=== PATIENT | male | born 1935 | race Hispanic/Latino ===

== ENCOUNTER 2017-12-19 12:44 | Inpatient (IN) | payer MEDICARE, OTHER ==
[~2017-12-19] VITALS: Ht 162.6 cm; Wt 55.3 kg
[2017-12-19 13:45] LABS: BASOPHILS # (AUTO) 0.1 (0.0-0.1); BASOPHILS % 0.6 % (0.0-1.0); EOSINOPHILS # (AUTO) 0.1 (0.0-0.4); EOSINOPHILS % 0.9 % (0.0-6.0); HEMATOCRIT 39.7 % (38.2-49.6); HEMOGLOBIN 13.7 g/dL (14.0-18.0); LYMPHOCYTES # (AUTO) 1.1 (1.0-3.2); LYMPHOCYTES % 10.4 % (18.0-39.1); MEAN CORPUSCULAR HEMOGLOBIN 31.8 pg (28-32); MEAN CORPUSCULAR HGB CONC 34.5 g/dL (31-35); MEAN CORPUSCULAR VOLUME 92.1 fL (81-99); MONOCYTES # (AUTO) 0.7 (0.2-0.8); MONOCYTES % 6.5 % (4.4-11.3); NEUTROPHILS # (AUTO) 8.8 (2.1-6.9); NEUTROPHILS % 81.3 % (38.7-80.0); PLATELET COUNT 251 x10e3/uL (140-360); RED BLOOD COUNT 4.31 x10e6/uL (4.3-5.7); RED CELL DISTRIBUTION WIDTH 14.7 % (11.7-14.4)
[2017-12-19 13:56] LABS: INR 1.08; PROTHROMBIN TIME 13.2 seconds (11.9-14.5)
[2017-12-19 13:57] LABS: PARTIAL THROMBOPLASTIN TIME 27.5 seconds (23.8-35.5)
[2017-12-19 14:03] LABS: ALANINE AMINOTRANSFERASE 27 IU/L (0-55); ALBUMIN 3.7 g/dL (3.5-5.0); ALKALINE PHOSPHATASE 82 IU/L (40-150); ANION GAP 18.8 mmol/L (8-16); BLOOD UREA NITROGEN 16 mg/dL (7-26); BUN/CREATININE RATIO 23 (6-25); CALCIUM 9.6 mg/dL (8.4-10.2); CARBON DIOXIDE 23 mmol/L (22-29); CHLORIDE 100 mmol/L (98-107); CREATINE KINASE 75 IU/L (30-200); CREATININE, SERUM 0.69 mg/dL (0.72-1.25); EST GLOMERULAR FILTRATION RATE > 60 ML/MIN (60-); GLUCOSE 98 mg/dL (74-118); POTASSIUM 3.8 mmol/L (3.5-5.1); SODIUM 138 mmol/L (136-145)
--- NOTE | 2017-12-19 14:12 | Diagnostic Imaging Report ---
EXAMINATION: CHEST SINGLE (PORTABLE) 12/19/2017 1:00 PM COMPARISON: None INDICATION: Cough, shortness of breath DISCUSSION: LINES: None. LUNGS: Mild biapical scarring. No focal consolidation PLEURA: Blunting of the left costophrenic angle may be related to pleural scarring. No pneumothorax. HEART AND MEDIASTINUM: Normal heart size. Moderate tortuosity of the thoracic aorta. BONES AND SOFT TISSUES: No acute osseous lesion. Multilevel degenerative changes of the thoracic spine IMPRESSION: Biapical pleural/parenchymal scarring as well as pleural scarring in the left lung base. No evidence of infection or pulmonary edema. Jorje Weiner MD Signed by: Dr. Jorje Weiner M.D. on 12/19/2017 2:09 PM
[2017-12-19 14:23] LABS: THYROID STIMULATING HORMONE 2.363 uIU/mL (0.350-4.940)
[2017-12-19 17:34] LABS: CLARITY,URINE HAZY (CLEAR); COLOR,URINE YELLOW (YELLOW); LEUKOCYTE ESTERASE ,URINE NEGATIVE (NEGATIVE); NITRITE,URINE NEGATIVE (NEGATIVE)
[2017-12-19 17:35] LABS: BILIRUBIN,URINE NEGATIVE (NEGATIVE); KETONES,URINE TRACE (NEGATIVE); PROTEIN,URINE DIPSTICK NEGATIVE (NEGATIVE); RBC,URINE 0-5 /HPF (0-5); URINE UROBILINOGEN 0.2 mg/dL (0.2 - 1); WBC,URINE (MAN) 0-5 /HPF (0-5)
[2017-12-19 17:36] LABS: BACTERIA,URINE RARE /HPF; EPITHELIAL CELLS,URINE RARE /LPF
--- NOTE | 2017-12-19 18:12 | Diagnostic Imaging Report ---
EXAM: CT Chest WITH contrast 12/19/2017 4:12 PM INDICATION: Shortness of breath, weakness COMPARISON: Same-day chest radiograph TECHNIQUE: Chest was scanned utilizing a multidetector helical scanner from the lung apex through the level of the adrenal glands after the uneventful administration of IV contrast. Coronal and sagittal reformations were obtained. Pulmonary embolus protocol was performed. IV CONTRAST: 100 mL of Isovue-370 RADIATION DOSE: Total DLP: 397.31 mGy*cm Estimated effective dose: (DLP x 0.014 x size factor) mSv COMPLICATIONS: None FINDINGS: LINES/ TUBES: None. PULMONARY ARTERIES: Technically adequate examination. There is a filling defect in a right lower lobe segmental pulmonary artery (series 2, image 68), consistent with pulmonary embolus. No other pulmonary emboli are seen. The main pulmonary artery is normal in caliber, measuring 2.2 cm. LUNGS AND AIRWAYS: Biapical and bibasilar subpleural scarring. An irregular nodular opacity in the right upper lobe (series 3, image 40) measures 1.1 cm. No focal consolidations. Tiny centrilobular nodules in the superior segment of the left lower lobe (series 3, image 51) and in the right upper lobe (image 58) measure up to about 3 mm and are likely inflammatory. The airways are normal. PLEURA: The pleural spaces are clear. HEART AND MEDIASTINUM:No mediastinal, hilar or axillary lymphadenopathy. The heart is normal in size. There is a small pericardial effusion dense atherosclerotic calcifications of the coronary arteries and thoracic aorta. The visualized thyroid gland is normal. UPPER ABDOMEN: Limited evaluation of the upper abdomen. There are dense atherosclerotic calcifications of the aorta and its branches. Thickening of the adrenal glands without discrete nodule may be due to hyperplasia. BONES: No aggressive lytic or blastic lesions. Multilevel degenerative changes of the thoracic spine. SOFT TISSUES: Unremarkable. IMPRESSION: 1. Small right lower lobe segmental pulmonary embolus.This finding was discussed with Dr. Robledo at 6:08 PM on 12/19/2017. 2. 1.1 cm irregular nodular opacity in the right upper lobe. This may be inflammatory. Recommend follow-up CT in 3-6 months to ensure resolution. 3. Biapical and bibasilar scarring. Signed by: Dr. Jorje Weiner M.D. on 12/19/2017 6:09 PM
[2017-12-19] MEDS ORDERED: ENOXAPARIN SODIUM INJ 100 MG/ML SYR SC SCH (18:15)
[2017-12-19] MEDS ORDERED: SODIUM CHLORIDE 0.9% 1000ML 1,000 ML IV SCH (18:22)
[2017-12-19] MEDS ORDERED: ONDANSETRON HCL INJ 2 MG/ML VIAL IV PRN (18:30)
[2017-12-19] MEDS: ENOXAPARIN INJ 80 MG/0.8 ML SYR SC SCH (19:01)
[2017-12-19] MEDS ORDERED: RAMIPRIL5 MG PO (19:03)
[2017-12-19] MEDS ORDERED: NAMENDA10 MG (19:03)
[2017-12-19] MEDS ORDERED: METFORMIN HCL500 MG PO (19:03)
[2017-12-19] MEDS ORDERED: ATORVASTATIN CA80 MG PO (19:03)
[2017-12-19 20:14] VITALS: BP 133/64
[2017-12-19] MEDS ORDERED: ACETAMINOPHEN 325 MG TAB PO PRN (20:15)
[2017-12-19] MEDS ORDERED: DOCUSATE SODIUM 100 MG CAP PO PRN (20:15)
[2017-12-19] MEDS ORDERED: BENZONATATE 100 MG CAP PO PRN (20:15)
[2017-12-19 20:46] VITALS: BP 133/64
[2017-12-19] MEDS: INSULIN LISPRO 100 UNIT/1 ML 3ML VIAL SQ SCH (21:00)
[2017-12-19] MEDS ORDERED: NON-FORMULARY MEDICATION (Atorvastatin Calcium 80 MG) PO SCH (21:00)
[2017-12-19] MEDS: ATORVASTATIN 40 MG TAB PO SCH (21:00)
[2017-12-19] MEDS: AZITHROMYCIN 500MG/NS 250 ML 250 ML IV SCH (21:12)
[2017-12-19] MEDS: D5.45%NS/KCL 20MEQ 1,000 ML IV SCH (21:12)
[2017-12-19] MEDS: CEFTRIAXONE SOD 1 GM VIAL IV SCH (21:12)
[2017-12-19] MEDS ORDERED: IOPAMIDOL 370 MG/ML 200 ML INFUS..BTL INJ ONE (22:17)
[2017-12-19] MEDS ORDERED: SODIUM CHLORIDE 0.9% 100 ML 100 ML ONE (22:17)
--- NOTE | 2017-12-19 23:11 | History and Physical ---
LOCATION: ER room 11. PRESENTING COMPLAINT: Cough with mucoid sputum with shortness of breath for last 3 days, got worsened today. HISTORY OF PRESENT ILLNESS: An 82-year-old male was admitted from ER. Patient was brought to ER by his daughter. Patient is nonverbal since his last stroke earlier this year, when he was admitted at [facility] as per patient's daughter's statement. He got bedbound since his last stroke. He had also 2 previous strokes in the past. Patient also had history of prostate cancer. He got radiotherapy last year at [facility]. Patient was reasonably well other than bedbound status since last 3 days. He started cough and shortness of breath. Patient did not have any fever. He had cough with profuse mucoid sputum as per his daughter's statement. Patient was able to swallow, but he started coughing with worsening sputum production and shortness of breath this morning. Patient was brought to office of his PCP, Dr. Solomon Santos. He gave patient 1 intramuscular injection of antibiotic as per patient's daughter's statement. Patient was recommended coming to the hospital that is why patient's daughter brought him to this hospital. Patient reportedly did not have any chest pain, nausea, vomiting, abdominal pain, diarrhea. He is nonverbal, but can follow verbal commands. Patient has right-sided hemiparesis, status post last stroke along with aphasia. Patient did not have any loss of consciousness, seizure, headache during the present episode of illness as per his daughter's statement. REVIEW OF SYSTEMS: As per patient's daughter statement. CONSTITUTIONAL: No fever, chills or rigor. ENT: No nasal congestion, no discharge from ear. No visual disturbance. CARDIOVASCULAR: No chest pain, no palpitation. PULMONARY: Cough with mucoid sputum. No hemoptysis. Shortness of breath as per HPI. GASTROINTESTINAL: No abdominal pain, nausea, vomiting. Patient started coughing on taking p.o. food this morning as per patient's daughter's statement. No abdominal pain, nausea, vomiting. No blood in stool, no black stool. : No dysuria, no hematuria. Patient has urinary incontinence. MUSCULOSKELETAL, SKIN, LYMPHATIC: No joint pain, no joint swelling, no skin rash, no swelling, no skin ulcer. NEUROLOGICAL: Right-sided hemiparesis and aphasia, status post ischemic stroke times 3 last time earlier this year. 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 No history of CAD as per patient's daughter's statement. HISTORY OF PAST SURGERY: Herniorrhaphy in remote past. ALLERGIES: ASPIRIN. HOME MEDICATIONS: Patient was on metformin, ramipril, and Lipitor. SOCIAL HISTORY: Patient lives with his daughter in [place]. 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 HABITS: No smoking, drinking, substance abuse history. FAMILY HISTORY: Positive for diabetes mellitus and cancer. EXAM VITALS: BP 130/71, pulse 91, temp 98.3, respiration 24, SpO2 97% at room air. GENERAL: Alert, lying in bed without any distress. Patient appears emaciated with generalized muscle atrophy. HEENT: Pupils are equally reacting. No facial asymmetry. Oral mucosa dry. NECK: No JVD, no carotid bruit, no lymphadenopathy, no thyromegaly. HEART: S1, S2, regular. No murmur. LUNGS: Air entry equal on both sides. No crackles, no rhonchi. ABDOMEN: Soft, nontender. No palpable mass. Scaphoid abdomen. Bowel sounds active in all quadrants. EXTREMITIES: No edema, cyanosis, clubbing. Generalized muscle wasting. NEUROLOGIC: Right upper and lower extremity muscle strength 2/5-3/5 left-sided upper and lower extremities muscle strength 4/5 plantar flexor bilateral. Speech, patient can follow verbal command. LAB DATA: CBC: WBC 10.35, hemoglobin 13.7, hematocrit 39, platelets 251,000, MCV 92, RDW 14, neutrophil 81, lymphocyte 10. PT 13.2, INR 1.08, PTT 27.5. Chemistry panel: Sodium 130, potassium 3.8, chloride 100, CO2 23, anion gap 15, BUN 15, creatinine 0.69, glucose 98, calcium 9.6, total bilirubin 0.5, AST 23, ALT 27, alk phos 82, CK 75, CK-MB 0.6, troponin-I 0.002, BNP 18.9, total protein 7.3, albumin 3.7, globulin 3.6. TSH 2.36. PT 13.2, INR 1.08, PTT 27.5. Urinalysis, negative for protein, glucose. Ketone trace. Blood trace. Leukocyte esterase negative. WBC 0-5, RBC 0-5. MICROBIOLOGY DATA: Blood culture, urine culture in progress. RADIOLOGICAL DATA: X-ray of chest single view, mild apical scarring and no focal consolidation. Blunting of the left costophrenic angle may be related to pleural scarring. No pneumothorax. Normal heart size, moderate tortuosity of the thoracic aorta. CT of chest with IV contrast, there was filling defect in the right lower lobe segmental pulmonary artery, constituted pulmonary embolus. No other pulmonary emboli seen. Mean pulmonary artery is normal. Biapical, bibasilar subpleural scarring. Irregular nodular opacity in the right upper lobe, 1.1 cm. No focal consolidation. Tiny centrilobular nodules in the superior segment of the left lower lobe and in the right upper lobe measuring 3 mm and likely inflammatory. The area reveals a normal pleural spaces earlier. No mediastinal hilar irregular lymphadenopathy. The heart size is normal. Small pericardial effusion. Atherosclerotic calcification of the coronary arteries. Thyroid gland is normal. Dense atherosclerotic calcification of the aorta and its branches. Degenerative changes in the thoracic spine. EKG: Normal sinus rhythm at the rate of 94 beats per minute. Intervals within normal limit. No specific ST/T changes. Small Q-wave seen on leads 1 and avl. ASSESSMENT AND PLAN 1. Cough with shortness of breath secondary to bronchitis versus early pneumonia. Patient was started on antibiotics by his primary care physician in the office. He would be kept on Rocephin, azithromycin for now. Will send sputum for culture. 2. Shortness of breath also due to acute pulmonary embolism affecting right segmental lower lobe pulmonary artery. Patient started on Lovenox therapeutic dose. Would continue Lovenox. Follow park interpretive ranger's recommendation. Dr. Irby is consulted from ER. 3. History of ischemic stroke with right hemiparesis and aphasia. Patient's EKG did not show arrhythmia. He was on Eliquis in the past. As per his daughter's statement was stopped because of patient's frequent fall. Patient is now bedbound. He would need anticoagulation for pulmonary embolism. Would continue Lovenox for now and oral anticoagulation as per park interpretive ranger's and dispatch machine runner's recommendation. 4. Bedbound status. Patient has generalized muscle atrophy. He does not have any tenderness or swelling of the calf muscle. Will ask for a venous Doppler of bilateral lower extremities. 5. Cough with swallowing as per patient's daughter' statement. Would ask for a speech therapy evaluation for swallowing. 6. Dehydration. Patient has ketonuria. He has poor oral intake. Appears has also malnutrition. Will keep patient on IV fluid along with glucose. Patient has mild diabetes mellitus. Will keep patient on the sliding scale insulin. 7. Hypertension. Continue regular medication. 8. Hyperlipidemia. Continue regular medication. 9. Diabetes mellitus, type 2. Patient was on metformin. Would hold metformin. Patient got IV contrast for CT of chest. Keep patient on sliding scale insulin for now. 10. Gastrointestinal prophylaxis. Will keep patient on Protonix p.o. for now. 11. Discharge plan will depend upon pulmonology's, dispatch machine runner's recommendation, and patient's response to treatment. Job#: [id number] YUMIKO
[2017-12-20] VITALS (7 sets, daily range): BP systolic 108–159; BP diastolic 56–98
[2017-12-20 02:48] LABS: CREATINE KINASE MB 0.8 ng/mL (0-5.0)
[2017-12-20 06:00] LABS: BASOPHILS # (AUTO) 0.1 (0.0-0.1); EOSINOPHILS # (AUTO) 0.2 (0.0-0.4); EOSINOPHILS % 2.8 % (0.0-6.0); HEMATOCRIT 37.1 % (38.2-49.6); HEMOGLOBIN 12.7 g/dL (14.0-18.0); LYMPHOCYTES # (AUTO) 1.1 (1.0-3.2); LYMPHOCYTES % 17.5 % (18.0-39.1); MEAN CORPUSCULAR HEMOGLOBIN 31.7 pg (28-32); MEAN CORPUSCULAR HGB CONC 34.2 g/dL (31-35); MEAN CORPUSCULAR VOLUME 92.5 fL (81-99); MONOCYTES # (AUTO) 0.5 (0.2-0.8); MONOCYTES % 8.6 % (4.4-11.3); NEUTROPHILS # (AUTO) 4.3 (2.1-6.9); NEUTROPHILS % 69.8 % (38.7-80.0); PLATELET COUNT 187 x10e3/uL (140-360); RED BLOOD COUNT 4.01 x10e6/uL (4.3-5.7); RED CELL DISTRIBUTION WIDTH 14.6 % (11.7-14.4)
[2017-12-20] MEDS: D5.45%NS/KCL 20MEQ 1,000 ML IV SCH ×2 (06:15→16:07)
[2017-12-20 06:36] LABS: ALANINE AMINOTRANSFERASE 18 IU/L (0-55); ALBUMIN 3.2 g/dL (3.5-5.0); ALBUMIN/GLOBULIN RATIO 1.1 (0.8-2.0); ALKALINE PHOSPHATASE 70 IU/L (40-150); AMYLASE 43 U/L (25-125); ANION GAP 11.2 mmol/L (8-16); BLOOD UREA NITROGEN 11 mg/dL (7-26); BUN/CREATININE RATIO 22 (6-25); CALCIUM 8.9 mg/dL (8.4-10.2); CARBON DIOXIDE 25 mmol/L (22-29); CHLORIDE 101 mmol/L (98-107); EST GLOMERULAR FILTRATION RATE > 60 ML/MIN (60-); GLUCOSE 99 mg/dL (74-118); LIPASE 12 U/L (8-78); MAGNESIUM 1.6 MG/DL (1.3-2.1); POTASSIUM 3.2 mmol/L (3.5-5.1); SODIUM 134 mmol/L (136-145)
[2017-12-20 07:05] LABS: CREATINE KINASE MB 0.9 ng/mL (0-5.0)
[2017-12-20] MEDS: INSULIN LISPRO 100 UNIT/1 ML 3ML VIAL SQ SCH ×4 (07:30→21:37)
[2017-12-20] MEDS ORDERED: PANTOPRAZOLE SOD 40 MG TABEC PO SCH (07:30)
[2017-12-20] MEDS ORDERED: RAMIPRIL 5 MG CAP PO SCH (09:00)
[2017-12-20] MEDS: ENOXAPARIN INJ 80 MG/0.8 ML SYR SC SCH ×2 (09:48→21:05)
[2017-12-20] MEDS ORDERED: POTASSIUM CHLORIDE 20MEQ/100ML 200 ML IV ONE (11:00)
[2017-12-20] MEDS ORDERED: SODIUM CHLORIDE 0.9% 500ML 500 ML ONE (11:35)
[2017-12-20 11:47] LABS: CREATINE KINASE MB 0.9 ng/mL (0-5.0)
[2017-12-20] MEDS: METOPROLOL TARTRATE INJ 1 MG/ML VIAL IV SCH ×2 (11:52→21:05)
--- NOTE | 2017-12-20 14:29 | Diagnostic Imaging Report ---
EXAM: Complete Abdominal Ultrasound INDICATION: Abdominal pain. . Anorexia/ ca prostate COMPARISON: None. TECHNIQUE: Transverse and longitudinal images of the upper abdomen were obtained. FINDINGS: Liver: Size: 13.8 cm in the right midclavicular line, normal Appearance: Mild coarsened echotexture., smooth contour Mass: No focal masses Spleen: Size: 8.2 cm in length, normal Echogenicity: Normal Mass: No focal masses Gallbladder: Stones/Sludge: None Wall: 0.34 cm which is borderline thickened, likely due to underdistention. Appearance: No wall thickening, pericholecystic fluid or hydrops. Sonographic Hale's Sign: Negative Bile Ducts: Intrahepatic Ducts: No dilatation Extrahepatic Ducts: Common bile duct measures 0.4 cm, no dilatation Pancreas: Not visualized due to shadowing from overlying bowel gas. Kidneys: Length: Right 11.2 cm Left 9.6 cm Echogenicity: Normal Collecting System: No hydronephrosis Stone: None Cyst/Mass: None Vessels: Aorta: Visualized portions are normal Inferior Vena Cava: Not visualized due to shadowing from overlying bowel gas. Main Portal Vein: 0.9 cm, normal size with hepatopetal flow. Free Fluid: No ascites or pleural effusion IMPRESSION: No acute abdominal abnormality. Signed by: Dr. Ibrahima Paz M.D. on 12/20/2017 2:25 PM
--- NOTE | 2017-12-20 17:19 | Consultation ---
DATE OF CONSULTATION: December 20, 2017 CARDIOLOGY CONSULTATION REFERRING PHYSICIAN: Solomon Santos MD REASON FOR CONSULTATION: Pulmonary embolism. HISTORY OF PRESENT ILLNESS: Mr. Ta is a pleasant, 82-year-old man with advanced vascular dementia, prior cerebrovascular accident with residual right-sided paresis, diabetes mellitus, hypertension, dyslipidemia. Previously on anticoagulation with Eliquis as per the daughter, Kamila, due to issues with recurrent strokes and possible arrhythmia, unspecified. He had anticoagulation discontinued due to recurrent falls. He is now bedbound. He presents to [facility] after progressively worsening shortness of breath and cough with productive sputum over the following 3 to 4 days. He was seen by his primary care provider who initiated antibiotics and directed the patient to the ER. Initial evaluation was significant for a CAT scan with 1.1-cm irregular nodule, possibly reactive, for which followup with imaging studies is advised by the radiology report, and segmental pulmonary embolism was also found. His white count was slightly elevated at 10.3. His creatinine is 0.6. His serial cardiac enzymes and BNP were within normal values. Upon our conversation today, he is minimally verbal. He does track with gaze. Discussed at length with daughter. EKG shows normal sinus rhythm with nonspecific repolarization abnormalities. REVIEW OF SYSTEMS: A 12-system review is negative except for as noted above. ALLERGIES: PER EMR, ASPIRIN. PAST MEDICAL HISTORY: As per HPI, diabetes, hypertension, dyslipidemia, CVA. HOME MEDICATIONS: Please see home medication reconciliation form. SOCIAL HISTORY: Lives with daughter. Retired. No smoking, alcohol or drugs reported. FAMILY HISTORY: Significant for diabetes and cancer. PHYSICAL EXAMINATION VITAL SIGNS: Blood pressure 130/70, heart rate 64, respiratory rate 14. O2 sat is 97% on room air. GENERAL: No acute distress. Alert, active. NECK: No JVD. No carotid bruit. CHEST: Clear to auscultation bilaterally. CARDIOVASCULAR: Regular rate and rhythm, normal S1 and S2. No S3 or S4. ABDOMEN: Soft and nontender. EXTREMITIES: No edema. Warm distal extremities. STUDIES: Reviewed. CAT scan, chest x-ray, and EKG reviewed. Significant studies as per HPI. Also, hemoglobin 13.7. INR is 1.08. Normal transaminases. Urinalysis with white blood cells 0-5 and red blood cells 0-5. Blood cultures and urine cultures sent and pending. ASSESSMENT 1. Pulmonary embolus, segmental, with no evidence of high risk features: negative troponin and normal B-type natriuretic peptide. No hypotension, no tachycardia, no syncope or presyncope. 2. Hypertension. 3. Dyslipidemia. 4. Diabetes. 5. History of cerebrovascular accident. 6. Arrhythmia, unspecified, with telemetry apparently showing normal sinus rhythm. RECOMMENDATIONS: Discussed at length with the patient and daughter. The patient was previously on Eliquis. Discussed options for anticoagulation including vitamin K antagonist and NOACs. The patient's daughter prefers Eliquis since he previously was on it. Would advise initiating eliquis 10 mg every 12 hours for 7 days followed by 5 mg every 12 hours. Given lack of initial features and advanced comorbidities and bedridden state, no additional interventions are advised at this point in time from a pulmonary embolism standpoint. Antibiotics, defer to primary service. Resume rest of cardiovascular medications. Thank you for the opportunity to participate in the care of this nice gentleman. Thank you for this kind referral. Job#: [id number] YUMIKO
[2017-12-20] MEDS: CEFTRIAXONE SOD 1 GM VIAL IV SCH (21:04)
[2017-12-20] MEDS: AZITHROMYCIN 500MG/NS 250 ML 250 ML IV SCH (21:04)
[2017-12-20] MEDS: ATORVASTATIN 40 MG TAB PO SCH (21:05)
--- NOTE | 2017-12-20 21:20 | Consultation ---
DATE OF CONSULTATION: December 20, 2017 PULMONARY CONSULTATION REASON FOR THE CONSULT: Pulmonary embolism, abnormal CT of the chest. HPI: Mr. Ta is an 82-year-old male who presented with increasing cough and phlegm and shortness of breath. He is bedbound. He is able to eat. He has previous history of stroke. For last 6 months, he has not walked. In the emergency room, patient was started on IV antibiotics, and a CT of the chest was done. CT of the chest reported a small right lower lobe segmental pulmonary embolus and 1.1 cm nodule in the right upper lobe, no clear-cut evidence of pneumonia. He is currently denying any complaints of chest pain, nausea, vomiting, shortness of breath. He is awake and alert and following commands. REVIEW OF SYSTEMS: GENERAL: Denies any fever or chills. HEAD: Denies any head trauma. ENT: Denies any earache. CVS: Denies any chest pain. RESPIRATORY: Cough and shortness of breath. The rest of the review of systems are negative except as in HPI. PAST MEDICAL HISTORY: History of stroke, bedbound, hypertension. Patient has ischemic stroke with right hemiparesis. Also has history of prostate cancer, last year has received radiation treatment. Bedbound status and debility. Patient's daughter also told me that he has been on Xarelto, but it was stopped because of his recurrent falls, but now he has been bedbound for 6 months, it was previously when he was trying to walk. Hernia repair in the remote past. SOCIAL HISTORY: He has never smoked. He lives with his daughter currently. He does not drink as well. FAMILY HISTORY: Significant for diabetes and cancer. PHYSICAL EXAMINATION: VITAL SIGNS: Temperature 96, pulse of 64, blood pressure 135/63, respiratory rate of 18, O2 sat 98% on room air. HEENT: Head atraumatic, normocephalic. NECK: Supple. CHEST: Clear to auscultation bilaterally. No wheezing. HEART: S1 and S2 audible. No murmurs, gallops, or rubs. ABDOMEN: Soft, nontender. EXTREMITIES: No clubbing, cyanosis, or edema. NEUROLOGICAL: Awake and alert, but minimal conversation, following commands. LABS: Sodium 134, potassium 3.2, chloride 101, BUN 11, creatinine 0.5. White count of 10,000 when he came in, now white count is 6000; hemoglobin 12.7; platelets 187,000. INR is 1.08. Blood cultures have been pending. CT chest, I have reviewed the images. Patient has a small segmental emboli in the right lower lobe arteries, there is a right-sided nodule as well, no evidence of pneumonia. ASSESSMENT/PLAN: Mr. Ta is an 82-year-old male who presented with increasing cough and phlegm. Patient eats at home, has previous history of stroke. CURRENT PROBLEMS: 1. Increasing cough and phlegm, could be questionable dysphagia because of the stroke. Recommend swallowing evaluation. 2. Segmental pulmonary embolism. I had a detailed discussion with patient's daughter over the phone. Patient is now bedbound, he used to walk and had recurrent falls, and Xarelto was stopped. At this point, I explained to her in detail about the risks and benefits of anticoagulation and she opted that patient should be anticoagulated. Since the patient has ongoing risk of pulmonary embolism or DVTs because of being bedbound, I recommend that patient should have chronic anticoagulation granted the family understand the risks and benefits of the anticoagulation. Currently, he is on Lovenox which can be switched to Xarelto upon discharge. 3. Lung nodule. It is greater than 1 cm. Patient has no history of smoking, however, he is high risk because he had a history of prostate cancer last year. Since it is in acute setting, I have recommended that a CT chest needs to be done in 3 months to follow up on the nodule because if the nodule increases in size or stays the same, then biopsy versus PET scan will need to be considered. 4. At this point, also I will recommend continuing the antibiotic for possibly questionable aspiration. I thank Dr. Groves for this consultation. Job#: [id number]
[2017-12-21] VITALS (7 sets, daily range): BP systolic 153–177; BP diastolic 83–98
[2017-12-21] MEDS: D5.45%NS/KCL 20MEQ 1,000 ML IV SCH ×2 (02:15→12:15)
[2017-12-21 06:02] LABS: BASOPHILS % 0.2 % (0.0-1.0); EOSINOPHILS % 0.1 % (0.0-6.0); HEMATOCRIT 42.6 % (38.2-49.6); HEMOGLOBIN 14.6 g/dL (14.0-18.0); LYMPHOCYTES # (AUTO) 0.6 (1.0-3.2); LYMPHOCYTES % 4.4 % (18.0-39.1); MEAN CORPUSCULAR HEMOGLOBIN 31.1 pg (28-32); MEAN CORPUSCULAR HGB CONC 34.3 g/dL (31-35); MEAN CORPUSCULAR VOLUME 90.6 fL (81-99); MONOCYTES # (AUTO) 0.8 (0.2-0.8); MONOCYTES % 5.5 % (4.4-11.3); NEUTROPHILS # (AUTO) 13.1 (2.1-6.9); NEUTROPHILS % 89.5 % (38.7-80.0); PLATELET COUNT 274 x10e3/uL (140-360); RED CELL DISTRIBUTION WIDTH 14.5 % (11.7-14.4)
[2017-12-21 06:37] LABS: ANION GAP 15.5 mmol/L (8-16); BLOOD UREA NITROGEN 8 mg/dL (7-26); BUN/CREATININE RATIO 13 (6-25); CALCIUM 9.6 mg/dL (8.4-10.2); CARBON DIOXIDE 24 mmol/L (22-29); CHLORIDE 99 mmol/L (98-107); EST GLOMERULAR FILTRATION RATE > 60 ML/MIN (60-); GLUCOSE 176 mg/dL (74-118); POTASSIUM 3.5 mmol/L (3.5-5.1); SODIUM 135 mmol/L (136-145)
[2017-12-21] MEDS: INSULIN LISPRO 100 UNIT/1 ML 3ML VIAL SQ SCH ×4 (07:30→21:29)
[2017-12-21] MEDS: METOPROLOL TARTRATE INJ 1 MG/ML VIAL IV SCH ×2 (09:00→21:32)
[2017-12-21] MEDS: PANTOPRAZOLE 40 MG 10ML VIAL IV SCH (09:00)
[2017-12-21] MEDS: ENOXAPARIN INJ 80 MG/0.8 ML SYR SC SCH ×2 (09:00→21:32)
[2017-12-21] MEDS: PIPER-TAZ 3.375 GM 50 ML IV SCH ×2 (12:00→18:00)
[2017-12-21] MEDS: AMLODIPINE BESYLATE 5 MG TAB PO SCH (17:35)
[2017-12-21] MEDS: ATORVASTATIN 40 MG TAB PO SCH ×2 (19:28→21:32)
--- NOTE | 2017-12-21 19:36 | Progress Note ---
DATE: December 21, 2017 CARDIOLOGY PROGRESS NOTE SUBJECTIVE: Nonverbal. No complaints today. PHYSICAL EXAMINATION VITAL SIGNS: Temperature 97.1, heart rate 80, respiratory rate 16, blood pressure 171/85. GENERAL: In no acute distress. Alert. NECK: No JVD. CHEST: Clear to auscultation. CARDIOVASCULAR: Regular rate and rhythm, normal S1 and S2. ABDOMEN: Soft. EXTREMITIES: No edema. CARDIOVASCULAR MEDICATIONS: Reviewed. On amlodipine, Lovenox, atorvastatin, metoprolol. STUDIES: Reviewed. Hemoglobin 14.6, platelets 274. Creatinine 0.6, glucose 160. ASSESSMENT 1. Pulmonary embolism. 2. Dementia. 3. Hypertension. 4. Dyslipidemia. RECOMMENDATIONS 1. Eliquis if okay with the rest of the treating physicians for treatment of pulmonary embolism. 2. Continue the rest of the cardiovascular medications as blood pressure allows. If needed, adjust antihypertensives upwards. Can increase amlodipine if necessary as well as metoprolol. Will assess tomorrow. Continue the rest of the cardiovascular medications. 3. Okay to discharge tomorrow if the blood pressure is optimized and once anticoagulation is agreed upon by the other treating physicians. Job#: [id number]
[2017-12-21] MEDS: AZITHROMYCIN 500MG/NS 250 ML 250 ML IV SCH (21:35)
[2017-12-22] MEDS: PIPER-TAZ 3.375 GM 50 ML IV SCH ×4 (00:02→17:43)
[2017-12-22] MEDS: D5.45%NS/KCL 20MEQ 1,000 ML IV SCH ×3 (00:02→18:15)
[2017-12-22 05:34] LABS: BASOPHILS % 0.1 % (0.0-1.0); HEMOGLOBIN 14.1 g/dL (14.0-18.0); LYMPHOCYTES # (AUTO) 0.9 (1.0-3.2); LYMPHOCYTES % 6.5 % (18.0-39.1); MEAN CORPUSCULAR HEMOGLOBIN 31.4 pg (28-32); MEAN CORPUSCULAR HGB CONC 34.4 g/dL (31-35); MEAN CORPUSCULAR VOLUME 91.3 fL (81-99); MONOCYTES # (AUTO) 0.9 (0.2-0.8); MONOCYTES % 6.9 % (4.4-11.3); NEUTROPHILS # (AUTO) 11.5 (2.1-6.9); NEUTROPHILS % 86.2 % (38.7-80.0); PLATELET COUNT 265 x10e3/uL (140-360); RED BLOOD COUNT 4.49 x10e6/uL (4.3-5.7); RED CELL DISTRIBUTION WIDTH 14.5 % (11.7-14.4)
[2017-12-22 06:01] LABS: ALANINE AMINOTRANSFERASE 14 IU/L (0-55); ALBUMIN 3.2 g/dL (3.5-5.0); ALKALINE PHOSPHATASE 69 IU/L (40-150); ANION GAP 13.5 mmol/L (8-16); BLOOD UREA NITROGEN 9 mg/dL (7-26); BUN/CREATININE RATIO 14 (6-25); CALCIUM 9.3 mg/dL (8.4-10.2); CARBON DIOXIDE 25 mmol/L (22-29); CHLORIDE 101 mmol/L (98-107); CREATININE, SERUM 0.66 mg/dL (0.72-1.25); EST GLOMERULAR FILTRATION RATE > 60 ML/MIN (60-); GLUCOSE 205 mg/dL (74-118); POTASSIUM 3.5 mmol/L (3.5-5.1); SODIUM 136 mmol/L (136-145)
[2017-12-22 06:23] VITALS: BP 157/81
[2017-12-22 07:25] VITALS: BP 147/74
[2017-12-22] MEDS: INSULIN LISPRO 100 UNIT/1 ML 3ML VIAL SQ SCH ×4 (08:00→20:42)
[2017-12-22] MEDS: METOPROLOL TARTRATE INJ 1 MG/ML VIAL IV SCH (08:25)
[2017-12-22] MEDS: ENOXAPARIN INJ 80 MG/0.8 ML SYR SC SCH (08:30)
[2017-12-22] MEDS: AMLODIPINE BESYLATE 5 MG TAB PO SCH (08:30)
[2017-12-22] MEDS: PANTOPRAZOLE 40 MG 10ML VIAL IV SCH (08:30)
[2017-12-22 09:20] VITALS: BP 147/74
[2017-12-22 12:00] VITALS: BP 141/86
[2017-12-22] MEDS ORDERED: METOPROLOL TARTRATE 25 MG TAB PO SCH ×2 (14:00→22:00)
--- NOTE | 2017-12-22 15:11 | Diagnostic Imaging Report ---
EXAM: Modified barium swallow INDICATION: Dysphagia COMPARISON: None FINDINGS This examination was conducted in conjunction with speech pathologist. Patient was given, by mouth, liquids and solids of various consistencies. Examination showed premature spillage over base of tongue, vallecula and piriform sinuses with all consistencies. No laryngeal penetration or aspiration. Moderate vallecular, pyriform sinus residue following swallows of all consistencies. Fluoro time: 02:59 minutes IMPRESSION: <No penetration or aspiration. Please see speech pathology report for detailed description and recommendations.> Signed by: Dr. Vinay Kilgore M.D. on 12/22/2017 3:07 PM
[2017-12-22 16:00] VITALS: BP 137/85
--- NOTE | 2017-12-22 16:15 | Progress Note ---
DATE: December 22, 2017 CARDIOLOGY PROGRESS NOTE SUBJECTIVE: No complaints. PHYSICAL EXAMINATION VITAL SIGNS: Temperature 98.6. Heart rate 103 to 150, atrial fibrillation with episodes of rapid ventricular response on tele. Respiratory rate 18. Blood pressure 141/86. O2 sat is 97% on room air. GENERAL: In no acute distress. Alert. CHEST: Clear to auscultation. CARDIOVASCULAR: Irregularly irregular rate and rhythm, normal S1 and S2. No S3 or S4. Systolic ejection murmur 1/6. ABDOMEN: Soft. EXTREMITIES: No edema. CARDIOVASCULAR MEDICATIONS 1. Metoprolol tartrate initiated today at 25 mg every 8 hours. 2. Amlodipine 5 mg daily. Will discontinue to provide further room for up-titration of beta karime. 3. Atorvastatin 80 mg nightly. 4. Eliquis 5 mg, start at 10 mg every 12 hours for 7 days followed by 5 mg every 12 hours thereafter for PE treatment. STUDIES: Reviewed. ASSESSMENT 1. Pulmonary embolism. 2. Atrial fibrillation with episodes of rapid ventricular response. 3. Dementia. 4. Hypertension. 5. Dyslipidemia. RECOMMENDATIONS 1. Eliquis at PE treatment dose per protocol. 2. Discontinue Lovenox. 3. Up-titrate beta karime. 4. Discontinue amlodipine. Job#: [id number]
[2017-12-22] MEDS: APIXABAN 5 MG TABLET PO SCH (18:22)
[2017-12-22] MEDS ORDERED: APIXABAN 5 MG TABLET PO SCH (19:00)
[2017-12-22 20:00] VITALS: BP 145/72
[2017-12-22] MEDS: AZITHROMYCIN 500MG/NS 250 ML 250 ML IV SCH (20:42)
[2017-12-22] MEDS: METOPROLOL TARTRATE 50 MG TAB PO SCH (22:06)
[2017-12-23] VITALS (7 sets, daily range): BP systolic 97–158; BP diastolic 71–89
[2017-12-23] MEDS: PIPER-TAZ 3.375 GM 50 ML IV SCH ×4 (00:20→17:42)
[2017-12-23] MEDS: D5.45%NS/KCL 20MEQ 1,000 ML IV SCH ×2 (03:05→17:42)
[2017-12-23] MEDS: METOPROLOL TARTRATE 50 MG TAB PO SCH ×3 (06:16→21:24)
[2017-12-23] MEDS: INSULIN LISPRO 100 UNIT/1 ML 3ML VIAL SQ SCH ×4 (07:30→21:23)
[2017-12-23] MEDS: PANTOPRAZOLE 40 MG 10ML VIAL IV SCH (08:31)
[2017-12-23] MEDS: APIXABAN 5 MG TABLET PO SCH ×2 (08:31→17:42)
--- NOTE | 2017-12-23 12:42 | Progress Note ---
DATE: December 23, 2017 CARDIOLOGY PROGRESS NOTE SUBJECTIVE: No complaints. PHYSICAL EXAMINATION VITAL SIGNS: Temperature 97.9. Heart rate 80. Respiratory rate 18. Blood pressure 158/88. O2 sat is 95% on room air. GENERAL: In no acute distress. Alert. NECK: No JVD. CHEST: Clear to auscultation. CARDIOVASCULAR: Regular rate and rhythm. Normal S1 and S2. ABDOMEN: Soft. EXTREMITIES: No edema. CARDIOVASCULAR MEDICATIONS 1. Eliquis 10 mg b.i.d. for 7 days followed by 5 mg b.i.d. thereafter. 2. Metoprolol tartrate 50 mg every 8 hours. 3. Atorvastatin 80 mg nightly. STUDIES: White blood cells 13.3, hemoglobin 14.1, platelets 265. Glucose 200. ASSESSMENT 1. Atrial fibrillation with episodes of rapid ventricular response, now improved. 2. Pulmonary embolism. 3. Advanced dementia. RECOMMENDATIONS: Continue current cardiovascular medications and monitor blood pressure. If blood pressure remains elevated over the course of the following days, can up-titrate beta karime further. He has self-converted back to sinus rhythm in the 80s to 90s as noted on telemetry. Job#: [id number]
[2017-12-23] MEDS: ALBUTEROL/IPRATROPIUM 3 ML NEB NEB PRN (19:20)
[2017-12-23] MEDS ORDERED: FUROSEMIDE INJ 10 MG/ML 4 ML VIAL IV ONE (20:45)
[2017-12-23] MEDS: ATORVASTATIN 40 MG TAB PO SCH (21:23)
[2017-12-23] MEDS: AZITHROMYCIN 500MG/NS 250 ML 250 ML IV SCH (21:23)
--- NOTE | 2017-12-23 22:03 | Diagnostic Imaging Report ---
EXAM: CHEST SINGLE (PORTABLE), AP 1 view INDICATION: Shortness of breath, abdominal distention COMPARISON: AP view of the chest December 19, 2017 FINDINGS: LINES/TUBES: None LUNGS: New consolidations in each lung base, right greater than left. PLEURA: No effusions or pneumothorax. HEART AND MEDIASTINUM: Normal size and contour. BONES AND SOFT TISSUES: Partially visualized distended stomach. IMPRESSION: 1. Findings concerning for multifocal pneumonia or aspiration. 2. Partially visualized distended the stomach. Signed by: Dr. Carolina Ibarra M.D. on 12/23/2017 9:59 PM
--- NOTE | 2017-12-23 22:03 | Diagnostic Imaging Report ---
EXAM: ABDOMEN COMP INCL UPR or DECUB, portable supine and erect INDICATION: Shortness of breath, abdominal distention COMPARISON: None FINDINGS: LINES/TUBES: None BOWEL PATTERN: Marked distention of the stomach and proximal small bowel. SOFT TISSUES: Limited evaluation secondary to motion artifact. Oral contrast seen within the stomach. Generator pack projects over the left upper abdomen. LUNG BASES: Poorly visualized secondary to motion artifact. BONES: No acute findings. IMPRESSION: Marked distention of the stomach and proximal bowel consistent with small bowel obstruction. Signed by: Dr. Carolina Ibarra M.D. on 12/23/2017 9:59 PM
[2017-12-23] MEDS ORDERED: SODIUM CHLORIDE 0.9% 1000ML 1,000 ML ONE (22:30)
[2017-12-23] MEDS ORDERED: VECURONIUM BROMIDE FOR INJ 20 MG VIAL IV STA (22:59)
[2017-12-23] MEDS ORDERED: PROPOFOL IV EMULSION 10MG/ML 100 ML IV SCH (23:00)
[2017-12-23] MEDS ORDERED: VECURONIUM BROMIDE FOR INJ 20 MG VIAL ONE (23:02)
[2017-12-23] MEDS ORDERED: AMIODARONE HCL INJ 150MG/3ML ONE (23:38)
[2017-12-23] MEDS ORDERED: NOREPINEPHRINE 8 MG/D5W 250 ML 250 ML ONE (23:39)
[2017-12-23] MEDS ORDERED: SODIUM CHLORIDE 0.9% 1000ML 1,000 ML IV ONE (23:45)
[2017-12-23] MEDS ORDERED: AMIODARONE HCL 150MG 100 ML IV ONE (23:45)
[2017-12-24] VITALS (88 sets, daily range): BP systolic 42–151; BP diastolic 23–91
[2017-12-24] MEDS: NOREPINEPHRINE INJ 4MG/4ML 8 MG in DEXTROSE 5% 250ML 242 ML IV SCH ×4 (00:04→17:56)
[2017-12-24] MEDS: D5.45%NS/KCL 20MEQ 1,000 ML IV SCH (00:15)
--- NOTE | 2017-12-24 00:22 | Diagnostic Imaging Report ---
EXAM: CHEST SINGLE (PORTABLE), AP 1 view INDICATION: Status post intubation COMPARISON: AP view of the chest December 23, 2017 FINDINGS: LINES/TUBES: Interval placement of endotracheal tube with tip at the level of the sandeep. LUNGS: Persistent consolidations in each lung, predominantly on the right. PLEURA: Possible small lateral pleural effusions. HEART AND MEDIASTINUM: Normal size and contour. BONES AND SOFT TISSUES: Partially visualized distended stomach and bowel. IMPRESSION: Interval placement of endotracheal tube with tip at the level of the sandeep. Consolidations in each lung, greatest on the right could represent aspiration or multifocal pneumonia. Partially visualized distended stomach and bowel. This study was discussed with the ER physician December 24, 2017 at 1212 hours. Signed by: Dr. Carolina Ibarra M.D. on 12/24/2017 12:19 AM
[2017-12-24 00:30] LABS: BASOPHILS % 0.3 % (0.0-1.0); HEMATOCRIT 40.3 % (38.2-49.6); LYMPHOCYTES # (AUTO) 0.5 (1.0-3.2); LYMPHOCYTES % 7.6 % (18.0-39.1); MEAN CORPUSCULAR HEMOGLOBIN 31.1 pg (28-32); MEAN CORPUSCULAR HGB CONC 32.3 g/dL (31-35); MEAN CORPUSCULAR VOLUME 96.4 fL (81-99); MONOCYTES # (AUTO) 0.1 (0.2-0.8); MONOCYTES % 2.1 % (4.4-11.3); NEUTROPHILS # (AUTO) 6.1 (2.1-6.9); NEUTROPHILS % 89.7 % (38.7-80.0); PLATELET COUNT 269 x10e3/uL (140-360); RED BLOOD COUNT 4.18 x10e6/uL (4.3-5.7); RED CELL DISTRIBUTION WIDTH 13.9 % (11.7-14.4)
[2017-12-24] MEDS ORDERED: AMIODARONE 900MG 500 ML IV ONE (00:30)
[2017-12-24 00:39] LABS: ABG PH 7.01 (7.31-7.41)
[2017-12-24 00:40] LABS: ABG HCO3 17 mmol/L (23-28); ABG PCO2 66 mmHg (41-51); ABG PO2 72 mmHg (80-105)
[2017-12-24 00:48] LABS: ALANINE AMINOTRANSFERASE 18 IU/L (0-55); ALBUMIN 2.2 g/dL (3.5-5.0); ALBUMIN/GLOBULIN RATIO 0.9 (0.8-2.0); ALKALINE PHOSPHATASE 53 IU/L (40-150); ANION GAP 15.8 mmol/L (8-16); BLOOD UREA NITROGEN 15 mg/dL (7-26); BUN/CREATININE RATIO 19 (6-25); CALCIUM 7.4 mg/dL (8.4-10.2); CARBON DIOXIDE 15 mmol/L (22-29); CHLORIDE 107 mmol/L (98-107); CREATINE KINASE 60 IU/L (30-200); CREATININE, SERUM 0.79 mg/dL (0.72-1.25); EST GLOMERULAR FILTRATION RATE > 60 ML/MIN (60-); GLUCOSE 192 mg/dL (74-118); MAGNESIUM 1.4 MG/DL (1.3-2.1); POTASSIUM 3.8 mmol/L (3.5-5.1); SODIUM 134 mmol/L (136-145)
[2017-12-24] MEDS ORDERED: VASOPRESSIN 100 UNIT in DEXTROSE 5% 100ML 100 ML IV STA (01:48)
[2017-12-24] MEDS ORDERED: VASOPRESSIN INJ 20 UNIT/ML VIAL ONE (01:52)
[2017-12-24] MEDS ORDERED: DEXTROSE 5% 100ML 100 ML IV ONE (01:53)
[2017-12-24 02:05] LABS: BAND NEUTROPHILS % (MANUAL) 22 %; EOSINOPHILS % (MANUAL) 1 % (0-7); LYMPHOCYTES % (MANUAL) 11 % (19-48); MONOCYTES % (MANUAL) 1 % (3.4-9.0); MYELOCYTES % (MANUAL) 1 % (0-0); NEUTROPHILS % (MANUAL) 62 % (40-74); PLATELET ESTIMATE ADEQUATE; PLATELET MORPHOLOGY COMMENT NORMAL; RBC MORPHOLOGY COMMENT NORMAL
[2017-12-24] MEDS ORDERED: MIDAZOLAM HCL 5 MG/ML VIAL ONE (02:30)
[2017-12-24] MEDS ORDERED: SODIUM CHLORIDE 0.9% 50ML 50 ML ONE ×2 (02:30→07:13)
[2017-12-24] MEDS ORDERED: SODIUM BICARBONATE 8.4% INJ 50 ML SYR IV STA (03:00)
[2017-12-24] MEDS ORDERED: HYDROCORTISONE SOD SUCCINATE 100 MG VIAL IV ONE (03:00)
--- NOTE | 2017-12-24 03:30 | Diagnostic Imaging Report ---
EXAM: CHEST SINGLE (PORTABLE), AP 1 view INDICATION: Central line placement COMPARISON: AP view of the chest December 23, 2017 FINDINGS: LINES/TUBES: Interval placement of right subclavian line with tip at the expected location of the atriocaval junction. Interval placement of nasogastric tube with tip in expected location of the body of the stomach. The endotracheal tube terminates 2 cm above the sandeep. LUNGS: Persistent bilateral airspace opacities, right greater than left. PLEURA: No effusions or pneumothorax. HEART AND MEDIASTINUM: Normal size and contour. BONES AND SOFT TISSUES: Persistent dilated loops of small bowel. IMPRESSION: Interval placement of right subclavian central line. No pneumothorax. Interval placement of nasogastric tube with tip in expected location of the body of the stomach. Persistent findings of small bowel obstruction. Persistent bilateral consolidations. Signed by: Dr. Carolina Ibarra M.D. on 12/24/2017 2:45 AM
--- NOTE | 2017-12-24 03:39 | Diagnostic Imaging Report ---
EXAM: CT ABDOMEN AND PELVIS with IV CONTRAST DATE: 12/24/2017 12:12 AM Time stamp on Exam: 0259 hours INDICATION: Small bowel obstruction COMPARISON: None TECHNIQUE: The abdomen and pelvis were scanned using a multidetector helical scanner. Coronal and sagittal reformations were obtained. Dose modulation, iterative reconstruction, and/or weight based adjustment of the mA/kV was utilized to reduce the radiation dose to as low as reasonably achievable. Routine protocol performed. IV Contrast: 100 cc Isovue-370 Oral Contrast: None FINDINGS: LOWER THORAX: Bilateral centrilobular consolidation/ground glass opacities in the dependent portions of the lungs. Trace bilateral pleural effusions. LIVER: No masses BILIARY: The gallbladder is unremarkable. No ductal dilation. SPLEEN: Not visualized secondary to streak artifact from fundal barium. PANCREAS: Partially visualized, unremarkable ADRENALS: No nodules KIDNEYS: Symmetric perfusion. No enhancing masses. No hydronephrosis. GI TRACT: Barium from prior modified barium swallow is in the fundus of the stomach. The stomach is distended. The small bowel is dilated up to 3.7 cm with obstruction most likely in the lower mid abdomen. The terminal ileum is decompressed. Normal appearance of the colon. Fluid is seen in the partially visualized distal esophagus. VESSELS: Advanced atherosclerotic changes. PERITONEUM/RETROPERITONEUM: Small volume ascites. No free peritoneal air. 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 BLADDER: The majority of the bladder, which is decompressed by a Jones catheter is within a right inguinal hernia. SOFT TISSUES: There is a small bowel containing umbilical hernia, which does not appear to be the cause of the obstruction. There are few foci of air in the subcutaneous tissues of the anterior right abdomen, most consistent with injection site. BONES: No suspicious bone lesions. Grade 1 anterolisthesis of L4 with respect to L5. IMPRESSION: 1. Small bowel obstruction with the level of obstruction at the mid to distal ileum, most likely secondary to adhesions. The stomach is distended. The nasogastric tube terminates in the body of the stomach. 2. Findings in the dependent portions of the lung is most likely related to aspiration. 3. Trace bilateral pleural effusions and small volume ascites. 4. The majority of the bladder (which is decompressed) is within a right inguinal hernia. Signed by: Dr. Carolina Ibarra M.D. on 12/24/2017 3:36 AM
[2017-12-24] MEDS ORDERED: NOREPINEPHRINE 8 MG/D5W 250 ML 250 ML ONE ×2 (03:53→12:22)
[2017-12-24 05:04] LABS: BASOPHILS % 0.6 % (0.0-1.0); HEMATOCRIT 41.8 % (38.2-49.6); HEMOGLOBIN 13.5 g/dL (14.0-18.0); LYMPHOCYTES # (AUTO) 0.4 (1.0-3.2); LYMPHOCYTES % 23.5 % (18.0-39.1); MEAN CORPUSCULAR HEMOGLOBIN 31.5 pg (28-32); MEAN CORPUSCULAR HGB CONC 32.3 g/dL (31-35); MEAN CORPUSCULAR VOLUME 97.4 fL (81-99); MONOCYTES # (AUTO) 0.1 (0.2-0.8); MONOCYTES % 4.3 % (4.4-11.3); NEUTROPHILS # (AUTO) 1.2 (2.1-6.9); PLATELET COUNT 223 x10e3/uL (140-360); RED BLOOD COUNT 4.29 x10e6/uL (4.3-5.7)
[2017-12-24 05:30] LABS: ALANINE AMINOTRANSFERASE 22 IU/L (0-55); ALBUMIN 2.1 g/dL (3.5-5.0); ALBUMIN/GLOBULIN RATIO 0.9 (0.8-2.0); ALKALINE PHOSPHATASE 45 IU/L (40-150); ANION GAP 16.2 mmol/L (8-16); BLOOD UREA NITROGEN 17 mg/dL (7-26); BUN/CREATININE RATIO 20 (6-25); CALCIUM 7.8 mg/dL (8.4-10.2); CARBON DIOXIDE 15 mmol/L (22-29); CHLORIDE 107 mmol/L (98-107); CREATININE, SERUM 0.84 mg/dL (0.72-1.25); EST GLOMERULAR FILTRATION RATE > 60 ML/MIN (60-); GLUCOSE 150 mg/dL (74-118); POTASSIUM 4.2 mmol/L (3.5-5.1); SODIUM 134 mmol/L (136-145)
[2017-12-24] MEDS: METOPROLOL TARTRATE 50 MG TAB PO SCH ×2 (06:00→09:33)
[2017-12-24] MEDS: PIPER-TAZ 3.375 GM 50 ML IV SCH ×5 (06:51→23:12)
[2017-12-24] MEDS ORDERED: IOPAMIDOL 370 MG/ML 200 ML INFUS..BTL INJ ONE (07:13)
[2017-12-24] MEDS: INSULIN LISPRO 100 UNIT/1 ML 3ML VIAL SQ SCH (07:30)
[2017-12-24] MEDS: PHENYLEPHRINE 10MG/ML VIAL 40 MG in DEXTROSE 5% 250ML 250 ML IV SCH (07:45)
[2017-12-24] MEDS ORDERED: PHENYLEPHRINE 10MG/ML VIAL 40 MG in DEXTROSE 5% 250ML 250 ML IV SCH (07:45)
[2017-12-24] MEDS ORDERED: SODIUM CHLORIDE 0.9% 1000ML 2,000 ML ONE (08:17)
[2017-12-24] MEDS ORDERED: SODIUM CHLORIDE 0.9% 1000ML 1,000 ML IV SCH ×3 (08:30→09:30)
[2017-12-24] MEDS: APIXABAN 5 MG TABLET PO SCH ×2 (09:00→09:34)
[2017-12-24] MEDS ORDERED: SODIUM BICARBONATE 8.4% SYRING 150 ML in DEXTROSE 5% 1,000 ML IV SCH (09:00)
[2017-12-24 09:08] LABS: ABG PCO2 54 mmHg (41-51); ABG PH 7.05 (7.31-7.41); ABG PO2 78 mmHg (80-105)
[2017-12-24 09:09] LABS: ABG HCO3 15 mmol/L (23-28)
[2017-12-24] MEDS: PANTOPRAZOLE 40 MG 10ML VIAL IV SCH (09:32)
[2017-12-24] MEDS: SODIUM BICARBONATE 8.4% SYRING 150 ML in DEXTROSE 5% 1,000 ML IV SCH ×2 (10:45→22:50)
[2017-12-24] MEDS: ALBUTEROL/IPRATROPIUM 3 ML NEB NEB PRN (11:10)
[2017-12-24] MEDS: MIDAZOLAM HCL 25 MG in SODIUM CHLORIDE 0.9% 50ML 45 ML IV PRN (11:15)
[2017-12-24] MEDS: INSULIN REGULAR, HUMAN 100 UNIT/1 ML 3ML VIAL SQ SCH ×3 (11:22→23:09)
[2017-12-24] MEDS: HYDROCORTISONE SOD SUCCINATE 100 MG VIAL IV SCH ×3 (11:31→22:49)
[2017-12-24 12:07] LABS: BASOPHILS % 0.5 % (0.0-1.0); HEMATOCRIT 37.6 % (38.2-49.6); HEMOGLOBIN 12.2 g/dL (14.0-18.0); LYMPHOCYTES # (AUTO) 0.2 (1.0-3.2); LYMPHOCYTES % 6.3 % (18.0-39.1); MEAN CORPUSCULAR HEMOGLOBIN 31.4 pg (28-32); MEAN CORPUSCULAR HGB CONC 32.4 g/dL (31-35); MEAN CORPUSCULAR VOLUME 96.9 fL (81-99); MONOCYTES # (AUTO) 0.3 (0.2-0.8); MONOCYTES % 7.1 % (4.4-11.3); NEUTROPHILS # (AUTO) 3.3 (2.1-6.9); NEUTROPHILS % 85.8 % (38.7-80.0); PLATELET COUNT 196 x10e3/uL (140-360); RED BLOOD COUNT 3.88 x10e6/uL (4.3-5.7); RED CELL DISTRIBUTION WIDTH 13.9 % (11.7-14.4)
[2017-12-24 12:27] LABS: ANION GAP 15.6 mmol/L (8-16); BLOOD UREA NITROGEN 22 mg/dL (7-26); BUN/CREATININE RATIO 23 (6-25); CARBON DIOXIDE 16 mmol/L (22-29); CHLORIDE 109 mmol/L (98-107); CREATININE, SERUM 0.96 mg/dL (0.72-1.25); EST GLOMERULAR FILTRATION RATE > 60 ML/MIN (60-); GLUCOSE 193 mg/dL (74-118); POTASSIUM 3.6 mmol/L (3.5-5.1); SODIUM 137 mmol/L (136-145)
[2017-12-24 12:32] LABS: CALCIUM 6.8 mg/dL (8.4-10.2)
[2017-12-24] MEDS ORDERED: CALCIUM GLUCONATE 10% INJ 9.3 MEQ in SODIUM CHLORIDE 0.9% 100 ML 100 ML IV ONE (13:30)
[2017-12-24] MEDS ORDERED: CALCIUM CHLORIDE 9.3 MEQ in SODIUM CHLORIDE 0.9% 100 ML 100 ML IV SCH (13:45)
[2017-12-24] MEDS ORDERED: SUCCINYLCHOLINE CHLORIDE 20 MG/ML 10ML VIAL IV ONE (14:23)
[2017-12-24] MEDS ORDERED: ETOMIDATE 40 MG/ 20ML VIAL IV ONE (14:23)
[2017-12-24 14:38] LABS: ABG HCO3 17 mmol/L (23-28); ABG PCO2 49 mmHg (41-51); ABG PH 7.15 (7.31-7.41); ABG PO2 82 mmHg (80-105)
--- NOTE | 2017-12-24 15:55 | Diagnostic Imaging Report ---
Abdomen/KUB INDICATION: Obstruction COMPARISON: CT abdomen/pelvis 12/24/2017 at 0259 hours FINDINGS: Portable, supine image obtained at 1503 hours. The image is motion degraded. An enteric tube identified on CT is barely visible by x-ray. Surgical clips in the pelvis are stable. Bowel: Enteric contrast remains predominantly in the stomach. There is a small amount of enteric contrast in small bowel loops in the left hemiabdomen. Small bowel loops remain dilated to a diameter of 4 cm. No pneumatosis. Organomegaly: None. Free air: None. Lung bases: Poorly visualized Bones: Unremarkable IMPRESSION: No progression of enteric contrast from the stomach and persistent dilatation of the small bowel consistent with obstruction. No pneumoperitoneum. Signed by: Dr. Kaylee Salomon MD on 12/24/2017 3:51 PM
[2017-12-24] MEDS ORDERED: HEPARIN SOD (PORCINE) 5,000 UNIT/ML VIAL IV NR (17:45)
[2017-12-24] MEDS: FENTANYL CITRATE INJ 2,000 MCG in SODIUM CHLORIDE 0.9% 250ML 210 ML IV PRN (18:50)
[2017-12-24] MEDS: AZITHROMYCIN 500MG/NS 250 ML 250 ML IV SCH (20:00)
--- NOTE | 2017-12-24 20:34 | Progress Note ---
DATE: December 24, 2017 CARDIOLOGY PROGRESS NOTE SUBJECTIVE: Aspirated overnight in the setting of small bowel obstruction with acute respiratory failure and septic shock, now in ICU intubated on Levophed and Vasopressin. Eliquis and metoprolol have been placed on hold. OBJECTIVE VITAL SIGNS: Temperature 97.6, heart rate 80, respiratory rate 26 and blood pressure 105/64. GENERAL: Intubated, sedated. CHEST: With rales throughout and decreased breath sounds. CARDIOVASCULAR: Irregular rate and rhythm. Normal S1 and S2. No S3 or S4. ABDOMEN: Distended. EXTREMITIES: No edema. Warm distal extremities. On amiodarone drip. LABORATORY STUDIES: White blood cells 3.8. Hemoglobin 12.2. Platelets 196,000. ABGs 7.15, pCO2 of 49, pO2 of 82. Calcium 6.8. Sodium 137. Potassium 3.6. Chloride 109. Bicarbonate 16. BUN 22, creatinine 0.96, glucose 193. X-RAYS: Significant for pulmonary infiltrates bilaterally, pleural effusions bilaterally, small bowel obstruction. Central venous catheter in place and ET tube in place. MEDICATIONS: Reviewed. ASSESSMENT: 1. Acute respiratory failure, status post endotracheal intubation on ventilatory support. 2. Severe sepsis with septic shock. 3. Aspiration pneumonia. 4. Small bowel obstruction. 5. Paroxysmal atrial fibrillation. 6. Pulmonary embolism. 7. Dementia. PLAN: 1. Discontinue Eliquis for now and stop metoprolol. 2. Starting tomorrow initiate IV heparin drip. 3. Agree with ventilatory support and antibiotics under the direction of primary service. 4. Wean pressors for a MAP of 65 to 75. 5. Management of electrolyte derangement advised. 6. Overall guarded prognosis in critical state. Job#: [id number]
[2017-12-25] VITALS (85 sets, daily range): BP systolic 81–189; BP diastolic 46–80
[2017-12-25] MEDS: MIDAZOLAM HCL 25 MG in SODIUM CHLORIDE 0.9% 50ML 45 ML IV PRN (01:51)
[2017-12-25] MEDS: NOREPINEPHRINE INJ 4MG/4ML 8 MG in DEXTROSE 5% 250ML 242 ML IV SCH (01:51)
[2017-12-25] MEDS: PIPER-TAZ 3.375 GM 50 ML IV SCH ×3 (05:51→18:47)
[2017-12-25] MEDS: HYDROCORTISONE SOD SUCCINATE 100 MG VIAL IV SCH ×3 (05:52→21:47)
[2017-12-25 05:58] LABS: BASOPHILS # (AUTO) 0.1 (0.0-0.1); BASOPHILS % 0.6 % (0.0-1.0); HEMATOCRIT 34.8 % (38.2-49.6); HEMOGLOBIN 12.3 g/dL (14.0-18.0); LYMPHOCYTES # (AUTO) 0.5 (1.0-3.2); LYMPHOCYTES % 3.5 % (18.0-39.1); MEAN CORPUSCULAR HEMOGLOBIN 31.9 pg (28-32); MEAN CORPUSCULAR HGB CONC 35.3 g/dL (31-35); MEAN CORPUSCULAR VOLUME 90.4 fL (81-99); MONOCYTES # (AUTO) 0.5 (0.2-0.8); MONOCYTES % 3.4 % (4.4-11.3); NEUTROPHILS # (AUTO) 12.9 (2.1-6.9); NEUTROPHILS % 88.6 % (38.7-80.0); PLATELET COUNT 149 x10e3/uL (140-360); RED BLOOD COUNT 3.85 x10e6/uL (4.3-5.7); RED CELL DISTRIBUTION WIDTH 13.9 % (11.7-14.4)
[2017-12-25 06:16] LABS: ANION GAP 16.1 mmol/L (8-16); BLOOD UREA NITROGEN 23 mg/dL (7-26); BUN/CREATININE RATIO 22 (6-25); CALCIUM 7.8 mg/dL (8.4-10.2); CARBON DIOXIDE 21 mmol/L (22-29); CHLORIDE 100 mmol/L (98-107); CREATININE, SERUM 1.06 mg/dL (0.72-1.25); EST GLOMERULAR FILTRATION RATE > 60 ML/MIN (60-); GLUCOSE 250 mg/dL (74-118); POTASSIUM 3.1 mmol/L (3.5-5.1); SODIUM 134 mmol/L (136-145)
[2017-12-25] MEDS: INSULIN REGULAR, HUMAN 100 UNIT/1 ML 3ML VIAL SQ SCH ×3 (06:25→18:00)
[2017-12-25 07:14] LABS: BAND NEUTROPHILS % (MANUAL) 42 %; EOSINOPHILS % (MANUAL) 2 % (0-7); LYMPHOCYTES % (MANUAL) 8 % (19-48); METAMYELOCYTES % (MANUAL) 1 % (0-0); MONOCYTES % (MANUAL) 8 % (3.4-9.0); MYELOCYTES % (MANUAL) 2 % (0-0); NEUTROPHILS % (MANUAL) 34 % (40-74)
[2017-12-25 07:16] LABS: ANISOCYTOSIS MODERATE; HYPOCHROMASIA SLIGHT; PLATELET ESTIMATE SLIGHTLY DECREASED; POIKILOCYTOSIS SLIGHT; RBC MORPHOLOGY COMMENT ABNORMAL
[2017-12-25 07:17] LABS: PLATELET MORPHOLOGY COMMENT FEW LARGE
[2017-12-25] MEDS: PHENYLEPHRINE 10MG/ML VIAL 40 MG in DEXTROSE 5% 250ML 250 ML IV SCH (07:45)
--- NOTE | 2017-12-25 09:22 | Diagnostic Imaging Report ---
PROCEDURE: A single AP view of the chest. COMPARISON: Chest radiograph 12/24/17. INDICATIONS: INTUBATED FINDINGS: Lines/tubes: Endotracheal tube terminates 2.8 cm above the sandeep. Enteric tube courses into the stomach, the tip is not seen. Right subclavian central line terminates at the cavoatrial junction. Overlying EKG leads. Lungs: Bilateral multifocal consolidations, right greater than left, with increasing consolidations in the upper lungs. Pleura: Possible small bilateral pleural effusion. No evidence of pneumothorax. Heart and mediastinum: The cardiomediastinal silhouette is unchanged. Bones: No acute bony abnormality. Upper abdomen: Contrast is noted in the stomach. IMPRESSION: Lines and tubes as above. No evidence of pneumothorax. Bilateral consolidation, increasing in the upper lungs, likely reflecting multifocal pneumonia. Dictated by: LYSSA MANN M.D. on 12/25/2017 at 9:28 Electronically approved by: LYSSA MANN M.D. on 12/25/2017 at 9:28
[2017-12-25] MEDS ORDERED: HEPARIN SOD (PORCINE) 5,000 UNIT/ML VIAL IV ONE (09:30)
[2017-12-25] MEDS: PANTOPRAZOLE 40 MG 10ML VIAL IV SCH (09:45)
[2017-12-25 09:51] LABS: ABG PCO2 31 mmHg (41-51); ABG PH 7.49 (7.31-7.41); ABG PO2 88 mmHg (80-105)
[2017-12-25 09:52] LABS: ABG HCO3 23 mmol/L (23-28)
--- NOTE | 2017-12-25 09:55 | Progress Note ---
DATE: December 25, 2017 CARDIOLOGY PROGRESS NOTE SUBJECTIVE: Intubated and sedated. OBJECTIVE VITAL SIGNS: Temperature 98.7, heart rate 93, respiratory rate in the 20s to 40s on vent support. Blood pressure 109/59. O2 sat 94%. Telemetry: Atrial fibrillation with rate in the 100s. Still on Levophed. However, vasopressin has been turned off. GENERAL: Intubated, sedated. CHEST: Coarse breath sounds and scattered rales. CARDIOVASCULAR: Irregularly irregular rate and rhythm. Normal S1 and S2. ABDOMEN: Distended with significant brown, dark discolorated fluid coming out from the NG tube. EXTREMITIES: No edema. CARDIOVASCULAR MEDICATIONS: Reviewed. On hydrocortisone 50 mg every 8 hours IV, Zosyn, Levophed, azithromycin, Protonix. STUDIES: White blood cells 14.5, hemoglobin 12.3, platelets 149. Sodium 134, potassium 3.1, chloride 100, bicarbonate 21, BUN 23, creatinine 1.06, glucose 215, calcium 7.8. ASSESSMENT 1. Pulmonary embolism. 2. Atrial fibrillation. 3. Acute respiratory failure, status post endotracheal intubation in the setting of aspiration pneumonia. 4. Small-bowel obstruction. 5. Dementia. RECOMMENDATIONS 1. Initiate IV heparin. 2. Wean vent support as per pulmonary/critical care. 3. Wean Levophed as tolerated to maintain a MAP of 65 to 75. 4. Critical state, guarded prognosis. Job#: [id number]
[2017-12-25 10:01] LABS: INR 2.43; PROTHROMBIN TIME 24.8 seconds (11.9-14.5)
[2017-12-25 10:02] LABS: PARTIAL THROMBOPLASTIN TIME 48.3 seconds (23.8-35.5)
[2017-12-25] MEDS ORDERED: HEPARIN 25,000U/0.45% NS 250ML 250 ML ONE (10:42)
[2017-12-25] MEDS: HEPARIN 25,000U/0.45% NS 250ML 1,100 UNIT in SODIUM CHLORIDE 0.9% 250ML 0 ML IV SCH (10:44)
[2017-12-25] MEDS: KCL 20MEQ/.9 SOD CHL 1,000 ML IV SCH (10:49)
[2017-12-25] MEDS: VASOPRESSIN 100 UNIT in DEXTROSE 5% 100ML 100 ML IV PRN (14:26)
[2017-12-25 17:11] LABS: ANION GAP 12.8 mmol/L (8-16); BLOOD UREA NITROGEN 21 mg/dL (7-26); BUN/CREATININE RATIO 27 (6-25); CALCIUM 7.7 mg/dL (8.4-10.2); CARBON DIOXIDE 22 mmol/L (22-29); CHLORIDE 102 mmol/L (98-107); CREATININE, SERUM 0.78 mg/dL (0.72-1.25); EST GLOMERULAR FILTRATION RATE > 60 ML/MIN (60-); GLUCOSE 95 mg/dL (74-118); SODIUM 134 mmol/L (136-145)
[2017-12-25 17:15] LABS: MAGNESIUM 0.9 MG/DL (1.3-2.1); POTASSIUM 2.8 mmol/L (3.5-5.1)
[2017-12-25] MEDS ORDERED: MAGNESIUM SULFATE 2GM/50ML 100 ML IV ONE (17:30)
[2017-12-25] MEDS ORDERED: POTASSIUM CHLORIDE 20MEQ/100ML 300 ML IV ONE (17:30)
[2017-12-25] MEDS ORDERED: MAGNESIUM SULF 1GRAM/DEXTROSE 100 ML IV ONE (18:14)
[2017-12-25 21:13] LABS: ABG HCO3 23 mmol/L (23-28); ABG PCO2 32 mmHg (41-51); ABG PH 7.46 (7.31-7.41); ABG PO2 66 mmHg (80-105)
[2017-12-25] MEDS: AZITHROMYCIN 500MG/NS 250 ML 250 ML IV SCH (21:47)
[2017-12-26] VITALS (90 sets, daily range): BP systolic 92–155; BP diastolic 55–95
[2017-12-26] MEDS: PIPER-TAZ 3.375 GM 50 ML IV SCH ×4 (00:54→18:00)
[2017-12-26] MEDS: KCL 20MEQ/.9 SOD CHL 1,000 ML IV SCH ×2 (00:54→20:34)
[2017-12-26 04:45] LABS: BASOPHILS # (AUTO) 0.1 (0.0-0.1); BASOPHILS % 0.5 % (0.0-1.0); EOSINOPHILS % 0.1 % (0.0-6.0); HEMATOCRIT 28.6 % (38.2-49.6); HEMOGLOBIN 9.8 g/dL (14.0-18.0); LYMPHOCYTES # (AUTO) 0.3 (1.0-3.2); LYMPHOCYTES % 2.2 % (18.0-39.1); MEAN CORPUSCULAR HEMOGLOBIN 30.7 pg (28-32); MEAN CORPUSCULAR HGB CONC 34.3 g/dL (31-35); MEAN CORPUSCULAR VOLUME 89.7 fL (81-99); MONOCYTES # (AUTO) 0.4 (0.2-0.8); MONOCYTES % 3.3 % (4.4-11.3); NEUTROPHILS # (AUTO) 11.4 (2.1-6.9); NEUTROPHILS % 88.8 % (38.7-80.0); PLATELET COUNT 131 x10e3/uL (140-360); RED BLOOD COUNT 3.19 x10e6/uL (4.3-5.7); RED CELL DISTRIBUTION WIDTH 13.9 % (11.7-14.4)
[2017-12-26 05:12] LABS: ALANINE AMINOTRANSFERASE 231 IU/L (0-55); ALBUMIN 1.8 g/dL (3.5-5.0); ALBUMIN/GLOBULIN RATIO 0.8 (0.8-2.0); ALKALINE PHOSPHATASE 53 IU/L (40-150); ANION GAP 14.3 mmol/L (8-16); BLOOD UREA NITROGEN 19 mg/dL (7-26); BUN/CREATININE RATIO 28 (6-25); CARBON DIOXIDE 22 mmol/L (22-29); CHLORIDE 102 mmol/L (98-107); CREATININE, SERUM 0.69 mg/dL (0.72-1.25); EST GLOMERULAR FILTRATION RATE > 60 ML/MIN (60-); GLUCOSE 114 mg/dL (74-118); POTASSIUM 3.3 mmol/L (3.5-5.1); SODIUM 135 mmol/L (136-145)
[2017-12-26] MEDS: INSULIN REGULAR, HUMAN 100 UNIT/1 ML 3ML VIAL SQ SCH ×4 (05:19→18:00)
[2017-12-26 05:21] LABS: MAGNESIUM 1.8 MG/DL (1.3-2.1); PHOSPHORUS 2.4 MG/DL (2.3-4.7)
[2017-12-26] MEDS: HYDROCORTISONE SOD SUCCINATE 100 MG VIAL IV SCH ×3 (05:40→22:53)
[2017-12-26] MEDS: HEPARIN 25,000U/0.45% NS 250ML 1,100 UNIT in SODIUM CHLORIDE 0.9% 250ML 0 ML IV SCH (06:30)
--- NOTE | 2017-12-26 06:50 | Diagnostic Imaging Report ---
EXAM: CHEST SINGLE (PORTABLE), AP 1 view INDICATION: Intubated COMPARISON: AP view of the chest December 25, 2017 FINDINGS: LINES/TUBES: Stable position endotracheal tube, nasal/orogastric tube and right subclavian line. LUNGS: Stable bilateral airspace opacities. PLEURA: Small bilateral pleural effusions. HEART AND MEDIASTINUM: Normal size and contour. BONES AND SOFT TISSUES: No acute findings. IMPRESSION: No interval change. Signed by: Dr. Carolina Ibarra M.D. on 12/26/2017 6:46 AM
[2017-12-26 06:55] LABS: BAND NEUTROPHILS % (MANUAL) 8 %; LYMPHOCYTES % (MANUAL) 6 % (19-48); METAMYELOCYTES % (MANUAL) 1 % (0-0); MONOCYTES % (MANUAL) 2 % (3.4-9.0); MYELOCYTES % (MANUAL) 1 % (0-0); NEUTROPHILS % (MANUAL) 82 % (40-74); PLATELET ESTIMATE ADEQUATE; PLATELET MORPHOLOGY COMMENT NORMAL
[2017-12-26] MEDS: PHENYLEPHRINE 10MG/ML VIAL 40 MG in DEXTROSE 5% 250ML 250 ML IV SCH (07:45)
[2017-12-26] MEDS: VASOPRESSIN 100 UNIT in DEXTROSE 5% 100ML 100 ML IV PRN (09:45)
[2017-12-26] MEDS: PANTOPRAZOLE 40 MG 10ML VIAL IV SCH ×2 (09:55→21:12)
[2017-12-26] MEDS ORDERED: MAGNESIUM SULFATE 2GM/50ML 50 ML IV ONE (11:30)
[2017-12-26] MEDS ORDERED: POTASSIUM CHLORIDE 20MEQ/100ML 200 ML IV ONE (11:30)
[2017-12-26 12:18] LABS: OCCULT BLOOD STOOL POSITIVE (NEGATIVE)
[2017-12-26] MEDS ORDERED: AMIODARONE HCL 900 MG in DEXTROSE 5 % 500ML BOTTLE 482 ML IV SCH ×2 (12:30→12:45)
--- NOTE | 2017-12-26 12:51 | Progress Note ---
DATE: December 26, 2017 CARDIOLOGY PROGRESS NOTE SUBJECTIVE: Remains intubated on sedation. IV heparin and amiodarone in place with heparin being adjusted for supratherapeutic PTT. PHYSICAL EXAMINATION VITALS: Temperature 98.1, heart rate 77-100 on telemetry and atrial fibrillation, respiratory rate 22, blood pressure 110/61. GENERAL: Intubated and sedated. CHEST: Coarse breath sounds. CARDIOVASCULAR: Irregularly irregular rate and rhythm. Normal S1 and S2. ABDOMEN: Soft. EXTREMITIES: Trace edema. CARDIOVASCULAR MEDICATIONS: Reviewed. On heparin and amiodarone IV. STUDIES: Reviewed. Fecal occult blood test ordered and pending results. Chest x-ray unchanged from previous. Creatinine 0.69. AST 101, ALT 231, glucose 123, bicarbonate 22. Hemoglobin decreased from 12.3 to 9.8, platelets 131,000, and white blood cells 12.7. PTT last was 103. ASSESSMENT 1. Acute respiratory failure requiring ventilatory support. 2. Aspiration pneumonia. 3. Small-bowel obstruction. 4. Pulmonary embolism. 5. Atrial fibrillation, paroxysmal. 6. Advanced dementia. 7. Abnormal liver function tests. RECOMMENDATIONS: Given anemia, await fecal occult blood test. Discussed with nurse. Holding heparin until occult blood test confirmed negative given drop in hemoglobin from 12.3 to 9.8. This might possibly be dilutional. However, I would like to exclude an acute significant bleeding. Monitor H and H. Continue amiodarone at 0.25 mg per minute IV for now for adequate rate control. Continue supportive care. Overall, guarded prognosis. Antibiotics as per primary service expertise. Job#: [id number] [facility]
[2017-12-26 13:30] LABS: C DIFFICILE TOXIN A&B AMP PROB NEGATIVE (NEGATIVE)
--- NOTE | 2017-12-26 15:05 | Diagnostic Imaging Report ---
EXAM: Abdomen 1 Views INDICATION: \S\sbo \S\Y COMPARISON: CT abdomen and pelvis 12/24/2017 on KUB 12/24/2017 FINDINGS: TUBES AND LINES: Distal NG-OG tube overlying the gastric body, which is partially filled with contrast. Moderate of stool in the colon. Diffuse posterior bowel with gas. No renal calculi. No abnormal soft tissue masses. Moderate degenerative changes in the lumbar spine and pelvis. Diffuse vascular calcifications. IMPRESSION: 1. NG/OG tube within the gastric body. 2. Diffuse bowel CT of the bowel gas may be consistent with persistent small bowel obstruction. Signed by: Dr. Sparkle Pedersen M.D. on 12/26/2017 3:01 PM
[2017-12-26] MEDS: AMIODARONE 900MG 500 ML IV SCH (18:00)
[2017-12-26] MEDS: FENTANYL CITRATE INJ 2,000 MCG in SODIUM CHLORIDE 0.9% 250ML 210 ML IV PRN (22:49)
[2017-12-26] MEDS: NOREPINEPHRINE INJ 4MG/4ML 8 MG in DEXTROSE 5% 250ML 242 ML IV SCH (22:53)
[2017-12-27] VITALS (88 sets, daily range): BP systolic 79–153; BP diastolic 55–95
[2017-12-27] MEDS: PIPER-TAZ 3.375 GM 50 ML IV SCH ×4 (00:01→18:30)
[2017-12-27] MEDS: KCL 20MEQ/.9 SOD CHL 1,000 ML IV SCH ×2 (02:30→15:50)
[2017-12-27 04:47] LABS: BASOPHILS # (AUTO) 0.1 (0.0-0.1); BASOPHILS % 0.3 % (0.0-1.0); HEMATOCRIT 27.2 % (38.2-49.6); HEMOGLOBIN 9.6 g/dL (14.0-18.0); LYMPHOCYTES # (AUTO) 0.3 (1.0-3.2); LYMPHOCYTES % 1.5 % (18.0-39.1); MEAN CORPUSCULAR HEMOGLOBIN 31.5 pg (28-32); MEAN CORPUSCULAR HGB CONC 35.3 g/dL (31-35); MEAN CORPUSCULAR VOLUME 89.2 fL (81-99); MONOCYTES # (AUTO) 0.6 (0.2-0.8); MONOCYTES % 2.6 % (4.4-11.3); NEUTROPHILS # (AUTO) 19.9 (2.1-6.9); NEUTROPHILS % 95.1 % (38.7-80.0); PLATELET COUNT 124 x10e3/uL (140-360); RED BLOOD COUNT 3.05 x10e6/uL (4.3-5.7); RED CELL DISTRIBUTION WIDTH 14.6 % (11.7-14.4)
[2017-12-27 05:12] LABS: ALANINE AMINOTRANSFERASE 161 IU/L (0-55); ALBUMIN 1.9 g/dL (3.5-5.0); ALBUMIN/GLOBULIN RATIO 0.6 (0.8-2.0); ALKALINE PHOSPHATASE 69 IU/L (40-150); ANION GAP 15.6 mmol/L (8-16); BLOOD UREA NITROGEN 11 mg/dL (7-26); BUN/CREATININE RATIO 19 (6-25); CALCIUM 8.1 mg/dL (8.4-10.2); CARBON DIOXIDE 22 mmol/L (22-29); CHLORIDE 96 mmol/L (98-107); CREATININE, SERUM 0.57 mg/dL (0.72-1.25); EST GLOMERULAR FILTRATION RATE > 60 ML/MIN (60-); GLUCOSE 138 mg/dL (74-118); SODIUM 131 mmol/L (136-145)
[2017-12-27 05:16] LABS: POTASSIUM 2.6 mmol/L (3.5-5.1)
[2017-12-27] MEDS: INSULIN REGULAR, HUMAN 100 UNIT/1 ML 3ML VIAL SQ SCH ×4 (05:49→18:00)
[2017-12-27] MEDS: HYDROCORTISONE SOD SUCCINATE 100 MG VIAL IV SCH ×3 (05:53→22:02)
[2017-12-27] MEDS: PHENYLEPHRINE 10MG/ML VIAL 40 MG in DEXTROSE 5% 250ML 250 ML IV SCH (05:54)
[2017-12-27] MEDS ORDERED: POTASSIUM CHLORIDE 20MEQ/100ML 200 ML IV ONE ×2 (06:15→16:30)
--- NOTE | 2017-12-27 06:56 | Diagnostic Imaging Report ---
EXAM: ABDOMEN-1VIEW (KUB), supine INDICATION: ileus, small bowel obstruction COMPARISON: None FINDINGS: LINES/TUBES: Nasogastric tube in the body of the stomach. BOWEL PATTERN: General paucity of bowel gas. Contrast in the fundus of the stomach SOFT TISSUES: No abnormal calcifications. LUNG BASES: Right lower lobe atelectasis. BONES: No acute findings. IMPRESSION: General paucity of bowel gas. Small bowel obstruction with fluid-filled loops is not excluded. Signed by: Dr. Carolina Ibarra M.D. on 12/27/2017 6:53 AM
--- NOTE | 2017-12-27 06:57 | Diagnostic Imaging Report ---
EXAM: CHEST SINGLE (PORTABLE), AP 1 view INDICATION: Intubated COMPARISON: AP view of the chest December 26, 2017 FINDINGS: LINES/TUBES: Stable right approach PICC, endotracheal tube and nasogastric tube. LUNGS: Persistent bilateral airspace opacities PLEURA: Small bilateral pleural effusions HEART AND MEDIASTINUM: Normal size and contour. BONES AND SOFT TISSUES: No acute findings. IMPRESSION: Stable exam Signed by: Dr. Carolina Ibarra M.D. on 12/27/2017 6:54 AM
[2017-12-27 07:56] LABS: BAND NEUTROPHILS % (MANUAL) 17 %; MONOCYTES % (MANUAL) 2 % (3.4-9.0); NEUTROPHILS % (MANUAL) 81 % (40-74); PLATELET ESTIMATE ADEQUATE; PLATELET MORPHOLOGY COMMENT NORMAL; RBC MORPHOLOGY COMMENT NORMAL
[2017-12-27] MEDS: PANTOPRAZOLE 40 MG 10ML VIAL IV SCH ×2 (09:00→21:36)
--- NOTE | 2017-12-27 09:21 | Consultation ---
DATE OF CONSULTATION: December 27, 2017 SURGERY CONSULTATION REFERRING PHYSICIAN: Dr. Manish Santos. HISTORY OF PRESENT ILLNESS: Patient is an 82-year-old male with multiple medical problems, who was admitted to the hospital with cough and developed respiratory failure. He also had a pulmonary embolus. While he was being evaluated, he has been found to have findings suggestive of a small-bowel obstruction. Patient is on a ventilator now. He is alert, does not complain of any abdominal pain. Most recent x-rays, CT scan suggests small-bowel obstruction. However, plain x-rays did not reveal any air in the GI tract. He has had minimal output from his NG tube over the last 24 hours, only 50 mL, and 2 bowel movements yesterday. 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 He is bedbound since his last cerebrovascular accident. PREVIOUS SURGERY: A hernia repair many years ago. ALLERGIES: ASPIRIN. MEDICATIONS AT HOME: Metformin, ramipril and Lipitor. CURRENT MEDICATIONS: Listed in the chart. FAMILY HISTORY: Significant for diabetes and cancer. SOCIAL HISTORY: The patient lives with his family. He does not smoke cigarettes or drink alcohol. REVIEW OF SYSTEMS: Cannot be obtained. PHYSICAL EXAMINATION GENERAL: The patient is in ICU on the ventilator. Alert. VITAL SIGNS: With tachycardia. Heart rate 124. The blood pressure is normal. O2 saturation is 100%. HEENT: Reveals no scleral icterus. NECK: Has no masses. LUNGS: Decreased breath sounds at the bases bilaterally. CARDIAC: Irregular rhythm. ABDOMEN: Soft. There is no distension, no tenderness, no mass. No signs of peritonitis. EXTREMITIES: Have no edema. LAB TESTS: The white blood cell count today is 21,000. This has come up from 12.8 yesterday and previously had been as low as 1.6. Hemoglobin and hematocrit 9.6 and 27 have been stable. Chemistries: The potassium is 2.6. ASSESSMENT: An 82-year-old male with multiple medical problems, whose findings suggest a small-bowel obstruction, but this now seems to be resolving. He is having bowel movements. There is a minimal output from the NG tube, and the abdomen is benign on exam. At this point, I would recommend continue supportive care has been ordered. There are no findings that would warrant surgical intervention at this time. No signs of acute surgical abdomen. Once the patient is extubated, plan to assess further, but at this point I think that the patient's GI tract either ileus or small-bowel obstruction has resolved. Thank you for asking me to see Mr. Ta. Job#: [id number] EV
[2017-12-27] MEDS ORDERED: MAGNESIUM SULF 1GRAM/DEXTROSE 100 ML IV ONE ×2 (11:16→11:30)
--- NOTE | 2017-12-27 11:31 | Consultation ---
DATE OF CONSULTATION: December 27, 2017 GASTROENTEROLOGY CONSULTATION CHIEF COMPLAINT: GI bleed. HISTORY OF PRESENT ILLNESS: A very pleasant 82-year-old man with history of CVA, dementia, hypertension, admitted with pulmonary emboli, consult for hematemesis. Patient had coffee-ground emesis and dark drainage from the NG tube. He had melena once. Now he has dark green stool. Hemoglobin is stable. He was on a heparin drip that has stopped. Now he is on Lovenox. He is on PPIs IV. He is intubated. PAST MEDICAL HISTORY: Diabetes, hypertension, CVA, pulmonary emboli. MEDICATIONS: See list. SOCIAL: Patient lives with daughter. He has no toxic habits. He is retired. FAMILY HISTORY: Diabetes, cancer. REVIEW OF SYSTEMS: Patient is intubated, cannot give a history. PHYSICAL EXAMINATION VITAL SIGNS: Blood pressure 140/80, pulse 70, temperature 98. GENERAL: A well-nourished elderly man. He is critical. HEENT: There is no pallor. HEART: Regular rate. LUNGS: Scattered rales. ABDOMEN: Soft. ASSESSMENT AND PLAN: Gastrointestinal bleed. At the present time appears to be controlled. No evidence of active bleeding. Patient on Lovenox. Continue this. Continue PPI. Patient critical. At the present time no plans for an endoscopy. If active bleeding occurs, we will have to stop Lovenox and consider emergent EGD. Job#: [id number] EV
[2017-12-27 11:47] LABS: ABG HCO3 23 mmol/L (23-28); ABG PCO2 32 mmHg (41-51); ABG PH 7.46 (7.31-7.41); ABG PO2 58 mmHg (80-105)
[2017-12-27] MEDS ORDERED: METOPROLOL TARTRATE INJ 1 MG/ML VIAL ONE (12:08)
[2017-12-27] MEDS: METOPROLOL TARTRATE INJ 1 MG/ML VIAL IV SCH ×2 (12:15→21:36)
[2017-12-27] MEDS: POTASSIUM CHLORIDE 20MEQ/100ML 100 ML IV SCH ×3 (13:00→20:17)
[2017-12-27] MEDS ORDERED: METOPROLOL TARTRATE INJ 1 MG/ML VIAL IV SCH (14:00)
--- NOTE | 2017-12-27 15:02 | Progress Note ---
DATE: December 27, 2017 CARDIOLOGY PROGRESS NOTE SUBJECTIVE: Intubated, on sedation holiday. OBJECTIVE VITAL SIGNS: Temperature 98.4, heart rate 123, AFib on telemetry, blood pressure 132/90, O2 sat 100%, respiratory rate 25. GENERAL: Intubated. Seems in no acute distress. CHEST: With decreased breath sounds. CARDIOVASCULAR: Irregularly irregular rate and rhythm. Normal S1 and S2. ABDOMEN: Soft. EXTREMITIES: Trace edema. HEENT: NG tube in place. ET tube in place. On vent support. CARDIOVASCULAR MEDICATIONS: Reviewed. He is on albuterol nebs, Zosyn antibiotic, hydrocortisone succinate 50 mg every 8 hours, on amiodarone IV drip 0.25 mg per minute, and Lovenox was initiated at 60 mg IV q.12 h. and Protonix 40 mg IV q.12 h. STUDIES: Reviewed. The potassium was 2.6, being repleted with a total of 100 mEq of KCl over the course of the day today slowly. Creatinine is 0.57. His glucose 138. His hemoglobin of 9.6, stable, and INR was 2.43. AST is 48, ALT is elevated at 161. ASSESSMENT 1. Acute respiratory failure in the setting of aspiration pneumonia. 2. Aspiration pneumonia. 3. Septic shock, improved. 4. Pulmonary embolism. 5. Advanced dementia. 6. Atrial fibrillation with rapid ventricular response. RECOMMENDATIONS: Blood pressure improving today. Will initiate metoprolol 2.5 mg IV every 8 hours, hold for systolic blood pressure less than 100. Continue rest of cardiovascular medications. Monitor H\T\H closely. Appreciate all the consulting services' input. Overall guarded prognosis. Job#: [id number] EV
[2017-12-27] MEDS: ENOXAPARIN SOD INJ 60 MG/0.6 ML SYR SC SCH (21:36)
[2017-12-28] VITALS (77 sets, daily range): BP systolic 79–136; BP diastolic 54–89
[2017-12-28] MEDS: PIPER-TAZ 3.375 GM 50 ML IV SCH ×2 (00:35→05:57)
[2017-12-28] MEDS: KCL 20MEQ/.9 SOD CHL 1,000 ML IV SCH ×2 (01:20→19:31)
[2017-12-28 04:53] LABS: BASOPHILS # (AUTO) 0.1 (0.0-0.1); BASOPHILS % 0.4 % (0.0-1.0); HEMOGLOBIN 10.5 g/dL (14.0-18.0); LYMPHOCYTES # (AUTO) 0.3 (1.0-3.2); LYMPHOCYTES % 1.5 % (18.0-39.1); MEAN CORPUSCULAR HEMOGLOBIN 31.2 pg (28-32); MONOCYTES # (AUTO) 0.6 (0.2-0.8); MONOCYTES % 2.7 % (4.4-11.3); NEUTROPHILS # (AUTO) 19.7 (2.1-6.9); NEUTROPHILS % 93.7 % (38.7-80.0); PLATELET COUNT 124 x10e3/uL (140-360); RED BLOOD COUNT 3.37 x10e6/uL (4.3-5.7); RED CELL DISTRIBUTION WIDTH 14.6 % (11.7-14.4)
[2017-12-28] MEDS: METOPROLOL TARTRATE INJ 1 MG/ML VIAL IV SCH ×3 (05:00→20:46)
[2017-12-28 05:16] LABS: ALANINE AMINOTRANSFERASE 92 IU/L (0-55); ALBUMIN 1.8 g/dL (3.5-5.0); ALBUMIN/GLOBULIN RATIO 0.6 (0.8-2.0); ALKALINE PHOSPHATASE 87 IU/L (40-150); ANION GAP 14.6 mmol/L (8-16); BLOOD UREA NITROGEN 9 mg/dL (7-26); BUN/CREATININE RATIO 18 (6-25); CALCIUM 8.1 mg/dL (8.4-10.2); CARBON DIOXIDE 21 mmol/L (22-29); CHLORIDE 101 mmol/L (98-107); CREATININE, SERUM 0.49 mg/dL (0.72-1.25); EST GLOMERULAR FILTRATION RATE > 60 ML/MIN (60-); GLUCOSE 111 mg/dL (74-118); LIPASE 51 U/L (8-78); MAGNESIUM 1.4 MG/DL (1.3-2.1); SODIUM 134 mmol/L (136-145)
[2017-12-28 05:23] LABS: POTASSIUM 2.6 mmol/L (3.5-5.1)
[2017-12-28] MEDS: HYDROCORTISONE SOD SUCCINATE 100 MG VIAL IV SCH ×3 (05:57→21:36)
[2017-12-28] MEDS: INSULIN REGULAR, HUMAN 100 UNIT/1 ML 3ML VIAL SQ SCH ×4 (06:00→18:00)
[2017-12-28 06:58] LABS: ANISOCYTOSIS SLIGHT; LYMPHOCYTES % (MANUAL) 2 % (19-48); MONOCYTES % (MANUAL) 1 % (3.4-9.0); MYELOCYTES % (MANUAL) 1 % (0-0); NEUTROPHILS % (MANUAL) 96 % (40-74)
[2017-12-28 06:59] LABS: ACANTHOCYTES FEW; HYPOCHROMASIA SLIGHT; PLATELET ESTIMATE SLIGHTLY DECREASED; PLATELET MORPHOLOGY COMMENT FEW LARGE; RBC MORPHOLOGY COMMENT NORMAL
[2017-12-28] MEDS ORDERED: POTASSIUM CHLORIDE 20MEQ/100ML 200 ML IV ONE ×4 (07:00→16:00)
[2017-12-28] MEDS: ALBUTEROL/IPRATROPIUM 3 ML NEB NEB PRN (07:26)
--- NOTE | 2017-12-28 08:00 | Diagnostic Imaging Report ---
EXAM: CHEST SINGLE (PORTABLE), AP 1 view INDICATION: Shortness of breath COMPARISON: AP view of the chest December 27, 2017 FINDINGS: LINES/TUBES: Stable right subclavian central line, endotracheal tube and nasal/orogastric tube. LUNGS: Stable bilateral airspace opacities. PLEURA: Small bilateral pleural effusions HEART AND MEDIASTINUM: Normal size and contour. BONES AND SOFT TISSUES: No acute findings. IMPRESSION: No interval change. Signed by: Dr. Carolina Ibarra M.D. on 12/28/2017 6:50 AM
[2017-12-28] MEDS: PANTOPRAZOLE 40 MG 10ML VIAL IV SCH ×2 (09:09→20:47)
[2017-12-28] MEDS: ENOXAPARIN SOD INJ 60 MG/0.6 ML SYR SC SCH ×2 (09:09→20:47)
[2017-12-28] MEDS ORDERED: MIDAZOLAM HCL 2 MG/2 ML VIAL IV PRN (09:15)
[2017-12-28] MEDS ORDERED: MAGNESIUM SULFATE 2GM/50ML 50 ML IV ONE (11:45)
[2017-12-28] MEDS: ALBUTEROL/IPRATROPIUM 3 ML NEB NEB SCH ×2 (13:54→19:02)
--- NOTE | 2017-12-28 14:57 | Progress Note ---
DATE: December 28, 2017 CARDIOLOGY PROGRESS NOTE SUBJECTIVE: Intubated, on sedation weaning trial. TELEMETRY: Atrial fibrillation with episodes of rapid ventricular response from 100 to 120. OBJECTIVE VITAL SIGNS: Temperature 97.8, heart rate 113, respiratory rate 26, blood pressure 90/74. GENERAL: Intubated and sedated. CHEST: Decreased breath sounds. CARDIOVASCULAR: Irregularly irregular rate and rhythm. Normal S1 and S2. ABDOMEN: Soft. EXTREMITIES: No edema. CARDIOVASCULAR MEDICATIONS: Reviewed. 1. Metoprolol IV being held this afternoon due to low-normal blood pressure reads. 2. Amiodarone 0.5 mg per minute IV. 3. Lovenox IV. STUDIES: Reviewed. White blood cells 21, platelets 124, hemoglobin 10.5. Sodium 134, potassium 2.6, repleted at 3.2, chloride 102, bicarbonate 21, BUN 9, creatinine is 2.49, glucose 111. ASSESSMENTS 1. Atrial fibrillation. 2. Hypertension. 3. Acute respiratory failure in the setting of aspiration pneumonia. 4. Pulmonary embolism. 5. Advanced dementia. 6. Status post small bowel obstruction. RECOMMENDATIONS 1. Replete electrolytes as needed. 2. Continue current cardiovascular medications with holding parameters. Agree with holding beta karime this afternoon given blood pressure reads. 3. Monitor for any evidence of active bleeding closely. Job#: [id number] [facility]
[2017-12-29] VITALS (91 sets, daily range): BP systolic 94–144; BP diastolic 50–97
[2017-12-29] MEDS: INSULIN REGULAR, HUMAN 100 UNIT/1 ML 3ML VIAL SQ SCH ×5 (00:15→21:00)
[2017-12-29] MEDS: MIDAZOLAM HCL 2 MG/2 ML VIAL IV PRN ×2 (01:36→16:06)
[2017-12-29] MEDS: ALBUTEROL/IPRATROPIUM 3 ML NEB NEB SCH ×5 (02:10→19:10)
[2017-12-29 04:08] LABS: BASOPHILS % 0.3 % (0.0-1.0); HEMOGLOBIN 9.4 g/dL (14.0-18.0); LYMPHOCYTES # (AUTO) 0.3 (1.0-3.2); LYMPHOCYTES % 2.1 % (18.0-39.1); MEAN CORPUSCULAR HEMOGLOBIN 31.5 pg (28-32); MEAN CORPUSCULAR HGB CONC 34.8 g/dL (31-35); MEAN CORPUSCULAR VOLUME 90.6 fL (81-99); MONOCYTES # (AUTO) 0.5 (0.2-0.8); MONOCYTES % 3.3 % (4.4-11.3); NEUTROPHILS # (AUTO) 12.8 (2.1-6.9); NEUTROPHILS % 92.6 % (38.7-80.0); PLATELET COUNT 149 x10e3/uL (140-360); RED BLOOD COUNT 2.98 x10e6/uL (4.3-5.7); RED CELL DISTRIBUTION WIDTH 15.3 % (11.7-14.4)
[2017-12-29 04:52] LABS: ALANINE AMINOTRANSFERASE 61 IU/L (0-55); ALBUMIN 1.6 g/dL (3.5-5.0); ALBUMIN/GLOBULIN RATIO 0.6 (0.8-2.0); ALKALINE PHOSPHATASE 72 IU/L (40-150); ANION GAP 13.7 mmol/L (8-16); BUN/CREATININE RATIO 38 (6-25); CALCIUM 8.2 mg/dL (8.4-10.2); CARBON DIOXIDE 19 mmol/L (22-29); CHLORIDE 110 mmol/L (98-107); CREATININE, SERUM 0.64 mg/dL (0.72-1.25); EST GLOMERULAR FILTRATION RATE > 60 ML/MIN (60-); GLUCOSE 254 mg/dL (74-118); MAGNESIUM 1.8 MG/DL (1.3-2.1); POTASSIUM 3.7 mmol/L (3.5-5.1); SODIUM 139 mmol/L (136-145)
[2017-12-29 05:08] LABS: PHOSPHORUS < 0.7 MG/DL (2.3-4.7)
[2017-12-29 05:09] LABS: BLOOD UREA NITROGEN 24 mg/dL (7-26)
[2017-12-29] MEDS: METOPROLOL TARTRATE INJ 1 MG/ML VIAL IV SCH ×3 (05:16→21:00)
[2017-12-29] MEDS: HYDROCORTISONE SOD SUCCINATE 100 MG VIAL IV SCH ×2 (06:20→13:25)
--- NOTE | 2017-12-29 06:36 | Diagnostic Imaging Report ---
ABDOMEN-1VIEW (KUB) Clinical history: Ileus Technique: AP view abdomen Comparison: 12/27/2017 Findings: The hemidiaphragms are excluded from view. NG tube not visualized and may be out of the [id number]. Contrast is again noted within the fundus. Paucity of small bowel gas. Prostate brachytherapy beats. Vascular calcifications. Impression: Persistent paucity of small bowel gas, which limits sensitivity for obstruction. Signed by: Dr Meryl Stevenson MD on 12/29/2017 6:33 AM
--- NOTE | 2017-12-29 06:38 | Diagnostic Imaging Report ---
CHEST SINGLE (PORTABLE), 12/29/2017 7:00 AM Technique: CHEST SINGLE (PORTABLE) Comparison: 12/28/2017 Clinical history: Shortness of breath Findings: Stable cardiac silhouette, bones, soft tissues. Impression: 1. Lines/Tubes: Stable right central venous catheter over the distal SVC, ET tube 2.9 cm above the sandeep and subdiaphragmatic NG tube. 2. Unchanged bilateral airspace opacities, most likely infectious, with small effusions. Signed by: Dr Meryl Stevenson MD on 12/29/2017 6:35 AM
[2017-12-29] MEDS: KCL 20MEQ/.9 SOD CHL 1,000 ML IV SCH (08:20)
[2017-12-29] MEDS: ENOXAPARIN SOD INJ 60 MG/0.6 ML SYR SC SCH (08:41)
[2017-12-29] MEDS: PANTOPRAZOLE 40 MG 10ML VIAL IV SCH ×2 (08:41→23:59)
[2017-12-29] MEDS: AMIODARONE 900MG 500 ML IV SCH (09:16)
--- NOTE | 2017-12-29 10:47 | Consultation ---
DATE OF CONSULTATION: December 29, 2017 INFECTIOUS DISEASE CONSULTATION ATTENDING PHYSICIAN: Dr. Solomon Santos REASON FOR CONSULTATION: Leukocytosis and sepsis. Thank you Dr. Groves and Dr. Santos for asking me to see this patient. HISTORY: The patient is an 82-year-old man referred for leukocytosis and sepsis. He is unable to give history. The chart review showed that he was admitted through the emergency department with acute pulmonary embolism. He was sent to the emergency department on December 19, 2017 from primary care provider's office for cough with sputum and shortness of breath. There was no fever, chills, or chest pain. In the emergency department, he was noted to have temperature of 98.3 degrees Fahrenheit, pulse 91, respiratory rate 24, blood pressure 113/71, and oxygen saturation 97% (FiO2 unknown). Initial laboratory studies showed blood leukocyte count of 10,850 with 81.3% neutrophils, PT 13.2, INR 1.08, and PTT 27.5. Blood gas showed pH 7.01, pCO2 62, pO2 72, bicarb 17 on 100% FiO2. Chest CT scan showed pulmonary embolism. Bilateral lower extremity venous Doppler ultrasound showed no DVT. The patient was stabilized on the medical floor. Unfortunately 5 days into admission, he deteriorated and required intubation and transfer to the ICU. Chest x-ray showed findings consistent with multifocal pneumonia and aspiration; and plain abdominal x-ray showed markedly distended stomach and proximal small bowel consistent with small-bowel obstruction. The patient has since been evaluated by the surgical service. 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 PAST SURGICAL HISTORY: Hernia repair. ALLERGIES: ASPIRIN. MEDICATION: See MAR. The current antibiotic is Zosyn 3.375 g IV piggyback q.6h. IMMUNIZATIONS: Pneumococcal vaccination status cannot be verified at this time. FAMILY HISTORY: Significant for diabetes mellitus. SOCIAL HISTORY: No alcohol or tobacco use. REVIEW OF SYSTEMS: Unable to obtain. PHYSICAL EXAMINATION: GENERAL: Critically ill. VITAL SIGNS: T-max 99.4, pulse 105, respiratory rate 27, blood pressure 120/69, weight 140 pounds. HEENT: Atraumatic. There is no icterus or injection of conjunctivae. There is no ear or nasal discharge. Orally intubated. NECK: Supple. No meningismus. LUNGS: Few rhonchi bilaterally. HEART: Normal S1 and S2. Tachycardic. ABDOMEN: Soft, nontender. EXTREMITIES: There is +edema of the upper limbs bilaterally. There is no edema of the lower limbs. Also, there is no clubbing or cyanosis. SKIN: There is no acute erythema. PRODUCT MANAGER: Lightly sedated and opens eyes on verbal stimuli. LABORATORY AND DIAGNOSTICS: WBC 13,830, down from 31,000; hemoglobin 9.4, platelets 149,000, neutrophils 92.6, lymphs 2.1, mono 3.3, eosinophils 0, and basophils 0. BUN 24, creatinine 0.46. Blood glucose 254. AST 8, ALT 61, alk phos 72, total bilirubin 0.4. Hemoglobin A1c 5.5. December 19, 2017 blood culture, no growth. December 19, 2017, urine culture, no growth. December 24, 2017, sputum culture grew Anne krusei and Anne albicans. IMPRESSION: 1. ? Sepsis due to aspiration pneumonia, not present on admission. 2. Acute respiratory failure, appears to be multifactorial including pneumonia and pulmonary embolism. 3. Pulmonary embolism. 4. Status post small-bowel obstruction. PLAN: 1. Change Zosyn to 3.375 g IV piggyback q.8h. infused over 4 hours. 2. Taper off steroids. Thank you. Job#: [id number] DR CALDERON
[2017-12-29] MEDS: SODIUM BICARBONATE 8.4% SYRING 150 ML in DEXTROSE 5% 1,000 ML IV SCH (11:35)
[2017-12-29 11:47] LABS: ANION GAP 12.1 mmol/L (8-16); BLOOD UREA NITROGEN 26 mg/dL (7-26); BUN/CREATININE RATIO 41 (6-25); CALCIUM 8.1 mg/dL (8.4-10.2); CARBON DIOXIDE 22 mmol/L (22-29); CHLORIDE 110 mmol/L (98-107); CREATININE, SERUM 0.63 mg/dL (0.72-1.25); EST GLOMERULAR FILTRATION RATE > 60 ML/MIN (60-); GLUCOSE 334 mg/dL (74-118); POTASSIUM 3.1 mmol/L (3.5-5.1); SODIUM 141 mmol/L (136-145)
[2017-12-29] MEDS: PIPER-TAZ 3.375 GM 50 ML IV SCH ×2 (11:54→21:00)
[2017-12-29] MEDS: POTASSIUM CHLORIDE 20MEQ/100ML 100 ML IV PRN (12:57)
--- NOTE | 2017-12-29 15:35 | Diagnostic Imaging Report ---
EXAMINATION: CHEST SINGLE (PORTABLE) INDICATION: \S\resp failure COMPARISON: Chest x-ray 12/29/2017 FINDINGS: AP view TUBES and LINES: Right subclavian line with tip in mid SVC is unchanged. Endotracheal tube tip is 4.8 cm above the sandeep, unchanged. Nasogastric tube courses into the stomach. LUNGS: Slight improvement in diffuse interstitial and alveolar opacities. PLEURA: Unchanged tiny bilateral pleural effusions. HEART AND MEDIASTINUM: The cardiomediastinal silhouette is unremarkable. BONES AND SOFT TISSUES: No acute osseous lesion. Soft tissues are unremarkable. UPPER ABDOMEN: No free air under the diaphragm. IMPRESSION: Slight improvement in bilateral interstitial and patchy alveolar airspace opacities. This is most likely infectious etiology. Signed by: Dr. Osmel Sharma M.D. on 12/29/2017 3:32 PM
[2017-12-29 15:38] LABS: ABG HCO3 22 mmol/L (23-28); ABG PCO2 28 mmHg (41-51); ABG PH 7.51 (7.31-7.41); ABG PO2 164 mmHg (80-105)
--- NOTE | 2017-12-29 20:01 | Progress Note ---
DATE: December 29, 2017 CARDIOLOGY PROGRESS NOTE SUBJECTIVE: Intubated and sedated. OBJECTIVE VITAL SIGNS: Temperature 98.2, heart rate 111 on telemetry, in atrial fibrillation. Blood pressure 130/79, respiratory rate 28 on ventilator support. O2 at is 98%. BMI is 24. GENERAL: Intubated, sedated. CHEST: With coarse breath sounds. CARDIOVASCULAR: Irregularly, irregular rate and rhythm. Normal S1 and S2. No S3 or S4. ABDOMEN: Soft. EXTREMITIES: Trace edema. CARDIOVASCULAR MEDICATIONS: Reviewed. On Lovenox 60 mg every 12 hours, Protonix 40 mg every 12 hours, amiodarone IV drip, 0.25 mg per minute and metoprolol tartrate 2.5 mg q.8 h. IV. STUDIES: Reviewed. Sodium 139. Potassium 3.7. Chloride 110. Bicarbonate 19. BUN 24. Creatinine 0.64. Glucose 254. White blood cells 13.8. Hemoglobin 9.4. Platelets 149,000. INR 2.4. AST 18, ALT 61, alkaline phosphatase 72. ASSESSMENT: 1. Coagulopathy. 2. Chronic anemia. 3. Atrial fibrillation. 4. Pulmonary embolism. 5. Advanced dementia. 6. Aspiration pneumonia. 7. Acute respiratory failure. 8. Hypertension. 9. Diabetes/hyperglycemia. RECOMMENDATIONS: Overall, guarded prognosis. The patient with significant deterioration in his overall health in spite of chronic poor baseline. Continue with vent support as tolerated. Refer to pulmonary critical care. Continue current cardiovascular medications and monitor hemoglobin and hematocrit closely. I appreciate GI input. Abdominal distention seems to have improved. Continue to monitor. Continue the rest of cardiovascular medications. Job#: [id number]
[2017-12-29] MEDS ORDERED: INSULIN DETEMIR 100 UNIT/ML PEN SQ SCH (21:00)
[2017-12-30] VITALS (75 sets, daily range): BP systolic 100–155; BP diastolic 48–96
[2017-12-30] MEDS: ENOXAPARIN SOD INJ 60 MG/0.6 ML SYR SC SCH
[2017-12-30] MEDS: ALBUTEROL/IPRATROPIUM 3 ML NEB NEB SCH ×4 (02:55→19:30)
[2017-12-30] MEDS: SODIUM BICARBONATE 8.4% SYRING 150 ML in DEXTROSE 5% 1,000 ML IV SCH (03:06)
[2017-12-30] MEDS: MIDAZOLAM HCL 2 MG/2 ML VIAL IV PRN (03:13)
[2017-12-30 04:55] LABS: ALANINE AMINOTRANSFERASE 55 IU/L (0-55); ALBUMIN 1.6 g/dL (3.5-5.0); ALBUMIN/GLOBULIN RATIO 0.5 (0.8-2.0); ALKALINE PHOSPHATASE 82 IU/L (40-150); ANION GAP 9.5 mmol/L (8-16); BLOOD UREA NITROGEN 24 mg/dL (7-26); BUN/CREATININE RATIO 47 (6-25); CALCIUM 7.7 mg/dL (8.4-10.2); CARBON DIOXIDE 29 mmol/L (22-29); CHLORIDE 106 mmol/L (98-107); CREATININE, SERUM 0.51 mg/dL (0.72-1.25); EST GLOMERULAR FILTRATION RATE > 60 ML/MIN (60-); GLUCOSE 227 mg/dL (74-118); SODIUM 142 mmol/L (136-145)
[2017-12-30 05:05] LABS: POTASSIUM 2.5 mmol/L (3.5-5.1)
[2017-12-30 06:11] LABS: BASOPHILS % 0.2 % (0.0-1.0); EOSINOPHILS % 0.1 % (0.0-6.0); HEMATOCRIT 24.6 % (38.2-49.6); HEMOGLOBIN 8.5 g/dL (14.0-18.0); LYMPHOCYTES # (AUTO) 0.6 (1.0-3.2); LYMPHOCYTES % 4.9 % (18.0-39.1); MEAN CORPUSCULAR HEMOGLOBIN 31.3 pg (28-32); MEAN CORPUSCULAR HGB CONC 34.6 g/dL (31-35); MEAN CORPUSCULAR VOLUME 90.4 fL (81-99); MONOCYTES # (AUTO) 0.3 (0.2-0.8); NEUTROPHILS # (AUTO) 11.1 (2.1-6.9); PLATELET COUNT 144 x10e3/uL (140-360); RED BLOOD COUNT 2.72 x10e6/uL (4.3-5.7); RED CELL DISTRIBUTION WIDTH 15.7 % (11.7-14.4)
--- NOTE | 2017-12-30 06:22 | Diagnostic Imaging Report ---
CHEST SINGLE (PORTABLE), 12/30/2017 6:00 AM Technique: CHEST SINGLE (PORTABLE) Comparison: Previous day Clinical history: Respiratory failure Findings: See impression. Left lung apex is partially excluded. Impression: 1. Lines/Tubes: Stable ET tube about 4 cm above the sandeep, subdiaphragmatic NG tube, right subclavian central venous catheter over the distal SVC. 2. Persistent bilateral airspace opacities, likely infectious, and small effusions. Signed by: Dr Meryl Stevenson MD on 12/30/2017 6:18 AM
[2017-12-30] MEDS: PIPER-TAZ 3.375 GM 50 ML IV SCH ×3 (07:00→20:25)
[2017-12-30] MEDS: METOPROLOL TARTRATE INJ 1 MG/ML VIAL IV SCH ×3 (07:35→21:30)
[2017-12-30] MEDS: POTASSIUM CHLORIDE 20MEQ/100ML 100 ML IV SCH ×3 (07:36→12:00)
[2017-12-30] MEDS: INSULIN REGULAR, HUMAN 100 UNIT/1 ML 3ML VIAL SQ SCH ×3 (07:36→18:30)
[2017-12-30 08:01] LABS: ABG HCO3 31 mmol/L (23-28); ABG PCO2 38 mmHg (41-51); ABG PH 7.51 (7.31-7.41); ABG PO2 113 mmHg (80-105)
[2017-12-30] MEDS: PANTOPRAZOLE 40 MG 10ML VIAL IV SCH ×2 (09:30→21:30)
[2017-12-30 09:43] LABS: BAND NEUTROPHILS % (MANUAL) 1 %; EOSINOPHILS % (MANUAL) 1 % (0-7); LYMPHOCYTES % (MANUAL) 5 % (19-48); MONOCYTES % (MANUAL) 1 % (3.4-9.0); NEUTROPHILS % (MANUAL) 92 % (40-74)
[2017-12-30 09:44] LABS: ANISOCYTOSIS SLIGHT; HYPOCHROMASIA SLIGHT; PLATELET ESTIMATE SLIGHTLY DECREASED; POIKILOCYTOSIS SLIGHT; RBC MORPHOLOGY COMMENT NORMAL
[2017-12-30 09:45] LABS: PLATELET MORPHOLOGY COMMENT NORMAL
[2017-12-30] MEDS: POTASSIUM CHLORIDE 20 MEQ in DEXTROSE 5% 1,000 ML IV SCH (11:00)
--- NOTE | 2017-12-30 11:35 | Progress Note ---
DATE: December 30, 2017 CARDIOLOGY PROGRESS NOTE SUBJECTIVE: No complaints. OBJECTIVE VITAL SIGNS: Temperature 100.6, heart rate 111, respiratory rate 29, blood pressure 145/68. GENERAL: Intubated. CHEST: Coarse breath sounds. CARDIOVASCULAR: Irregularly irregular rate and rhythm. Normal S1 and S2. ABDOMEN: Soft. EXTREMITIES: Trace edema. CARDIOVASCULAR MEDICATIONS: Reviewed. On metoprolol 2.5 mg IV every 8 hours, amiodarone IV, Lovenox has been discontinued. STUDIES: Reviewed. Potassium 2.5, chloride 106, bicarbonate 29, BUN 24, creatinine 0.5, glucose 227. Hemoglobin 8.5. AST 45, ALT 55. Calcium 7.7. ASSESSMENTS 1. Acute respiratory failure. 2. Atrial fibrillation. 3. Dementia. 4. Aspiration pneumonia. 5. Anemia. RECOMMENDATIONS: Continue current cardiovascular medications. Monitor H and H closely. Had a hemoglobin drop of 1 point. Lovenox is currently on hold. Has had coagulopathy. Remains in febrile episodes. Wean vent as tolerated. Overall, guarded prognosis. Job#: [id number] MILVIA
[2017-12-30] MEDS ORDERED: ENOXAPARIN SOD INJ 60 MG/0.6 ML SYR SC SCH (15:00)
[2017-12-30] MEDS: BALSAM PERU/CASTOR OIL 60 GM OINT...G. TP SCH (16:10)
[2017-12-30] MEDS: INSULIN DETEMIR 100 UNIT/ML PEN SQ SCH (21:31)
[2017-12-31] VITALS (59 sets, daily range): BP systolic 84–130; BP diastolic 47–85
[2017-12-31] MEDS: INSULIN REGULAR, HUMAN 100 UNIT/1 ML 3ML VIAL SQ SCH ×5 (00:17→23:52)
[2017-12-31] MEDS: POTASSIUM CHLORIDE 20 MEQ in DEXTROSE 5% 1,000 ML IV SCH ×2 (00:18→14:45)
[2017-12-31] MEDS: ALBUTEROL/IPRATROPIUM 3 ML NEB NEB SCH ×4 (00:30→19:00)
[2017-12-31] MEDS: PIPER-TAZ 3.375 GM 50 ML IV SCH ×2 (03:36→14:51)
[2017-12-31 04:49] LABS: BASOPHILS % 0.2 % (0.0-1.0); EOSINOPHILS # (AUTO) 0.2 (0.0-0.4); EOSINOPHILS % 1.3 % (0.0-6.0); HEMATOCRIT 26.4 % (38.2-49.6); LYMPHOCYTES # (AUTO) 0.9 (1.0-3.2); LYMPHOCYTES % 5.8 % (18.0-39.1); MEAN CORPUSCULAR HEMOGLOBIN 31.3 pg (28-32); MEAN CORPUSCULAR HGB CONC 34.1 g/dL (31-35); MEAN CORPUSCULAR VOLUME 91.7 fL (81-99); MONOCYTES # (AUTO) 0.2 (0.2-0.8); MONOCYTES % 1.6 % (4.4-11.3); NEUTROPHILS # (AUTO) 13.5 (2.1-6.9); NEUTROPHILS % 89.4 % (38.7-80.0); PLATELET COUNT 135 x10e3/uL (140-360); RED BLOOD COUNT 2.88 x10e6/uL (4.3-5.7)
[2017-12-31] MEDS: METOPROLOL TARTRATE INJ 1 MG/ML VIAL IV SCH ×3 (05:00→18:16)
[2017-12-31 05:13] LABS: INR 1.28
[2017-12-31 05:25] LABS: ALANINE AMINOTRANSFERASE 57 IU/L (0-55); ALBUMIN 1.6 g/dL (3.5-5.0); ALBUMIN/GLOBULIN RATIO 0.5 (0.8-2.0); ALKALINE PHOSPHATASE 85 IU/L (40-150); BLOOD UREA NITROGEN 17 mg/dL (7-26); BUN/CREATININE RATIO 37 (6-25); CALCIUM 8.1 mg/dL (8.4-10.2); CARBON DIOXIDE 31 mmol/L (22-29); CHLORIDE 103 mmol/L (98-107); CREATININE, SERUM 0.46 mg/dL (0.72-1.25); EST GLOMERULAR FILTRATION RATE > 60 ML/MIN (60-); GLUCOSE 75 mg/dL (74-118); SODIUM 141 mmol/L (136-145)
[2017-12-31 06:16] LABS: MAGNESIUM 1.2 MG/DL (1.3-2.1); PHOSPHORUS 1.1 MG/DL (2.3-4.7)
[2017-12-31] MEDS ORDERED: MAGNESIUM SULFATE 2GM/50ML 50 ML IV ONE ×2 (07:00→07:33)
[2017-12-31 07:03] LABS: BAND NEUTROPHILS % (MANUAL) 4 %; EOSINOPHILS % (MANUAL) 1 % (0-7); LYMPHOCYTES % (MANUAL) 9 % (19-48); MONOCYTES % (MANUAL) 1 % (3.4-9.0); NEUTROPHILS % (MANUAL) 84 % (40-74); NUCLEATED RED BLOOD CELLS 1
[2017-12-31 07:17] LABS: RBC MORPHOLOGY COMMENT NORMAL
[2017-12-31 07:19] LABS: ANISOCYTOSIS SLIG; HYPOCHROMASIA SLIGHT; PLATELET ESTIMATE SLIGHTLY DECREASED; PLATELET MORPHOLOGY COMMENT NORMAL; POIKILOCYTOSIS SLIGHT
[2017-12-31] MEDS ORDERED: POTASSIUM PHOSPHATE 30 MM in SODIUM CHLORIDE 0.9% 250ML 250 ML IV ONE (08:00)
[2017-12-31] MEDS: BALSAM PERU/CASTOR OIL 60 GM OINT...G. TP SCH ×2 (09:00→17:00)
[2017-12-31] MEDS: PANTOPRAZOLE 40 MG 10ML VIAL IV SCH ×2 (09:00→20:46)
[2017-12-31] MEDS: AMIODARONE 900MG 500 ML IV SCH (17:17)
[2017-12-31] MEDS ORDERED: FUROSEMIDE INJ 10 MG/ML 4 ML VIAL IV NR (18:45)
[2017-12-31] MEDS ORDERED: FUROSEMIDE INJ 10 MG/ML 4 ML VIAL ONE (18:49)
--- NOTE | 2017-12-31 19:28 | Progress Note ---
DATE: December 31, 2017 CARDIOLOGY PROGRESS NOTE SUBJECTIVE: Remains intubated and sedated. OBJECTIVE VITAL SIGNS: Temperature 98.5, heart rate 103, atrial fibrillation on telemetry, respiratory rate 27, O2 sat 97% on ventilator support. Blood pressure 97/60. GENERAL: Intubated and sedated. CHEST: Coarse breath sounds, scattered rhonchi. CARDIOVASCULAR: Irregularly irregular rate and rhythm. Normal S1 and S2. ABDOMEN: Soft. EXTREMITIES: Trace edema. CARDIOVASCULAR MEDICATIONS: 1. Zosyn. 2. Pantoprazole. 3. Lovenox currently on hold. 4. Amiodarone IV at 0.25 mg per minute. 5. Metoprolol tartrate 2.5 mg IV q.8 h. LABORATORY DATA: Reviewed. Potassium of 3. Creatinine of 0.46. Glucose of 75. Hemoglobin 9. Platelets 135,000. INR 1.28 with normal transaminase. ASSESSMENT: 1. Acute respiratory failure on ventilator support. 2. Pulmonary embolism. 3. Advanced dementia. 4. Aspiration pneumonia. 5. Coagulopathy/DIC. 6. Diabetes mellitus. 7. Anemia. 8. Atrial fibrillation. PLAN: 1. Continue current cardiovascular medications. 2. Defer anticoagulation management to Dr. Barkley's expertise. The patient currently coagulopathic. 3. Ongoing discussions regarding trach per nurse has been postponed per family decision. Overall, remains in guarded prognosis and critical state. Will continue to follow closely. Job#: [id number] [facility]
[2017-12-31] MEDS: INSULIN DETEMIR 100 UNIT/ML PEN SQ SCH (20:47)
[2018-01-01] VITALS (67 sets, daily range): BP systolic 72–159; BP diastolic 44–79
[2018-01-01] MEDS: METOPROLOL TARTRATE INJ 1 MG/ML VIAL IV SCH ×4 (00:10→20:40)
[2018-01-01] MEDS: ALBUTEROL/IPRATROPIUM 3 ML NEB NEB SCH ×3 (00:30→14:35)
[2018-01-01 04:37] LABS: BASOPHILS % 0.1 % (0.0-1.0); EOSINOPHILS # (AUTO) 0.1 (0.0-0.4); EOSINOPHILS % 0.7 % (0.0-6.0); HEMOGLOBIN 8.9 g/dL (14.0-18.0); LYMPHOCYTES # (AUTO) 0.7 (1.0-3.2); LYMPHOCYTES % 3.5 % (18.0-39.1); MEAN CORPUSCULAR HEMOGLOBIN 31.3 pg (28-32); MEAN CORPUSCULAR HGB CONC 34.2 g/dL (31-35); MEAN CORPUSCULAR VOLUME 91.5 fL (81-99); MONOCYTES # (AUTO) 0.2 (0.2-0.8); NEUTROPHILS # (AUTO) 18.1 (2.1-6.9); NEUTROPHILS % 93.2 % (38.7-80.0); PLATELET COUNT 164 x10e3/uL (140-360); RED BLOOD COUNT 2.84 x10e6/uL (4.3-5.7)
[2018-01-01] MEDS: PIPER-TAZ 3.375 GM 50 ML IV SCH ×3 (04:55→20:39)
[2018-01-01 04:58] LABS: ALANINE AMINOTRANSFERASE 42 IU/L (0-55); ALBUMIN 1.5 g/dL (3.5-5.0); ALBUMIN/GLOBULIN RATIO 0.4 (0.8-2.0); ALKALINE PHOSPHATASE 70 IU/L (40-150); ANION GAP 11.9 mmol/L (8-16); BLOOD UREA NITROGEN 18 mg/dL (7-26); BUN/CREATININE RATIO 39 (6-25); CALCIUM 8.1 mg/dL (8.4-10.2); CARBON DIOXIDE 31 mmol/L (22-29); CHLORIDE 102 mmol/L (98-107); CREATININE, SERUM 0.46 mg/dL (0.72-1.25); EST GLOMERULAR FILTRATION RATE > 60 ML/MIN (60-); SODIUM 142 mmol/L (136-145)
[2018-01-01 05:10] LABS: GLUCOSE 55 mg/dL (74-118); POTASSIUM 2.9 mmol/L (3.5-5.1)
[2018-01-01] MEDS: INSULIN REGULAR, HUMAN 100 UNIT/1 ML 3ML VIAL SQ SCH ×4 (05:31→23:54)
[2018-01-01] MEDS: DEXTROSE 50% SYRINGE 50 ML IV PRN (05:32)
[2018-01-01] MEDS ORDERED: MAGNESIUM SULFATE 2GM/50ML 50 ML IV ONE (06:30)
[2018-01-01] MEDS ORDERED: POTASSIUM CHL 40 MEQ in SODIUM CHLORIDE 0.9% 250ML 230 ML IV ONE (06:30)
[2018-01-01] MEDS ORDERED: POTASSIUM PHOSPHATE 30 MM in SODIUM CHLORIDE 0.9% 250ML 250 ML IV ONE (07:30)
[2018-01-01] MEDS: POTASSIUM CHLORIDE 10MEQ/100ML 100 ML IV SCH ×5 (07:45→10:00)
[2018-01-01 08:29] LABS: ANISOCYTOSIS SLIGHT; BAND NEUTROPHILS % (MANUAL) 1 %; HYPOCHROMASIA SLIGHT; LYMPHOCYTES % (MANUAL) 4 % (19-48); NEUTROPHILS % (MANUAL) 94 % (40-74); PLATELET ESTIMATE ADEQUATE; PLATELET MORPHOLOGY COMMENT NORMAL; RBC MORPHOLOGY COMMENT NORMAL
[2018-01-01] MEDS: PANTOPRAZOLE 40 MG 10ML VIAL IV SCH ×2 (09:00→20:40)
[2018-01-01] MEDS: BALSAM PERU/CASTOR OIL 60 GM OINT...G. TP SCH ×2 (09:00→16:29)
--- NOTE | 2018-01-01 09:53 | Diagnostic Imaging Report ---
PROCEDURE: CHEST SINGLE (PORTABLE) COMPARISON: 12/30/2017. INDICATIONS: SHORTNESS OF BREATH FINDINGS: Endotracheal tube, enteric tube, and right subclavian central venous catheter are stable in position. Slight interval worsening patchy bilateral consolidations likely reflective of multifocal pneumonia. Small bilateral pleural effusions. Stable cardiomediastinal contour with tortuosity and atherosclerotic calcification of the thoracic aorta. No acute osseous abnormality. CONCLUSION: Stable position of support lines and tubes. Worsening multifocal air space disease, likely infectious, with small bilateral pleural effusions. Dictated by: Omega Valenzuela M.D. on 01/01/2018 at 9:59 Electronically approved by: Omega Valenzuela M.D. on 01/01/2018 at 9:59
[2018-01-01] MEDS: LORAZEPAM 0.5 MG TAB PO SCH ×2 (10:50→16:28)
[2018-01-01] MEDS: MIDAZOLAM HCL 2 MG/2 ML VIAL IV PRN (11:00)
[2018-01-01 14:52] LABS: ABG PH 7.54 (7.31-7.41)
[2018-01-01 14:53] LABS: ABG HCO3 29 mmol/L (23-28); ABG PCO2 34 mmHg (41-51); ABG PO2 144 mmHg (80-105)
[2018-01-01] MEDS: FUROSEMIDE INJ 10 MG/ML 4 ML VIAL IV SCH ×2 (16:28→20:39)
--- NOTE | 2018-01-01 21:23 | Progress Note ---
DATE: January 01, 2018 CARDIOLOGY PROGRESS NOTE SUBJECTIVE: Remains intubated and sedated. OBJECTIVE VITAL SIGNS: Temperature 98.3, heart rate 106, AFib on telemetry, blood pressure 101/66, respiratory rate 28, O2 sat 98%. GENERAL: Intubated and sedated. CHEST: Decreased breath sounds. CARDIOVASCULAR: Irregular rate and rhythm. Normal S1 and S2. No S3 or S4. ABDOMEN: Soft. EXTREMITIES: Trace edema. CARDIOVASCULAR MEDICATIONS: Reviewed. 1. Lovenox on hold. 2. Metoprolol tartrate 2.5 mg IV q.8 h, withholding parameters. STUDIES: Reviewed. Significant for a potassium of 2.9. Apical infiltrates on chest x-ray, which seemed more pronounced. Hemoglobin 8.9 with platelets 164,000 and INR of 1.28. ASSESSMENT 1. Hypokalemia, undergoing repletion. 2. Acute respiratory failure in the setting of aspiration pneumonia, undergoing prolonged respiratory ventilatory support. 3. Atrial fibrillation. 4. Pulmonary embolism. 5. Dementia. RECOMMENDATIONS: If okay with rest of attending physicians resume Lovenox at current dose. Continue metoprolol. Otherwise, advance weaning of vent. Job#: [id number] CQ
[2018-01-01] MEDS: INSULIN DETEMIR 100 UNIT/ML PEN SQ SCH (21:30)
[2018-01-02] VITALS (52 sets, daily range): BP systolic 83–135; BP diastolic 45–88
--- NOTE | 2018-01-02 01:30 | Diagnostic Imaging Report ---
CHEST SINGLE (PORTABLE), 01/02/2018 7:00 AM Technique: CHEST SINGLE (PORTABLE) Comparison: Previous day Clinical history: Shortness of breath Findings: See impression. Lung apices are partly included. Impression: 1. Lines/Tubes: Stable ET tube about 3 cm above the sandeep, subdiaphragmatic NG tube, right subclavian central venous catheter over the distal SVC. 2. Persistent bilateral airspace opacities, likely infectious, and small effusions. Signed by: Dr Meryl Stevenson MD on 01/02/2018 1:27 AM
[2018-01-02] MEDS: PIPER-TAZ 3.375 GM 50 ML IV SCH ×3 (03:12→21:57)
[2018-01-02 04:31] LABS: BASOPHILS % 0.2 % (0.0-1.0); EOSINOPHILS # (AUTO) 0.1 (0.0-0.4); EOSINOPHILS % 0.5 % (0.0-6.0); HEMATOCRIT 24.6 % (38.2-49.6); HEMOGLOBIN 8.3 g/dL (14.0-18.0); LYMPHOCYTES # (AUTO) 0.5 (1.0-3.2); LYMPHOCYTES % 2.6 % (18.0-39.1); MEAN CORPUSCULAR HEMOGLOBIN 31.6 pg (28-32); MEAN CORPUSCULAR HGB CONC 33.7 g/dL (31-35); MEAN CORPUSCULAR VOLUME 93.5 fL (81-99); MONOCYTES # (AUTO) 0.3 (0.2-0.8); MONOCYTES % 1.5 % (4.4-11.3); NEUTROPHILS # (AUTO) 18.1 (2.1-6.9); PLATELET COUNT 226 x10e3/uL (140-360); RED BLOOD COUNT 2.63 x10e6/uL (4.3-5.7)
[2018-01-02] MEDS: METOPROLOL TARTRATE INJ 1 MG/ML VIAL IV SCH ×3 (04:34→21:59)
[2018-01-02 04:51] LABS: ALANINE AMINOTRANSFERASE 36 IU/L (0-55); ALBUMIN 1.4 g/dL (3.5-5.0); ALBUMIN/GLOBULIN RATIO 0.3 (0.8-2.0); ALKALINE PHOSPHATASE 75 IU/L (40-150); ANION GAP 13.3 mmol/L (8-16); BLOOD UREA NITROGEN 22 mg/dL (7-26); BUN/CREATININE RATIO 37 (6-25); CALCIUM 8.1 mg/dL (8.4-10.2); CARBON DIOXIDE 30 mmol/L (22-29); CHLORIDE 101 mmol/L (98-107); CREATININE, SERUM 0.59 mg/dL (0.72-1.25); EST GLOMERULAR FILTRATION RATE > 60 ML/MIN (60-); GLUCOSE 190 mg/dL (74-118); POTASSIUM 3.3 mmol/L (3.5-5.1); SODIUM 141 mmol/L (136-145)
[2018-01-02] MEDS: INSULIN REGULAR, HUMAN 100 UNIT/1 ML 3ML VIAL SQ SCH ×3 (05:42→17:58)
[2018-01-02] MEDS: ALBUTEROL/IPRATROPIUM 3 ML NEB NEB SCH ×4 (07:25→20:20)
[2018-01-02] MEDS: LORAZEPAM 0.5 MG TAB PO SCH ×2 (08:51→16:19)
[2018-01-02] MEDS: BALSAM PERU/CASTOR OIL 60 GM OINT...G. TP SCH ×2 (09:00→16:19)
[2018-01-02] MEDS: PANTOPRAZOLE 40 MG 10ML VIAL IV SCH ×2 (09:00→21:59)
[2018-01-02] MEDS: FUROSEMIDE INJ 10 MG/ML 4 ML VIAL IV SCH ×2 (09:00→21:57)
[2018-01-02] MEDS: POTASSIUM CHLORIDE 20MEQ/100ML 100 ML IV PRN (09:38)
[2018-01-02] MEDS ORDERED: POTASSIUM CHLORIDE 20MEQ/15ML UDC NG NR (11:00)
[2018-01-02 11:06] LABS: MAGNESIUM 1.6 MG/DL (1.3-2.1); PHOSPHORUS 2.9 MG/DL (2.3-4.7)
[2018-01-02] MEDS ORDERED: SODIUM CHLORIDE 0.9% 250ML 250 ML ONE (14:35)
--- NOTE | 2018-01-02 20:08 | Progress Note ---
DATE: January 02, 2018 CARDIOLOGY PROGRESS NOTE SUBJECTIVE: Intubated and sedated. Amiodarone drip will be transitioned to NG tube amiodarone 400 mg daily. Today on telemetry in sinus rhythm. OBJECTIVE VITAL SIGNS: Temperature 98.6, heart rate 83, blood pressure 87/55 with a MAP of 66, respiratory rate 26, and O2 sat 99% on vent support. GENERAL: In no acute distress, intubated and sedated. CHEST: Decreased breath sounds. CARDIOVASCULAR: Regular rate and rhythm. Normal S1 and S2. ABDOMEN: Soft. EXTREMITIES: Trace edema. CARDIOVASCULAR MEDICATIONS: Reviewed. On amiodarone IV drip transitioning to p.o. amiodarone 400 mg daily and on metoprolol IV. After coordination of care with other treating physicians, we will initiate Lovenox at 40 mg subcutaneous daily and monitor response. Depending on response, can consider up-titration at a late date. STUDIES: Reviewed. Potassium 3.3, creatinine 0.59, hemoglobin 8.3, platelets 226. INR is 1.28. ASSESSMENT 1. Acute respiratory failure. 2. Pulmonary embolism. 3. Anemia. 4. Small-bowel obstruction, resolved. 5. Aspiration pneumonia. 6. Paroxysmal atrial fibrillation. 7. Advanced dementia. RECOMMENDATIONS: Continue beta karime. Initiate Lovenox as described above. Transition amiodarone to per NG tube. Job#: [id number]
[2018-01-02] MEDS: INSULIN DETEMIR 100 UNIT/ML PEN SQ SCH (22:02)
[2018-01-03] VITALS (44 sets, daily range): BP systolic 86–138; BP diastolic 46–69
[2018-01-03] MEDS: INSULIN REGULAR, HUMAN 100 UNIT/1 ML 3ML VIAL SQ SCH ×5 (00:36→23:17)
[2018-01-03] MEDS: ALBUTEROL/IPRATROPIUM 3 ML NEB NEB SCH ×4 (01:40→19:20)
[2018-01-03] MEDS: PIPER-TAZ 3.375 GM 50 ML IV SCH ×3 (03:17→20:30)
[2018-01-03 04:50] LABS: ANION GAP 10.9 mmol/L (8-16); BLOOD UREA NITROGEN 21 mg/dL (7-26); BUN/CREATININE RATIO 39 (6-25); CALCIUM 8.3 mg/dL (8.4-10.2); CARBON DIOXIDE 32 mmol/L (22-29); CHLORIDE 102 mmol/L (98-107); CREATININE, SERUM 0.54 mg/dL (0.72-1.25); EST GLOMERULAR FILTRATION RATE > 60 ML/MIN (60-); GLUCOSE 76 mg/dL (74-118); MAGNESIUM 1.6 MG/DL (1.3-2.1); PHOSPHORUS 2.5 MG/DL (2.3-4.7); SODIUM 142 mmol/L (136-145)
[2018-01-03 04:52] LABS: POTASSIUM 2.9 mmol/L (3.5-5.1)
[2018-01-03] MEDS: METOPROLOL TARTRATE INJ 1 MG/ML VIAL IV SCH ×3 (05:00→21:00)
[2018-01-03 06:00] LABS: CLARITY,URINE CLOUDY (CLEAR); COLOR,URINE YELLOW (YELLOW); KETONES,URINE NEGATIVE (NEGATIVE); LEUKOCYTE ESTERASE ,URINE 1+ (NEGATIVE); NITRITE,URINE NEGATIVE (NEGATIVE); PROTEIN,URINE DIPSTICK 1+ (NEGATIVE)
[2018-01-03 06:01] LABS: BILIRUBIN,URINE NEGATIVE (NEGATIVE); URINE UROBILINOGEN 4 mg/dL (0.2 - 1)
[2018-01-03 06:02] LABS: BACTERIA,URINE FEW /HPF; EPITHELIAL CELLS,URINE RARE /LPF; RBC,URINE >50 /HPF (0-5)
[2018-01-03] MEDS: PANTOPRAZOLE 40 MG 10ML VIAL IV SCH ×2 (09:21→21:56)
[2018-01-03] MEDS: FUROSEMIDE INJ 10 MG/ML 4 ML VIAL IV SCH ×2 (09:21→21:55)
[2018-01-03] MEDS: LORAZEPAM 0.5 MG TAB PO SCH ×2 (09:21→17:34)
[2018-01-03] MEDS: POTASSIUM CHLORIDE 20MEQ/100ML 100 ML IV PRN (09:22)
[2018-01-03] MEDS: BALSAM PERU/CASTOR OIL 60 GM OINT...G. TP SCH ×2 (09:22→17:34)
[2018-01-03] MEDS ORDERED: POTASSIUM CHLORIDE 20MEQ/15ML UDC NG ONE (10:45)
[2018-01-03] MEDS ORDERED: POTASSIUM CHLORIDE 10MEQ/100ML 200 ML IV ONE (10:45)
[2018-01-03] MEDS: AMIODARONE HCL 200 MG TAB PO SCH (10:57)
[2018-01-03] MEDS: ACETAMINOPHEN 325 MG/10 ML UDC NG PRN (11:54)
[2018-01-03] MEDS: ENOXAPARIN SOD INJ 40 MG/0.4 ML SYR SC SCH (17:34)
[2018-01-03] MEDS ORDERED: SODIUM CHLORIDE 0.9% 50ML 50 ML ONE (21:35)
[2018-01-03] MEDS: INSULIN DETEMIR 100 UNIT/ML PEN SQ SCH (21:57)
[2018-01-04] VITALS (37 sets, daily range): BP systolic 104–140; BP diastolic 58–78
--- NOTE | 2018-01-04 00:19 | Progress Note ---
DATE: January 03, 2018 CARDIOLOGY PROGRESS NOTE SUBJECTIVE: Remains intubated and sedated. OBJECTIVE VITAL SIGNS: Temperature 97.4, heart rate 92, respiratory rate 28, blood pressure 130/66, O2 sat 98% on vent support. GENERAL: No acute distress. Intubated and sedated. NECK: No JVD. CHEST: Decreased breath sounds in bilateral bases. CARDIOVASCULAR: Regular rate and rhythm. Normal S1 and S2. Systolic ejection murmur 1/6. No S3, no S4. On telemetry, in normal sinus rhythm. ABDOMEN: Soft. EXTREMITIES: Trace edema. CARDIOVASCULAR MEDICATIONS: Reviewed. 1. Lovenox 40 mg subcutaneous daily. 2. Amiodarone 400 mg daily. 3. Metoprolol tartrate 2.5 mg every 8 hours. 4. Furosemide 40 mg every 12 hours. LABORATORY STUDIES: Reviewed. Sodium 142, potassium 3.9, chloride 102, bicarbonate 32, BUN 21, creatinine 0.54, glucose 76. White blood cells 19.2, hemoglobin 8.3, platelets 226,000. INR 1.2. Normal transaminases. ASSESSMENT: 1. Acute respiratory failure. 2. Aspiration pneumonia. 3. Hypertension. 4. Pulmonary embolism. 5. Paroxysmal atrial fibrillation. 6. Anemia. RECOMMENDATIONS: 1. Continue current cardiovascular medications. 2. Possible trach in the next couple of days if remains unable to be weaned off vent. 3. Monitor H and H. 4. Continue Lovenox at current dose with plans for up-titration if hemoglobin remains stable. 5. Replete electrolytes as needed. Job#: [id number]
[2018-01-04] MEDS: ALBUTEROL/IPRATROPIUM 3 ML NEB NEB SCH ×4 (01:15→19:30)
[2018-01-04] MEDS: PIPER-TAZ 3.375 GM 50 ML IV SCH (04:46)
[2018-01-04] MEDS: METOPROLOL TARTRATE INJ 1 MG/ML VIAL IV SCH ×3 (04:47→20:56)
[2018-01-04] MEDS: MIDAZOLAM HCL 2 MG/2 ML VIAL IV PRN ×2 (04:48→20:56)
[2018-01-04] MEDS: ACETAMINOPHEN 325 MG/10 ML UDC NG PRN (04:48)
[2018-01-04 05:30] LABS: BASOPHILS % 0.2 % (0.0-1.0); EOSINOPHILS # (AUTO) 0.1 (0.0-0.4); HEMATOCRIT 24.4 % (38.2-49.6); LYMPHOCYTES # (AUTO) 0.4 (1.0-3.2); LYMPHOCYTES % 3.4 % (18.0-39.1); MEAN CORPUSCULAR HGB CONC 32.8 g/dL (31-35); MEAN CORPUSCULAR VOLUME 94.6 fL (81-99); MONOCYTES # (AUTO) 0.2 (0.2-0.8); MONOCYTES % 1.7 % (4.4-11.3); NEUTROPHILS # (AUTO) 11.9 (2.1-6.9); PLATELET COUNT 294 x10e3/uL (140-360); RED BLOOD COUNT 2.58 x10e6/uL (4.3-5.7); RED CELL DISTRIBUTION WIDTH 15.8 % (11.7-14.4)
[2018-01-04 05:53] LABS: ALANINE AMINOTRANSFERASE 30 IU/L (0-55); ALBUMIN 1.5 g/dL (3.5-5.0); ALBUMIN/GLOBULIN RATIO 0.3 (0.8-2.0); ALKALINE PHOSPHATASE 76 IU/L (40-150); ANION GAP 11.3 mmol/L (8-16); BLOOD UREA NITROGEN 27 mg/dL (7-26); BUN/CREATININE RATIO 51 (6-25); CALCIUM 8.3 mg/dL (8.4-10.2); CARBON DIOXIDE 32 mmol/L (22-29); CHLORIDE 104 mmol/L (98-107); CREATININE, SERUM 0.53 mg/dL (0.72-1.25); EST GLOMERULAR FILTRATION RATE > 60 ML/MIN (60-); GLUCOSE 96 mg/dL (74-118); POTASSIUM 3.3 mmol/L (3.5-5.1); SODIUM 144 mmol/L (136-145)
[2018-01-04] MEDS: INSULIN REGULAR, HUMAN 100 UNIT/1 ML 3ML VIAL SQ SCH ×3 (06:00→18:00)
[2018-01-04] MEDS ORDERED: POTASSIUM CHLORIDE 20MEQ/100ML 200 ML IV ONE (07:30)
[2018-01-04] MEDS: FUROSEMIDE INJ 10 MG/ML 4 ML VIAL IV SCH ×2 (09:15→20:55)
[2018-01-04] MEDS: AMIODARONE HCL 200 MG TAB PO SCH (09:15)
[2018-01-04] MEDS: NYSTATIN 15 GM POWDER UD BTL TOP SCH ×2 (09:15→18:17)
[2018-01-04] MEDS: BALSAM PERU/CASTOR OIL 60 GM OINT...G. TP SCH ×2 (09:15→18:17)
[2018-01-04] MEDS: PANTOPRAZOLE 40 MG 10ML VIAL IV SCH ×2 (09:15→20:56)
[2018-01-04] MEDS: LORAZEPAM 0.5 MG TAB PO SCH ×2 (09:15→18:17)
[2018-01-04] MEDS: MICAFUNGIN SODIUM 100 ML IV SCH (11:24)
[2018-01-04] MEDS: ENOXAPARIN SOD INJ 40 MG/0.4 ML SYR SC SCH (18:17)
--- NOTE | 2018-01-04 18:51 | Progress Note ---
DATE: January 04, 2018 CARDIOLOGY PROGRESS NOTE SUBJECTIVE: Intubated and sedated. OBJECTIVE VITAL SIGNS: Temperature 98.5, heart rate 89, respiratory rate 36, blood pressure 134/70, O2 sat 98% on vent support. GENERAL: Intubated and sedated. CHEST: Decreased breath sounds. CARDIOVASCULAR: Regular rate and rhythm. Normal S1 and S2. No S3 or S4. ABDOMEN: Soft. EXTREMITIES: Trace edema. CARDIOVASCULAR MEDICATIONS 1. Metoprolol tartrate 2.5 mg every 8 hours IV. 2. Amiodarone 400 mg daily p.o. 3. Lovenox 40 mg subcutaneous daily. STUDIES: Reviewed. White blood cells 12.7, hemoglobin 8, platelets 294,000. Sodium 144, potassium 3.3, chloride 104, bicarbonate 32, BUN 27, creatinine is 0.53, glucose 159. Total bilirubin 0.4, AST 26, ALT 30, alk phos 76, total protein 6.3 and albumin 1.5. Urine culture growing Anne albicans and Anne krusei. Stool occult blood positive. ASSESSMENT 1. Acute respiratory failure in the setting of aspiration pneumonia, now with prolonged ventilation support. The patient is weak. Will likely need tracheostomy. 2. Hypertension. 3. Pulmonary embolism. 4. Paroxysmal atrial fibrillation. 5. Anemia. 6. Deconditioning. 7. Anne urinary tract infection. 8. Positive occult blood and stool. RECOMMENDATIONS 1. Hold Lovenox for now. Possible trach soon. Given recent PE, once trach completed, please resume Lovenox challenge and assess response and monitor H and H closely. If gross bleeding, may need further workup. Consider GI evaluation. 2. Overall, guarded prognosis. Continue current cardiovascular medications otherwise. Job#: [id number]
[2018-01-04] MEDS: INSULIN DETEMIR 100 UNIT/ML PEN SQ SCH (20:51)
[2018-01-05] VITALS (88 sets, daily range): BP systolic 79–172; BP diastolic 46–86
[2018-01-05] MEDS: INSULIN REGULAR, HUMAN 100 UNIT/1 ML 3ML VIAL SQ SCH ×4 (00:43→18:00)
[2018-01-05] MEDS: ACETAMINOPHEN 325 MG/10 ML UDC NG PRN (00:50)
[2018-01-05] MEDS: ALBUTEROL/IPRATROPIUM 3 ML NEB NEB SCH ×4 (01:30→19:05)
[2018-01-05] MEDS ORDERED: LORAZEPAM INJ 2 MG/ML VIAL IV ONE (01:45)
[2018-01-05] MEDS: METOPROLOL TARTRATE INJ 1 MG/ML VIAL IV SCH ×3 (05:43→20:59)
[2018-01-05] MEDS: DEXTROSE 50% SYRINGE 50 ML IV PRN (05:44)
[2018-01-05 05:55] LABS: BASOPHILS % 0.2 % (0.0-1.0); EOSINOPHILS # (AUTO) 0.1 (0.0-0.4); EOSINOPHILS % 0.6 % (0.0-6.0); HEMATOCRIT 25.4 % (38.2-49.6); HEMOGLOBIN 8.4 g/dL (14.0-18.0); LYMPHOCYTES # (AUTO) 0.5 (1.0-3.2); LYMPHOCYTES % 4.2 % (18.0-39.1); MEAN CORPUSCULAR HEMOGLOBIN 31.6 pg (28-32); MEAN CORPUSCULAR HGB CONC 33.1 g/dL (31-35); MEAN CORPUSCULAR VOLUME 95.5 fL (81-99); MONOCYTES # (AUTO) 0.3 (0.2-0.8); MONOCYTES % 2.5 % (4.4-11.3); NEUTROPHILS # (AUTO) 10.2 (2.1-6.9); NEUTROPHILS % 91.8 % (38.7-80.0); PLATELET COUNT 337 x10e3/uL (140-360); RED BLOOD COUNT 2.66 x10e6/uL (4.3-5.7); RED CELL DISTRIBUTION WIDTH 15.8 % (11.7-14.4)
[2018-01-05 06:09] LABS: ALANINE AMINOTRANSFERASE 25 IU/L (0-55); ALBUMIN 1.5 g/dL (3.5-5.0); ALBUMIN/GLOBULIN RATIO 0.3 (0.8-2.0); ALKALINE PHOSPHATASE 74 IU/L (40-150); ANION GAP 11.2 mmol/L (8-16); BLOOD UREA NITROGEN 32 mg/dL (7-26); BUN/CREATININE RATIO 57 (6-25); CALCIUM 8.9 mg/dL (8.4-10.2); CARBON DIOXIDE 36 mmol/L (22-29); CHLORIDE 102 mmol/L (98-107); CREATININE, SERUM 0.56 mg/dL (0.72-1.25); EST GLOMERULAR FILTRATION RATE > 60 ML/MIN (60-); POTASSIUM 3.2 mmol/L (3.5-5.1); SODIUM 146 mmol/L (136-145)
[2018-01-05 06:21] LABS: GLUCOSE 47 mg/dL (74-118)
[2018-01-05] MEDS ORDERED: MAGNESIUM SULFATE 2GM/50ML 50 ML IV ONE (07:45)
[2018-01-05] MEDS ORDERED: POTASSIUM CHL IV ONE (07:45)
[2018-01-05] MEDS ORDERED: DEXTROSE 5% IV ONE (07:45)
[2018-01-05] MEDS ORDERED: POTASSIUM CHL 20 MEQ in DEXTROSE 5% 1,000 ML IV ONE (08:00)
[2018-01-05] MEDS: LORAZEPAM 0.5 MG TAB PO SCH ×2 (08:30→17:19)
[2018-01-05] MEDS: BALSAM PERU/CASTOR OIL 60 GM OINT...G. TP SCH ×2 (08:48→17:15)
[2018-01-05] MEDS: AMIODARONE HCL 200 MG TAB PO SCH (08:48)
[2018-01-05] MEDS: NYSTATIN 15 GM POWDER UD BTL TOP SCH ×2 (08:48→17:15)
[2018-01-05] MEDS: PANTOPRAZOLE 40 MG 10ML VIAL IV SCH ×2 (08:48→20:58)
[2018-01-05] MEDS: FUROSEMIDE INJ 10 MG/ML 4 ML VIAL IV SCH ×2 (08:48→20:58)
[2018-01-05] MEDS: MICAFUNGIN SODIUM 100 ML IV SCH (08:53)
[2018-01-05] MEDS ORDERED: MICAFUNGIN SODIUM 50 MG/50 ML BAG IV SCH (09:00)
[2018-01-05] MEDS: FENTANYL CITRATE INJ 2,000 MCG in SODIUM CHLORIDE 0.9% 250ML 210 ML IV PRN (10:54)
--- NOTE | 2018-01-05 19:33 | Progress Note ---
DATE: January 05, 2018 CARDIOLOGY PROGRESS NOTE SUBJECTIVE: Remains intubated and sedated. OBJECTIVE VITAL SIGNS: Temperature 99.2, heart rate 86, blood pressure 158/74, respiratory rate 31, O2 sat 100% on vent support. GENERAL: Intubated and sedated. CHEST: Decreased breath sounds. CARDIOVASCULAR: Regular rate and rhythm. Normal S1 and S2. No S3, no S4. On telemetry, remains in normal sinus rhythm. ABDOMEN: Soft. EXTREMITIES: Trace edema. CARDIOVASCULAR MEDICATIONS: Reviewed. 1. Metoprolol. 2. Furosemide. 3. KCl. 4. Lovenox 40 mg subcutaneous daily. 5. Protonix. 6. Amiodarone 400 mg p.o. daily. STUDIES: Reviewed. Potassium remains low at 3.2, bicarbonate of 36, creatinine is 0.56. Hemoglobin 8.4. INR 1.2. ASSESSMENT 1. Prolonged ventilatory support in a patient presenting with pulmonary embolism, dementia, complicated with small-bowel obstruction and aspiration pneumonia with acute respiratory failure. 2. Deconditioning. 3. Paroxysmal atrial fibrillation, currently in normal sinus rhythm. 4. Failure to thrive. RECOMMENDATIONS 1. The patient is undergoing evaluation for possible trach and PEG over the following 48 hours. Okay to hold Lovenox for this. 2. Monitor H and H closely. 3. After this is completed and if no significant bleeding issues, consider resuming Lovenox and up-titration accelerated and eventual transition back to long-term anticoagulation which can be done with Eliquis. Continue rest of the cardiovascular medications for now. Job#: [id number]
[2018-01-05] MEDS: INSULIN DETEMIR 100 UNIT/ML PEN SQ SCH (19:42)
[2018-01-06] VITALS (66 sets, daily range): BP systolic 97–147; BP diastolic 47–88
[2018-01-06] MEDS: INSULIN REGULAR, HUMAN 100 UNIT/1 ML 3ML VIAL SQ SCH ×5 (01:14→23:18)
[2018-01-06] MEDS: FENTANYL CITRATE INJ 2,000 MCG in SODIUM CHLORIDE 0.9% 250ML 210 ML IV PRN (02:11)
[2018-01-06] MEDS: MIDAZOLAM HCL 2 MG/2 ML VIAL IV PRN (02:12)
[2018-01-06] MEDS: ALBUTEROL/IPRATROPIUM 3 ML NEB NEB SCH ×4 (02:25→18:55)
[2018-01-06] MEDS: METOPROLOL TARTRATE INJ 1 MG/ML VIAL IV SCH ×3 (05:00→20:20)
[2018-01-06 05:09] LABS: INR 1.27; PROTHROMBIN TIME 14.9 seconds (11.9-14.5)
[2018-01-06 05:10] LABS: PARTIAL THROMBOPLASTIN TIME 41.3 seconds (23.8-35.5)
[2018-01-06 05:30] LABS: ALANINE AMINOTRANSFERASE 21 IU/L (0-55); ALBUMIN 1.4 g/dL (3.5-5.0); ALBUMIN/GLOBULIN RATIO 0.3 (0.8-2.0); ALKALINE PHOSPHATASE 66 IU/L (40-150); BLOOD UREA NITROGEN 28 mg/dL (7-26); BUN/CREATININE RATIO 57 (6-25); CALCIUM 8.3 mg/dL (8.4-10.2); CARBON DIOXIDE 35 mmol/L (22-29); CHLORIDE 98 mmol/L (98-107); CREATININE, SERUM 0.49 mg/dL (0.72-1.25); EST GLOMERULAR FILTRATION RATE > 60 ML/MIN (60-); SODIUM 139 mmol/L (136-145)
[2018-01-06 05:33] LABS: GLUCOSE 23 mg/dL (74-118)
[2018-01-06] MEDS: DEXTROSE 50% SYRINGE 50 ML IV PRN (05:38)
[2018-01-06 06:24] LABS: BASOPHILS % 0.2 % (0.0-1.0); EOSINOPHILS # (AUTO) 0.1 (0.0-0.4); EOSINOPHILS % 1.3 % (0.0-6.0); HEMATOCRIT 23.7 % (38.2-49.6); HEMOGLOBIN 7.8 g/dL (14.0-18.0); LYMPHOCYTES # (AUTO) 0.6 (1.0-3.2); MEAN CORPUSCULAR HEMOGLOBIN 31.6 pg (28-32); MEAN CORPUSCULAR HGB CONC 32.9 g/dL (31-35); MONOCYTES # (AUTO) 0.2 (0.2-0.8); MONOCYTES % 2.2 % (4.4-11.3); NEUTROPHILS # (AUTO) 8.2 (2.1-6.9); NEUTROPHILS % 89.5 % (38.7-80.0); PLATELET COUNT 343 x10e3/uL (140-360); RED BLOOD COUNT 2.47 x10e6/uL (4.3-5.7); RED CELL DISTRIBUTION WIDTH 15.3 % (11.7-14.4)
[2018-01-06] MEDS: LORAZEPAM 0.5 MG TAB PO SCH ×2 (07:30→16:30)
[2018-01-06] MEDS ORDERED: SODIUM CHLORIDE 0.9% 1000ML 1,000 ML ONE (08:37)
[2018-01-06] MEDS ORDERED: POTASSIUM CHLORIDE 20 MEQ TAB CR PO STA (09:42)
--- NOTE | 2018-01-06 10:01 | Operative Report ---
DATE OF PROCEDURE: January 06, 2018 PREOPERATIVE DIAGNOSIS: Respiratory failure. POSTOPERATIVE DIAGNOSIS: Respiratory failure. PROCEDURE: Tracheostomy. STEAM SHOVEL OILER: None. ANESTHESIA: General. INDICATIONS AND FINDINGS: The patient is an 82-year-old male who has been on a ventilator for about 2 weeks, is ventilator dependent. At surgery, patient had some mucus within trachea, otherwise no abnormalities were seen. The tube was placed easily without difficulty. TECHNIQUE: After adequate general anesthesia with patient in supine position, the neck was prepped and draped in sterile fashion with Rayo solution. A transverse incision was made about 2 cm above the sternal notch, carried down through the subcutaneous tissue and platysma. Subplatysmal flaps were raised superiorly and inferiorly. Strap muscles were divided in the midline, exposing the trachea. Isthmus of the thyroid divided between clamps and suture ligated with 2-0 Vicryl exposing the trachea. With the trachea elevated, a longitudinal incision was made between the second and third tracheal rings. The trachea was spread and grasped with Allis clamps, and the tracheal tube was pulled back. A #8 Shiley tracheostomy tube was placed without difficulty. Tube was connected to the ventilator, found to be ventilating well with no air leak. Hemostasis was seen to be adequate. The tracheostomy tube was sutured to the skin using 2-0 nylon and a tracheostomy dressing placed around the tube, and the strap placed around the patient's neck. Patient tolerated the procedure well. Estimated blood loss was less than 5 mL. There were no complications. All counts were correct. The patient was taken to the ICU in critical, but stable condition. Job#: [id number]
--- NOTE | 2018-01-06 10:09 | Progress Note ---
DATE: January 06, 2018 CARDIOLOGY PROGRESS NOTE SUBJECTIVE: Status post trach, on vent support and sedated. PHYSICAL EXAMINATION VITALS: Temperature 97.4, heart rate 85, respiratory rate is 25, blood pressure 98/51, O2 sat 98% on vent support. GENERAL: On vent support and sedated. Trach in place. CHEST: Decreased breath sounds. CARDIOVASCULAR: Irregular rate and rhythm. Normal S1 and S2. On telemetry, has atrial flutter with controlled ventricular response today. Is a new change from sinus rhythm yesterday. ABDOMEN: Soft. EXTREMITIES: Trace edema. CARDIOVASCULAR MEDICATIONS: Reviewed. 1. Furosemide 40 mg every 12 hours. 2. Lovenox 40 mg subcutaneous daily, on hold. 3. Amiodarone 400 mg daily. 4. Metoprolol tartrate 2.5 mg every 8 hours. STUDIES: Reviewed. Potassium 3, creatinine 0.49. Hemoglobin 7.8. Undergoing PRBC transfusion later today. INR 1.2. AST 24, ALT 21. ASSESSMENT 1. Acute respiratory failure in the setting of aspiration pneumonia: Now status post trach. 2. Failure to thrive with nasogastric tube in place: Pending percutaneous endoscopic gastrostomy tube. 3. Pulmonary embolism. 4. Aspiration pneumonia. 5. Hypertension. 6. Paroxysmal atrial fibrillation/atrial flutter. RECOMMENDATIONS: Continue current cardiovascular medications. Once procedure is completed, resume Lovenox. Job#: [id number] [place]
[2018-01-06] MEDS ORDERED: SODIUM CHLORIDE 0.9% 250ML 250 ML IV ONE (10:15)
[2018-01-06] MEDS ORDERED: POTASSIUM CHLORIDE 10MEQ/100ML 100 ML IV ONE (10:15)
[2018-01-06] MEDS: FUROSEMIDE INJ 10 MG/ML 4 ML VIAL IV SCH ×2 (10:26→20:19)
[2018-01-06] MEDS: AMIODARONE HCL 200 MG TAB PO SCH (10:27)
[2018-01-06] MEDS: MICAFUNGIN SODIUM 100 ML IV SCH (10:27)
[2018-01-06] MEDS: PANTOPRAZOLE 40 MG 10ML VIAL IV SCH ×2 (10:27→20:25)
[2018-01-06] MEDS: NYSTATIN 15 GM POWDER UD BTL TOP SCH ×2 (10:27→17:40)
[2018-01-06] MEDS: BALSAM PERU/CASTOR OIL 60 GM OINT...G. TP SCH ×2 (10:27→17:40)
[2018-01-06] MEDS ORDERED: SODIUM CHLORIDE 0.9% 250ML 250 ML ONE ×2 (11:18→16:36)
--- NOTE | 2018-01-06 11:27 | Diagnostic Imaging Report ---
PROCEDURE: CHEST SINGLE (PORTABLE) COMPARISON: 01/02/2018. INDICATIONS: INTUBATION FINDINGS: See conclusion CONCLUSION: 1. Interval removal of endotracheal tube and placement of tracheostomy, which projects over the mid trachea. Stable right subclavian central venous catheter and enteric tube. 2. Worsening patchy bilateral air space consolidations which may reflect edema or multifocal pneumonia. Small bilateral pleural effusions. Dictated by: Omega Valenzuela M.D. on 01/06/2018 at 11:33 Electronically approved by: Omega Valenzuela M.D. on 01/06/2018 at 11:33
[2018-01-06] MEDS ORDERED: MIDAZOLAM HCL 2 MG/2 ML VIAL ONE (14:42)
[2018-01-06] MEDS ORDERED: KETAMINE HCL INJ 50 MG/ML 10 ML VIAL ONE (14:42)
[2018-01-06] MEDS ORDERED: FENTANYL CITRATE/PF 100MCG/2 ML INJ ONE (14:42)
[2018-01-06] MEDS: ENOXAPARIN SOD INJ 40 MG/0.4 ML SYR SC SCH (17:00)
[2018-01-06] MEDS ORDERED: SEVOFLURANE INHAL SOLN 250 ML PEN BTL ONE (17:08)
[2018-01-06] MEDS: INSULIN DETEMIR 100 UNIT/ML PEN SQ SCH (21:00)
[2018-01-07] VITALS (175 sets, daily range): BP systolic 77–142; BP diastolic 43–105
[2018-01-07] MEDS: ALBUTEROL/IPRATROPIUM 3 ML NEB NEB SCH ×4 (01:40→19:10)
[2018-01-07 04:45] LABS: BASOPHILS % 0.2 % (0.0-1.0); EOSINOPHILS # (AUTO) 0.1 (0.0-0.4); EOSINOPHILS % 0.6 % (0.0-6.0); HEMATOCRIT 30.1 % (38.2-49.6); HEMOGLOBIN 10.1 g/dL (14.0-18.0); LYMPHOCYTES # (AUTO) 0.4 (1.0-3.2); LYMPHOCYTES % 4.8 % (18.0-39.1); MEAN CORPUSCULAR HEMOGLOBIN 30.2 pg (28-32); MEAN CORPUSCULAR HGB CONC 33.6 g/dL (31-35); MEAN CORPUSCULAR VOLUME 90.1 fL (81-99); MONOCYTES # (AUTO) 0.2 (0.2-0.8); MONOCYTES % 2.6 % (4.4-11.3); NEUTROPHILS # (AUTO) 7.4 (2.1-6.9); NEUTROPHILS % 91.2 % (38.7-80.0); PLATELET COUNT 246 x10e3/uL (140-360); RED BLOOD COUNT 3.34 x10e6/uL (4.3-5.7); RED CELL DISTRIBUTION WIDTH 16.8 % (11.7-14.4)
[2018-01-07 05:04] LABS: ANION GAP 11.3 mmol/L (8-16); BLOOD UREA NITROGEN 20 mg/dL (7-26); BUN/CREATININE RATIO 39 (6-25); CALCIUM 8.3 mg/dL (8.4-10.2); CARBON DIOXIDE 29 mmol/L (22-29); CHLORIDE 101 mmol/L (98-107); CREATININE, SERUM 0.51 mg/dL (0.72-1.25); EST GLOMERULAR FILTRATION RATE > 60 ML/MIN (60-); GLUCOSE 159 mg/dL (74-118); POTASSIUM 3.3 mmol/L (3.5-5.1); SODIUM 138 mmol/L (136-145)
[2018-01-07] MEDS: METOPROLOL TARTRATE INJ 1 MG/ML VIAL IV SCH ×3 (05:14→20:32)
[2018-01-07] MEDS: INSULIN REGULAR, HUMAN 100 UNIT/1 ML 3ML VIAL SQ SCH ×3 (06:00→18:00)
[2018-01-07 06:33] LABS: INR 1.33; PROTHROMBIN TIME 15.5 seconds (11.9-14.5)
[2018-01-07] MEDS ORDERED: POTASSIUM CHLORIDE 20MEQ/100ML 200 ML IV ONE (07:15)
[2018-01-07] MEDS: LORAZEPAM 0.5 MG TAB PO SCH ×2 (07:30→18:40)
[2018-01-07] MEDS: BALSAM PERU/CASTOR OIL 60 GM OINT...G. TP SCH ×2 (08:52→18:40)
[2018-01-07] MEDS: NYSTATIN 15 GM POWDER UD BTL TOP SCH ×2 (08:52→18:40)
[2018-01-07] MEDS: FUROSEMIDE INJ 10 MG/ML 4 ML VIAL IV SCH ×2 (09:16→20:32)
[2018-01-07] MEDS: MICAFUNGIN SODIUM 100 ML IV SCH (09:16)
[2018-01-07] MEDS: PANTOPRAZOLE 40 MG 10ML VIAL IV SCH ×2 (09:16→20:32)
[2018-01-07] MEDS ORDERED: HYDROCODONE/APAP 5MG-325MG TAB PO PRN (10:15)
[2018-01-07] MEDS ORDERED: FENTANYL 25 MCG/HR PATCH TOP SCH (10:15)
[2018-01-07] MEDS ORDERED: SODIUM CHLORIDE 0.9% 1000ML 1,000 ML ONE (14:00)
--- NOTE | 2018-01-07 16:47 | Progress Note ---
DATE: January 07, 2018 CARDIOLOGY PROGRESS NOTE SUBJECTIVE: Awake with vent support via trach. Set up ongoing to PEG today. PHYSICAL EXAMINATION VITALS: Temperature 98 degrees, heart rate 99, respiratory rate is 28, O2 sat 98%. Blood pressure was 139/76. GENERAL: In no acute distress. Trach connected to vent. CHEST: Decreased breath sounds bilaterally. CARDIOVASCULAR: Irregularly irregular rate and rhythm. Normal S1 and S2. No S3 or S4. Systolic ejection murmur I/. ABDOMEN: Soft. EXTREMITIES: Trace edema. STUDIES: Reviewed. Sodium 138, potassium 3.3, creatinine 0.5, glucose 164. Hemoglobin 10, platelets 246. ASSESSMENT 1. Acute respiratory failure in the setting of aspiration pneumonia, now status post trach. 2. Dysphagia, pending percutaneous endoscopic gastrostomy tube placement. 3. Advanced dementia. 4. Recent pulmonary embolism. 5. Paroxysmal atrial fibrillation. 6. Anemia. 7. Hypertension. RECOMMENDATIONS 1. Continue metoprolol IV for now, pending PEG tube placement. 2. Continue furosemide and repeat electrolytes as needed. 3. Continue amiodarone. 4. Resume anticoagulation after PEG tube placement and when hemostasis achieved. Job#: [id number] VAS
--- NOTE | 2018-01-07 17:11 | Operative Report ---
DATE OF PROCEDURE: January 07, 2018 PROCEDURE: Upper endoscopy with percutaneous endoscopic gastrostomy placement. ANESTHESIA: IV general. INDICATION: Oropharyngeal dysphagia. POSTOPERATIVE DIAGNOSES 1. Oropharyngeal dysphagia. 2. Percutaneous endoscopic gastrostomy placement. PROCEDURE IN DETAIL: Risks and benefits were discussed with the patient's family prior to the procedure. The family understands the risks of bleeding, infection, perforation as well as medication reaction. Consent was signed and secured. After the patient was sedated comfortably, an Olympus gastroscope was inserted in the stomach. . Esophagus was normal. Evaluation of the stomach in the forward and retroflexed fashion showed evidence of hiatal hernia, otherwise unremarkable. Duodenum appeared to be normal after obtaining good a light reflection as well as thumbprinting. The area was sterilized and lidocaine local anesthetic was given. A 0.5 cm of skin incision was made and trocar needle was entered into the stomach under direct vision. Wire was inserted into the stomach and new 20-Irish PEG was placed endoscopically. Placement was confirmed endoscopically. The outer bumper was seen at about 2 cm. Procedure was done without any problem. RECOMMENDATION: Continue the current care. Resume feeding at about 5 o'clock at 20 mL an hour. Follow clinically. Job#: [id number] CHELSIE cc:MD DR. KATELYN ZUNIGA
[2018-01-07] MEDS: AMIODARONE HCL 200 MG TAB PO SCH (18:39)
[2018-01-07] MEDS: BALSAM PERU/CASTOR OIL 5 GM OINT...G. TP SCH (18:40)
[2018-01-07] MEDS: ENOXAPARIN SOD INJ 40 MG/0.4 ML SYR SC SCH (18:40)
[2018-01-07] MEDS: INSULIN DETEMIR 100 UNIT/ML PEN SQ SCH (20:56)
[2018-01-08] VITALS (38 sets, daily range): BP systolic 91–134; BP diastolic 50–79
[2018-01-08] MEDS: ALBUTEROL/IPRATROPIUM 3 ML NEB NEB SCH ×3 (02:00→14:30)
[2018-01-08] MEDS: METOPROLOL TARTRATE INJ 1 MG/ML VIAL IV SCH ×2 (04:44→13:00)
[2018-01-08 04:58] LABS: BASOPHILS % 0.3 % (0.0-1.0); EOSINOPHILS # (AUTO) 0.1 (0.0-0.4); EOSINOPHILS % 0.9 % (0.0-6.0); HEMATOCRIT 31.1 % (38.2-49.6); HEMOGLOBIN 10.2 g/dL (14.0-18.0); LYMPHOCYTES # (AUTO) 0.6 (1.0-3.2); LYMPHOCYTES % 7.6 % (18.0-39.1); MEAN CORPUSCULAR HEMOGLOBIN 30.1 pg (28-32); MEAN CORPUSCULAR HGB CONC 32.8 g/dL (31-35); MEAN CORPUSCULAR VOLUME 91.7 fL (81-99); MONOCYTES # (AUTO) 0.2 (0.2-0.8); MONOCYTES % 2.5 % (4.4-11.3); NEUTROPHILS # (AUTO) 6.6 (2.1-6.9); NEUTROPHILS % 88.2 % (38.7-80.0); PLATELET COUNT 277 x10e3/uL (140-360); RED BLOOD COUNT 3.39 x10e6/uL (4.3-5.7); RED CELL DISTRIBUTION WIDTH 15.6 % (11.7-14.4)
[2018-01-08] MEDS: DEXTROSE 50% SYRINGE 50 ML IV PRN ×2 (05:08→07:22)
[2018-01-08 05:09] LABS: INR 1.34; PARTIAL THROMBOPLASTIN TIME 41.7 seconds (23.8-35.5); PROTHROMBIN TIME 15.6 seconds (11.9-14.5)
[2018-01-08] MEDS: INSULIN REGULAR, HUMAN 100 UNIT/1 ML 3ML VIAL SQ SCH ×3 (05:32→12:00)
[2018-01-08 08:06] LABS: ANION GAP 10.8 mmol/L (8-16); BLOOD UREA NITROGEN 20 mg/dL (7-26); BUN/CREATININE RATIO 40 (6-25); CALCIUM 8.3 mg/dL (8.4-10.2); CARBON DIOXIDE 31 mmol/L (22-29); CHLORIDE 103 mmol/L (98-107); EST GLOMERULAR FILTRATION RATE > 60 ML/MIN (60-); GLUCOSE 204 mg/dL (74-118); SODIUM 142 mmol/L (136-145)
[2018-01-08 08:09] LABS: POTASSIUM 2.8 mmol/L (3.5-5.1)
[2018-01-08] MEDS ORDERED: POTASSIUM CHLORIDE 20MEQ/100ML 300 ML IV ONE (08:45)
[2018-01-08] MEDS ORDERED: MAGNESIUM SULFATE 2GM/50ML 50 ML IV ONE (08:45)
[2018-01-08] MEDS ORDERED: COLLAGENASE 5 GM TUBE TOP SCH (09:00)
[2018-01-08] MEDS ORDERED: SPIRONOLACTONE 25 MG TAB PO ONE (09:05)
[2018-01-08] MEDS: LORAZEPAM 0.5 MG TAB PO SCH (09:06)
[2018-01-08] MEDS: BALSAM PERU/CASTOR OIL 60 GM OINT...G. TP SCH (10:16)
[2018-01-08] MEDS: MICAFUNGIN SODIUM 100 ML IV SCH (10:16)
[2018-01-08] MEDS: PANTOPRAZOLE 40 MG 10ML VIAL IV SCH (10:16)
[2018-01-08] MEDS: BALSAM PERU/CASTOR OIL 5 GM OINT...G. TP SCH (10:16)
[2018-01-08] MEDS: AMIODARONE HCL 200 MG TAB PO SCH (10:16)
[2018-01-08] MEDS: FUROSEMIDE INJ 10 MG/ML 4 ML VIAL IV SCH (10:17)
[2018-01-08] MEDS: NYSTATIN 15 GM POWDER UD BTL TOP SCH (10:17)
[2018-01-08] MEDS ORDERED: FENTANYL 50 MCG/HR PATCH TOP SCH (10:30)
--- NOTE | 2018-01-08 11:45 | Progress Note ---
DATE: January 08, 2018 CARDIOLOGY PROGRESS NOTE SUBJECTIVE: No complaints. Status post trach and PEG, on vent support. OBJECTIVE VITAL SIGNS: Temperature 97.4, heart rate 65, respiratory rate 24, blood pressure 134/66, and O2 sat 98% on vent support. MEDICATIONS 1. Metoprolol tartrate 2.5 mg every 8 hours IV. 2. Furosemide 40 mg IV daily. 3. Amiodarone 400 mg daily. STUDIES: White blood cell 7.4, hemoglobin 10.2, platelets 277. INR 1.3. Potassium 2.8, being repleted. Creatinine 0.5. Glucose 174. ASSESSMENT 1. Hypokalemia. 2. Status post percutaneous endoscopic gastrostomy tube. 3. Status post tracheostomy. 4. Dysphagia. 5. Advanced dementia 6. History of pulmonary embolism. 7. Paroxysmal atrial fibrillation. 8. Anemia. 9. Hypertension. 10. Acute respiratory failure in the setting of aspiration pneumonia, now with resolved small bowel obstruction. RECOMMENDATIONS: Continue current cardiovascular medications once PEG tube cleared for use. Transition metoprolol to p.o. Once okay with rest of treating physicians, resume Lovenox therapeutic dose for PE and AFib. Job#: [id number] CHELSIE
[2018-01-08] MEDS ORDERED: ENOXAPARIN SOD INJ 60 MG/0.6 ML SYR SC SCH (17:00)
[2018-01-08] MEDS ORDERED: CLONAZEPAM 0.5 MG TAB PO SCH (17:00)
[2018-01-08] MEDS ORDERED: ENOXAPARIN SOD INJ 40 MG/0.4 ML SYR SC SCH (17:00)
[2018-01-09] MEDS ORDERED: FUROSEMIDE INJ 10 MG/ML 4 ML VIAL IV SCH (09:00)
[2018-01-09] MEDS ORDERED: SPIRONOLACTONE 25 MG TAB GT SCH (09:00)
--- NOTE | 2018-01-19 17:51 | Consultation ---
DATE OF CONSULTATION: December 30, 2017 HEMATOLOGY CONSULTATION HISTORY OF PRESENT ILLNESS: Mr. Ta is an 82-year-old male who has been referred to me for possibility of DIC. The patient has had a history of pulmonary embolus in the past, small-bowel obstruction. The patient has been intubated. HISTORY OF PAST ILLNESSES: History of diabetes mellitus, history of CVA with right-sided hemiplegia, history of prostate cancer, history of GI bleed, history of bronchial pneumonia. SOCIAL HISTORY: Could not be obtained. FAMILY HISTORY: Could not be obtained. ALLERGIES: REPORTED TO [facility]. MEDICATIONS: At this time, 1. Albuterol. 2. Amiodarone. 3. Zosyn. 4. Potassium chloride. 5. Tylenol. 6. Dextrose. 7. Docusate. 8. Insulin. 9. Protonix. 10. Lovenox. 11. Metoprolol. REVIEW OF SYSTEMS: HEENT: Normal. CARDIAC: History of hypertension. RESPIRATORY: Arrest bronchopneumonia, intubation. GI: Normal. : History of cancer of the prostate. MUSCULOSKELETAL: History of right-sided hemiplegia. NEUROENDOCRINE: History of diabetes mellitus. PHYSICAL EXAMINATION: GENERAL: A moderately built male. Intubated. NECK: No palpable adenopathy. HEART: Tachycardic. LUNGS: Coarse crepitations. ABDOMEN: Distended. RECTAL: Exam could not be done. CENTRAL NERVOUS SYSTEM: Right-sided hemiplegia. LAB: Sodium of 142, potassium 2.5, chloride 106, CO2 29, BUN 24, creatinine 0.5, glucose 227. Hemoglobin of 8.5, hematocrit of 24.6, white count 12,200, platelets 144,000. INR 2.4. Bilirubin 0.4, SGOT 45, SGPT 55, alkaline phosphatase 82. IMPRESSION: 1. History of pulmonary embolism. 2. History of small-bowel obstruction. 3. Status post intubation. 4. History of hypertension. 5. History of hyperlipidemia. 6. History of diabetes mellitus. 7. History of right-sided cerebrovascular accident. 8. History of prostate cancer. 9. Gastrointestinal bleed. 10. Bronchopneumonia. 11. Anemia of chronic disease. 12. Hypokalemia. 13. Hypoproteinemia. 14. Hypoalbuminemia. 15. Acquired coagulopathy. PLAN, COMMENTS AND SUGGESTIONS: Suggest aggressive antibiotics after appropriate cultures. Prophylactic dose of Arixtra will be entertained once the patient stops the GI bleed. However, this also would be fairly complex to achieve this thing. I will confine myself to hematology. The patient has an extremely poor prognosis because of multiple comorbidities. This I have discussed with the patient's family. I also discussed with the patient's family to make him a DNR. Job#: [id number] EV cc:RAY BERGER MD
--- OUTSIDE RECORDS SUMMARY | 2018-01-28 04:21 | XMS REPORT | Clinical Summary ---
Author Author [facility] Address Unknown Phone Unavailable Care Team Providers Care Family Nurse Practitioner Name Role Phone PCP Unavailable Allergies Active Allergy Reactions Severity Noted Date Comments Salicylates Other (See Comments) High 05/26/2015 Constipated Milk Containing Products Diarrhea 04/13/2017 Current Medications Prescription Sig. Disp. Refills Start End Date Status Date metFORMIN (GLUCOPHAGE) Take 500 mg by mouth 2 Active 500 MG tablet (two) times daily with breakfast and dinner. tamsulosin (FLOMAX) 0.4 Take 0.4 mg by mouth Active mg Cp24 24 hr capsule daily. ramipril (ALTACE) 2.5 MG Take 2.5 mg by mouth Active capsule daily. apixaban (ELIQUIS) 5 mg Take 1 tablet (5 mg 0 12/07/19 04/13/20 Discontin Tab tablet total) by mouth 2 (two) 17 17 ued times daily. atorvastatin (LIPITOR) 80 Take 1 tablet (80 mg 0 12/07/19 12/07/19 MG tablet total) by mouth nightly. 17 18 cyanocobalamin 1000 MCG Take 1 tablet (1,000 mcg 0 12/07/19 12/07/19 tablet total) by mouth daily. 17 18 QUEtiapine (SEROQUEL) 25 Take 0.5 tablets (12.5 mg 0 12/07/19 MG tablet total) by mouth every 17 17 night as needed (agitation) for up to 30 days. 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 Coagulopathy (HCC) 04/12/2017 Essential hypertension 04/12/2017 Acute encephalopathy 04/12/2017 Traumatic subarachnoid hemorrhage with loss of consciousness of 30 minutes 04/11/2017 or less, initial encounter ([facility]) Delirium 12/06/2016 Vitamin B 12 deficiency 12/06/2016 PAF (paroxysmal atrial fibrillation) (HCC) 12/05/2016 Cerebrovascular accident (CVA), unspecified mechanism (HCC) 12/03/2016 Hypertension Diabetes mellitus ([facility]) Encounters Date Type Specialty Care Team Description 07/25/2017 Emergency Emergency Medicine Cy Jewell MD Fall, initial encounter (Primary Dx);Laceration of scalp, initial encounter;Nonintractable headache, unspecified chronicity pattern, unspecified headache type 06/14/2017 Emergency Emergency Medicine Altagracia Bojorquez MD Injury of head, initial encounter (Primary Dx) 04/11/2017 Hospital Intensive Care Altagracia Bojorquez MD Traumatic subarachnoid - Encounter Susana Marie hemorrhage with loss of 04/13/2017 MD Ebenezer consciousness of 30 minutes or less, initial encounter ([facility]) (Primary Dx);Coagulopathy ([facility]);Acute encephalopathy;Essential hypertension;Traumatic brain injury, without loss of consciousness, initial encounter ([facility]);PAF (paroxysmal atrial fibrillation) ([facility]) 04/11/2017 Orders Only General Internal Medicine after 12/18/2016 Immunizations Name Dates Previously Given Next Due Tdap 07/25/2017 Social History Tobacco Use Types Packs/Day Years Used Date Never Smoker Alcohol Use Drinks/Week oz/Week Comments No Sex Assigned at Date Recorded Not on file Last Filed Vital Signs Vital Sign Reading Time Taken Blood Pressure 121/71 07/25/2017 5:03 PM CDT Pulse 78 07/25/2017 5:03 PM CDT Temperature 36.7 C (98 F) 07/25/2017 5:03 PM CDT Respiratory Rate 18 07/25/2017 5:03 PM CDT Oxygen Saturation 95% 07/25/2017 5:03 PM CDT Inhaled Oxygen - - Concentration Weight 56.7 kg (125 lb) 07/25/2017 12:37 PM CDT Height 160 cm (5' 3") 07/25/2017 12:37 PM CDT Body Mass Index 22.14 07/25/2017 12:37 PM CDT Plan of Treatment Not on file Procedures Procedure Name Priority Date/Time Associated Diagnosis Comments IN RESUP NPTERF WND BODY Routine 07/25/2017 Results for this 2.6-7.5 CM 4:14 PM CDT procedure are in the results section. CRITICAL CARE Routine 04/11/2017 Results for this 7:54 PM RIP MACHINE OPERATOR procedure are in the results section. after 12/18/2016 Results * LACERATION REPAIR (07/25/2017 4:14 PM) Narrative Cy Jewell MD 07/25/20174:14 PM Lac Repair Date/Time: 07/25/2017 4:07 PM Performed by: CY JEWELL Authorized by: CY JEWELL Consent: Verbal consent obtained. Risks and benefits: risks, benefits and alternatives were discussed Consent given by: patient Patient identity confirmed: verbally with patient Body area: head/neck Location details: scalp Laceration length: 3 cm Anesthesia: local infiltration Anesthesia: Local Anesthetic: lidocaine 1% with epinephrine Anesthetic total: 2 mL Preparation: Patient was prepped and draped in the usual sterile fashion. Irrigation solution: saline Amount of cleaning: standard Skin closure: 5-0 Prolene Number of sutures: 4 Technique: simple Approximation: close Approximation difficulty: simple Patient tolerance: Patient tolerated the procedure well with no immediate complications Immediate Post-Procedure Note Assistants to the procedure: None Pre-procedure diagnosis: Laceration Post-procedure diagnosis: Laceration Procedures Performed: Lac Repair Specimens removed: None Complications: None Type of anesthesia: None Grafts or Implants: None * XR chest PA or AP 1 view in dept (07/25/2017 3:05 PM) Specimen Performing Laboratory GE RIS Narrative FINAL REPORT TECHNIQUE: Frontal view of the chest. INDICATION: 82-year-old man after fall. COMPARISON: Chest radiograph 04/11/2017. FINDINGS: LINES/TUBES: None. LUNGS: The lungs are well inflated and clear. PLEURA: No pneumothorax or significant pleural effusion. HEART AND MEDIASTINUM: The cardiomediastinal silhouette is within normal limits. Atherosclerotic calcifications in the tortuous thoracic aorta. SOFT TISSUES AND BONES: Degenerative changes of the visualized spine. No displaced fractures. Soft tissues are unremarkable. IMPRESSION: No acute abnormalities. Signed: Epi Mejia MD Report Verified Date/Time:07/25/2017 15:44:55 Reading Location: [facility] B1 C013Y CT Body Reading Room Procedure Note Interface, External Ris In - 07/25/2017 4:10 PM CDT FINAL REPORT TECHNIQUE: Frontal view of the chest. INDICATION: 82-year-old man after fall. COMPARISON: Chest radiograph 04/11/2017. FINDINGS: LINES/TUBES: None. LUNGS: The lungs are well inflated and clear. PLEURA: No pneumothorax or significant pleural effusion. HEART AND MEDIASTINUM: The cardiomediastinal silhouette is within normal limits. Atherosclerotic calcifications in the tortuous thoracic aorta. SOFT TISSUES AND BONES: Degenerative changes of the visualized spine. No displaced fractures. Soft tissues are unremarkable. IMPRESSION: No acute abnormalities. Signed: Epi Mejia MD Report Verified Date/Time: 07/25/2017 15:44:55 Reading Location: [facility] C[facility] Body Reading Room * CT spine cervical without IV contrast (07/25/2017 1:36 PM) Specimen Performing Laboratory [facility] [employer] Narrative FINAL REPORT CT cervical spine without contrast INDICATION: FALL s/p fall, head injury COMPARISON: No priors TECHNIQUE: Multiple axial CT images of the cervical spine were obtained without contrast. Sagittal and coronal 2D reconstructions were provided as well. This exam was performed according to our departmental dose optimization program which includes automated exposure control, adjustment of the mA and/or kV according to patient's size and/or use of iterative reconstructive technique. FINDINGS: Vertebral body height is normal. There is a 3 mm anterolisthesis at C4-C5, which is likely degenerative in etiology in the setting of advanced facet arthropathy. No evidence of acute fracture, or dislocation. Multilevel degenerative changes are present. No evidence of prevertebral edema, no hematoma or abnormal fluid collection. The visualized paraspinal soft tissues are unremarkable. There is bilateral carotid calcification. In the right lobe of thyroid, there is a 7 mm hypodense nodule. A 7 mm dense focus of calcification is also noted in the left lobe of thyroid. These findings are likely benign, no imaging follow-up is deemed necessary. Visualized lung apices are unremarkable. IMPRESSION: No acute fracture or dislocation identified in the cervical spine. Multilevel degenerative change. Mild anterolisthesis at C4-C5, likely degenerative etiology. Signed: Haylee Pendleton MD Report Verified Date/Time:07/25/2017 13:45:12 Reading Location: [facility] C013V Neuro Reading Room Procedure Note Interface, External Ris In - 07/25/2017 1:47 PM CDT FINAL REPORT CT cervical spine without contrast INDICATION: FALL s/p fall, head injury COMPARISON: No priors TECHNIQUE: Multiple axial CT images of the cervical spine were obtained without contrast. Sagittal and coronal 2D reconstructions were provided as well. This exam was performed according to our departmental dose optimization program which includes automated exposure control, adjustment of the mA and/or kV according to patient's size and/or use of iterative reconstructive technique. FINDINGS: Vertebral body height is normal. There is a 3 mm anterolisthesis at C4-C5, which is likely degenerative in etiology in the setting of advanced facet arthropathy. No evidence of acute fracture, or dislocation. Multilevel degenerative changes are present. No evidence of prevertebral edema, no hematoma or abnormal fluid collection. The visualized paraspinal soft tissues are unremarkable. There is bilateral carotid calcification. In the right lobe of thyroid, there is a 7 mm hypodense nodule. A 7 mm dense focus of calcification is also noted in the left lobe of thyroid. These findings are likely benign, no imaging follow-up is deemed necessary. Visualized lung apices are unremarkable. IMPRESSION: No acute fracture or dislocation identified in the cervical spine. Multilevel degenerative change. Mild anterolisthesis at C4-C5, likely degenerative etiology. Signed: Haylee Pendleton MD Report Verified Date/Time: 07/25/2017 13:45:12 Reading Location: [address] Neuro Reading Room * CT brain without IV contrast (07/25/2017 1:36 PM) Only the most recent of 3 results within the time period is included. Specimen Performing Laboratory [facility] RIS Narrative FINAL REPORT CT head without contrast. Reason for exam: s/p fall, head injury Comparisons: June 14, 2017 Discussion: Multiple axial CT images of the head are provided without contrast evaluated in brain and bone windows. This exam was performed according to our departmental dose optimization program which includes automated exposure control, adjustment of the mA and/or kV according to patient's size and/or use of iterative reconstructive technique. There is age related generalized brain volume loss. Nonspecific confluent supratentorial white matter hypodensity most likely reflects chronic small vessel ischemic disease. Tiny old infarcts are seen in the left frontal, parietal, occipital lobes and right cerebellar hemisphere. There is also a chronic lacunar infarct in the left thalamus. No evidence of acute territorial infarct. Intracranial vascular calcifications are present.There is no CT evidence of intracranial hemorrhage, mass-effect, hydrocephalus, shift, or extra-axial collections. The visualized orbital contents, bones and surrounding soft tissues are unremarkable. The visualized paranasal sinuses are clear. There is a small right mastoid effusion. Impressions: No CT evidence of acute intracranial process. Involutional and chronic ischemic changes. Signed: Haylee Pendleton MD Report Verified Date/Time:07/25/2017 13:32:22 Reading Location: [address] Neuro Reading Room Procedure Note Interface, External Ris In - 07/25/2017 1:36 PM CDT FINAL REPORT CT head without contrast. Reason for exam: s/p fall, head injury Comparisons: June 14, 2017 Discussion: Multiple axial CT images of the head are provided without contrast evaluated in brain and bone windows. This exam was performed according to our departmental dose optimization program which includes automated exposure control, adjustment of the mA and/or kV according to patient's size and/or use of iterative reconstructive technique. There is age related generalized brain volume loss. Nonspecific confluent supratentorial white matter hypodensity most likely reflects chronic small vessel ischemic disease. Tiny old infarcts are seen in the left frontal, parietal, occipital lobes and right cerebellar hemisphere. There is also a chronic lacunar infarct in the left thalamus. No evidence of acute territorial infarct. Intracranial vascular calcifications are present. There is no CT evidence of intracranial hemorrhage, mass-effect, hydrocephalus, shift, or extra-axial collections. The visualized orbital contents, bones and surrounding soft tissues are unremarkable. The visualized paranasal sinuses are clear. There is a small right mastoid effusion. Impressions: No CT evidence of acute intracranial process. Involutional and chronic ischemic changes. Signed: Haylee Pendleton MD Report Verified Date/Time: 07/25/2017 13:32:22 Reading Location: [address] Neuro Reading Room * CBC with platelet count + automated diff (07/25/2017 12:58 PM) Only the most recent of 5 results within the time period is included. Component Value Ref Range WBC 7.8 3.5 - 10.5 K/ L RBC 4.24 (L) 4.63 - 6.08 M/ L Hemoglobin 13.0 (L) 13.7 - 17.5 GM/DL Hematocrit 39.2 (L) 40.1 - 51.0 % MCV 92.5 (H) 79.0 - 92.2 fL MCH 30.7 25.7 - 32.2 pg MCHC 33.2 32.3 - 36.5 GM/DL RDW 13.2 11.6 - 14.4 % Platelets 265 150 - 450 K/CU MM MPV 9.9 9.4 - 12.4 fL nRBC 0 0 - 0 /100 WBC % Neutros 79 % % Lymphs 11 % % Monos 8 % % Eos 2 % % Baso 1 % # Neutros 6.19 (H) 1.78 - 5.38 K/ L # Lymphs 0.86 (L) 1.32 - 3.57 K/ L # Monos 0.59 0.30 - 0.82 K/ L # Eos 0.13 0.04 - 0.54 K/ L # Baso 0.05 0.01 - 0.08 K/ L Immature 0 0 - 1 % Granulocytes-Relative Specimen Performing Laboratory Blood - Line, Venous [facility] [address] [address] * CBC with platelet count + automated diff (07/25/2017 12:58 PM) Only the most recent of 5 results within the time period is included. Specimen Performing Laboratory Blood Narrative The following orders were created for panel order CBC with platelet count + automated diff. Procedure Abnormality Status --------- - ------ CBC with platelet count ...[[id number]]AbnormalFinal result Please view results for these tests on the individual orders. * Basic metabolic panel (Na, K+, Cl, CO2, Glu, Ca, BUN, Cr) (07/25/2017 12:58 PM ) Only the most recent of 4 results within the time period is included. Component Value Ref Range Sodium 140 136 - 145 meq/L Potassium 3.7 3.5 - 5.1 meq/L Chloride 104 98 - 107 meq/L CO2 26 22 - 29 meq/L BUN 20 7 - 21 mg/dL Creatinine 0.70 0.57 - 1.25 mg/dL Glucose 144 (H) 70 - 105 mg/dL Calcium 9.3 8.4 - 10.2 mg/dL EGFR 108Comment: ESTIMATED GFR IS NOT ACCURATE mL/min/1.73 sq m CREATININE CLEARANCE IN PREDICTING GLOMERULAR FILTRATION RATE. ESTIMATED GFR IS NOT APPLICABLE FOR DIALYSIS PATIENTS. Specimen Performing Laboratory Blood - Line, [place] [address] * Troponin I (not available at [facility]) (06/14/2017 11:24 AM) Only the most recent of 2 results within the time period is included. Component Value Ref Range Troponin I 0.01 0.00 - 0.03 ng/mL Specimen Performing Laboratory Blood [place] [id number] Narrative Troponin I (TnI) levels must be interpreted in the context of the presenting symptoms and the clinical findings. Elevated TnI levels indicate myocardial damage, but are not specific for ischemic heart disease. Elevated TnI levels are seen in patients with other cardiac conditions (including myocarditis and congestive heart failure), and slight TnI elevations occur in patients with other conditions, including sepsis, renal failure, acidosis, acute neurological disease, and persistent tachyarrhythmia. * Creatine Kinase (CK), Total and MB (not available at [facility] [place]) (06/14 11:24 AM) Component Value Ref Range Total CK 40 29 - 200 U/L CK-MB 0.8 0.0 - 6.6 ng/mL MB Relative Index 2.0 % Specimen Performing Laboratory Blood [address] [address] Narrative CK-MB Reference Range: <6.7Normal 6.7-10.0Borderline >10.0 Abnormal * RHYTHM STRIP - SCAN (04/15/2017 10:00 AM) * POC-Glucose meter (04/13/2017 11:59 AM) Only the most recent of 4 results within the time period is included. Component Value Ref Range POC-Glucose Meter 149 (H)Comment: TESTED AT [address] 70 - 110 mg /dL [facility] [address] Specimen Performing [place] [address] * Phosphorus (04/13/2017 4:57 AM) Only the most recent of 2 results within the time period is included. Component Value Ref Range Phosphorus 2.8 2.3 - 4.7 mg/dL Specimen Per[place] [address] * Magnesium (04/13/2017 4:57 AM) Only the most recent of 2 results within the time period is included. Component Value Ref Range Magnesium 1.7 1.6 - 2.6 mg/dL Specimen [place] [address] * CT brain without IV contrast portable (04/12/2017 12:01 PM) Specimen Performing Laboratory GE RIS Narrative FINAL REPORT CT head without contrast. Reason for exam: SAH evaluate progression Comparisons: April 11, 2017 Discussion: Multiple axial CT images of the head are provided without contrast evaluated in brain and bone windows. This exam was performed according to our departmental dose optimization program which includes automated exposure control, adjustment of the mA and/or kV according to patient's size and/or use of iterative reconstructive technique. A few tiny foci of subdural hemorrhage in both frontal region appear unchanged. No new intracranial hemorrhage is identified. As seen on the prior exam, there is involutional, and advanced chronic microvascular ischemic change. No mass effect, hydrocephalus, or shift. Right scalp edema/hematoma is again noted. No calvarial fracture. The visualized paranasal sinuses and mastoid air cells are unremarkable. Impressions: No new intracranial hemorrhage. Stable tiny foci of subarachnoid blood in bilateral frontal region. Signed: Haylee Pendleton MD Report Verified Date/Time:04/12/2017 13:28:13 Reading Location: [facility] C013V Neuro Reading Room Procedure Note Interface, External Ris In - 04/12/2017 1:30 PM RIP MACHINE OPERATOR FINAL REPORT CT head without contrast. Reason for exam: SAH evaluate progression Comparisons: April 11, 2017 Discussion: Multiple axial CT images of the head are provided without contrast evaluated in brain and bone windows. This exam was performed according to our departmental dose optimization program which includes automated exposure control, adjustment of the mA and/or kV according to patient's size and/or use of iterative reconstructive technique. A few tiny foci of subdural hemorrhage in both frontal region appear unchanged. No new intracranial hemorrhage is identified. As seen on the prior exam, there is involutional, and advanced chronic microvascular ischemic change. No mass effect, hydrocephalus, or shift. Right scalp edema/hematoma is again noted. No calvarial fracture. The visualized paranasal sinuses and mastoid air cells are unremarkable. Impressions: No new intracranial hemorrhage. Stable tiny foci of subarachnoid blood in bilateral frontal region. Signed: Haylee Pendleton MD Report Verified Date/Time: 04/12/2017 13:28:13 Reading Location: [facility] C013V Neuro Reading Room * Critical Care (04/11/2017 7:54 PM) Narrative Altagracia Bojorquez MD 04/11/20177:54 PM Critical Care Performed by: ALTAGRACIA BOJORQUEZ Authorized by: ALTAGRACIA BOJORQUEZ Total critical care time: 45 minutes Critical care time was exclusive of separately billable procedures and treating other patients and teaching time. Critical care was necessary to treat or prevent imminent or life-threatening deterioration of the following conditions: TRANSPORTATION PROJECT MANAGER failure or compromise. Critical care was time spent personally by me on the following activities: blood draw for specimens, development of treatment plan with patient or surrogate, discussions with consultants, discussions with primary provider, examination of patient, obtaining history from patient or surrogate, ordering and performing treatments and interventions, ordering and review of laboratory studies, ordering and review of radiographic studies, pulse oximetry, re-evaluation of patient's condition and review of old charts. * ECG 12 lead (04/11/2017 5:24 PM) Specimen Performing Laboratory GE MUSE Narrative Ventricular Rate 73 BPM Atrial Rate 73 BPM P-R Interval 138 ms QRS Duration 80 ms Q-T Interval 382 ms QTC Calculation(Bazett) 420 ms P [place] 56 degrees R [place] 52 degrees T [place] 60 degrees Normal sinus rhythm with sinus arrhythmia Normal ECG When compared with ECG of 03-DEC-2016 16:16, Criteria for Septal infarct are no longer Present(Lead V2 is no longer misplaced) Confirmed by MD DEVINE YOCHAI ([id number]) on 04/12/2017 6:25:57 AM Procedure Note Interface, External Ris In - 04/12/2017 6:26 AM RIP MACHINE OPERATOR Ventricular Rate 73 BPM Atrial Rate 73 BPM P-R Interval 138 ms QRS Duration 80 ms Q-T Interval 382 ms QTC Calculation(Bazett) 420 ms P [place] 56 degrees R [place] 52 degrees T [place] 60 degrees Normal sinus rhythm with sinus arrhythmia Normal ECG When compared with ECG of 03-DEC-2016 16:16, Criteria for Septal infarct are no longer Present (Lead V2 is no longer misplaced) Confirmed by MD DEVINE YOCHAI ([id number]) on 04/12/2017 6:25:57 AM * PT/aPTT (04/11/2017 4:53 PM) Component Value Ref Range Protime 14.3 11.7 - 14.7 seconds INR 1.1 <=5.9 PTT 24.7 22.5 - 36.0 seconds Specimen Performing Laboratory Blood - Line, Venous [address] [address] Narrative RECOMMENDED COUMADIN/WARFARIN INR THERAPY RANGES STANDARD DOSE: 2.0 - 3.0 Includes: PROPHYLAXIS for venous thrombosis, systemic embolization; TREATMENT for venous thrombosis and/or pulmonary embolus. HIGH RISK: Target INR is 2.5-3.5 for patients with mechanical heart valves. * BUN (04/11/2017 4:53 PM) Component Value Ref Range BUN 17 7 - 21 mg/dL Specimen Performing Laboratory Blood - Line, Venous [address] [address] * Glucose (04/11/2017 4:53 PM) Component Value Ref Range Glucose 184 (H) 70 - 105 mg/dL Specimen Performing Laboratory Blood - Line, Venous [address] [address] * Creatinine, serum (04/11/2017 4:53 PM) Component Value Ref Range Creatinine 0.73 0.57 - 1.25 mg/dL EGFR 103Comment: ESTIMATED GFR IS NOT ACCURATE mL/min/1.73 sq m CREATININE CLEARANCE IN PREDICTING GLOMERULAR FILTRATION RATE. ESTIMATED GFR IS NOT APPLICABLE FOR DIALYSIS PATIENTS. Specimen Performing Laboratory Blood - Line, Venous [address] [address] * Electrolytes (04/11/2017 4:53 PM) Component Value Ref Range Sodium 136 136 - 145 meq/L Potassium 3.5 3.5 - 5.1 meq/L Chloride 103 98 - 107 meq/L CO2 22 22 - 29 meq/L Specimen Performing Laboratory Blood - Line, Venous [address] [address] * XR chest 1 view portable / bedside (04/11/2017 4:45 PM) Specimen Performing Laboratory GE RIS Narrative FINAL REPORT AP view of the chest dated 04/11/2017 CLINICAL INFORMATION: Syncope Comment:Heart is normal in size. Thoracic aorta is ectatic. Pulmonary vasculature is unremarkable. Lungs are clear. No pulmonary infiltrate or pleural effusion is present. Impression:No active cardiopulmonary disease. Signed: Sugar Cooper MD Report Verified Date/Time:04/11/2017 16:51:21 Reading Location: [facility] C013Y CT Body Reading Room Procedure Note Interface, External Ris In - 04/11/2017 5:05 PM RIP MACHINE OPERATOR FINAL REPORT AP view of the chest dated 04/11/2017 CLINICAL INFORMATION: Syncope Comment: Heart is normal in size. Thoracic aorta is ectatic. Pulmonary vasculature is unremarkable. Lungs are clear. No pulmonary infiltrate or pleural effusion is present. Impression: No active cardiopulmonary disease. Signed: Sugar Cooper MD Report Verified Date/Time: 04/11/2017 16:51:21 Reading Location: [facility] B1 C013Y CT Body Reading Room * PERIPHERAL VASCULAR REPORT - SCAN (02/18/2017 10:50 AM) after 12/18/2016
--- OUTSIDE RECORDS SUMMARY | 2018-01-28 04:21 | XMS REPORT ---
Author [facility] Address Unknown Phone Unavailable Care Team Providers Care Bleach Chlorinator Name Role Phone RAY BERGER Unavailable Unavailable CY BECKER Unavailable Unavailable IWONA BJOORQUEZ Unavailable Unavailable BINU ARGUETA Unavailable Unavailable Payers Payer Name Policy Type Policy Number Effective Date Expiration Date Problems This patient has no known problems. Allergies, Adverse Reactions, Alerts This patient has no known allergies or adverse reactions. Medications This patient has no known medications. Results Test Description Test Time Test Comments Text Results Atomic Results Result Comments CHEST SINGLE (PORTABLE) 2018-01-06 11:33:00 [place] [address] Patient Name: JARVIS NESS MR #: [id number] : 1935 Age/Sex: 82/ M Req #: [id number] Adm Physician: RAY BERGER MD Ordered by: JUNITO MCKEON MD Report #: [id number] Location: ICU Room/Bed: ICU [facility] Procedure: [id number] DX/CHEST SINGLE ( PORTABLE) Exam Date: 01/06/18 Exam Time: 1020 REPORT STATUS: Signed PROCEDURE: CHEST SINGLE (PORTABLE) COMPARISON: 2017. INDICATIONS: INTUBATION FINDINGS: See conclusion CONCLUSION: 1. Interval removal of endotracheal tube and placement of tracheostomy, which projects over the mid trachea. Stable right subclavian central venous catheter and enteric tube. 2. Worsening patchy bilateral air space consolidations which may reflect edema or multifocal pneumonia. Small bilateral pleural effusions. Dictated by: Junito Valenzuela M.D. on 01/06/2018 at 11:33 Electronically approved by: Junito Valenzuela M.D. on 01/06/2018 at 11:33 Dictated By: JUNITO VALENZUELA MD 1133 Transcribed By: MICHAEL on 01/06/18 1133 COPY TO: JUNITO MCKEON MD CHEST SINGLE (PORTABLE) 2018-01-02 01:26:00 [place] [address] Patient Name: JARVIS NESS MR #: [id number] : 1935 Age/Sex: 82/ M Req #: [id number] Adm Physician: RAY BERGER MD Ordered by: JUNITO DEVINE MD Report #: [id number] Location: ICU Room/Bed: ICU [facility] Procedure: [id number] DX/CHEST SINGLE (PORTABLE) Exam Date: 01/02/18 Exam Time: 0110 REPORT STATUS: Signed CHEST SINGLE (PORTABLE), 01/02/2018 7:00 AM Technique: CHEST SINGLE (PORTABLE) Comparison: Previous day Clinical history: Shortness of breath Findings: See impression. Lung apices are partly included. Impression: 1. Lines/Tubes: Stable ET tube about 3 cm above the sandeep, subdiaphragmatic NG tube, right subclavian central venous catheter over the distal SVC. 2. Persistent bilateral airspace opacities, likely infectious, and small effusions. Signed by: Dr Nuha Hawley MD on 01/02/2018 1:27 AM Dictated By: NUHA HAWLEY MD 6 Transcribed By: NAHOMY on 01/02 COPY TO: JUNITO DEVINE MD CHEST SINGLE (PORTABLE) 2018-01-01 09:59:00 [place] [address] Patient Name: JARVIS NESS MR #: [id number] : 1935 Age/Sex: 82/ M Req #: [id number] Adm Physician: RAY BERGER MD Ordered by: JUNITO DEVINE MD Report #: [id number] Location: ICU Room/Bed: ICU [facility] Procedure: [id number] DX/CHEST SINGLE (PORTABLE) Exam Date: 01/01/18 Exam Time: 0915 REPORT STATUS: Signed PROCEDURE: CHEST SINGLE (PORTABLE) COMPARISON: 12/30/2017. INDICATIONS: SHORTNESS OF BREATH FINDINGS: Endotracheal tube, enteric tube, and right subclavian central venous catheter are stable in position. Slight interval worsening patchy bilateral consolidations likely reflective of multifocal pneumonia. Small bilateral pleural effusions. Stable cardiomediastinal contour with tortuosity and atherosclerotic calcification of the thoracic aorta. No acute osseous abnormality. CONCLUSION: Stable position of support lines and tubes. Worsening multifocal air space disease, likely infectious, with small bilateral pleural effusions. Dictated by: Junito Valenzuela M.D. on 01/01/2018 at 9:59 Electronically approved by: Junito Valenzuela M.D. on 01/01/2018 at 9: 59 Dictated By: JUNITO VALENZUELA MD 8 Transcribed By: MICHAEL on 01/01/18958 COPY TO: JUNITO DEVINE MD CHEST SINGLE (PORTABLE) 2017-12-30 06:16:00 [facility] [address] [place] [address] Patient Name: JARVIS NESS MR #: [id number] : 1935 Age/Sex: 82/ M Req #: [id number] Adm Physician: RAY BERGER MD Ordered by: JUNITO DEVINE MD Report #: [id number] Location: ICU Room/Bed: ICU [facility] Procedure: [id number] DX/CHEST SINGLE (PORTABLE) Exam Date: 12/30/17 Exam Time: 529 REPORT STATUS: Signed CHEST SINGLE (PORTABLE), 12/30/2017 6:00 AM Technique: CHEST SINGLE (PORTABLE) Comparison: Previous day Clinical history: Respiratory failure Findings: See impression. Left lung apex is partially excluded. Impression: 1. Lines/Tubes: Stable ET tube about 4 cm above the sandeep, subdiaphragmatic NG tube, right subclavian central venous catheter over the distal SVC. 2. Persistent bilateral airspace opacities, likely infectious, and small effusions. Signed by: Dr Nuha Hawley MD on 12/30/2017 6:18 AM Dictated By: NUHA HAWLEY MD 7 Transcribed By: NAHOMY on 12/30/17617 COPY TO: JUNITO DEVINE MD CHEST SINGLE (PORTABLE) 2017-12-29 15:30:00 [facility] [address] [place] [address] Patient Name: JARVIS NESS MR #: [id number] : 1935 Age/Sex: 82/ M Req #: [id number] Adm Physician: RAY BERGER MD Ordered by: JUNITO DEVINE MD Report #: [id number] Location: ICU Room/Bed: ICU [facility] Procedure: [id number] DX/CHEST SINGLE (PORTABLE) Exam Date: 12/29/17 Exam Time: 1431 REPORT STATUS: Signed EXAMINATION: CHEST SINGLE (PORTABLE) INDICATION: S resp failure COMPARISON: Chest x-ray 12/29/2017 FINDINGS: AP view TUBES and LINES: Right subclavian line with tip in mid SVC is unchanged. Endotracheal tube tip is 4.8 cm above the sandeep, unchanged. Nasogastric tube courses into the stomach. LUNGS: Slight improvement in diffuse interstitial and alveolar opacities. PLEURA: Unchanged tiny bilateral pleural effusions. HEART AND MEDIASTINUM: The cardiomediastinal silhouette is unremarkable. BONES AND SOFT TISSUES: No acute osseous lesion. Soft tissues are unremarkable. UPPER ABDOMEN: No free air under the diaphragm. IMPRESSION: Slight improvement in bilateral interstitial and patchy alveolar airspace opacities. This is most likely infectious etiology. Signed by: Dr. Osmel Cormier M.D. on 12/29/2017 3:32 PM Dictated By: OSMEL CORMIER MD 153 Transcribed By: NAHOMY on 12/29/17 153 COPY TO: JUNITO DEVINE MD CHEST SINGLE (PORTABLE) 2017-12-29 06:33:00 [facility] [address] [place] [id number] Patient Name: JARVIS NESS MR #: [id number] : 1935 Age/Sex: 82/ M Req #: [id number] Adm Physician: RAY BERGER MD Ordered by: JUNITO DEVINE MD Report #: [id number] Location: ICU Room/Bed: ICU [facility] Procedure: [id number] DX/CHEST SINGLE (PORTABLE) Exam Date: 12/29/17 Exam Time: 0520 REPORT STATUS: Signed CHEST SINGLE (PORTABLE), 12/29/2017 7:00 AM Technique: CHEST SINGLE (PORTABLE) Comparison: 12/28/2017 Clinical history: Shortness of breath Findings: Stable cardiac silhouette, bones, soft tissues. Impression: 1. Lines/Tubes: Stable right central venous catheter over the distal SVC, ET tube 2.9 cm above the sandeep and subdiaphragmatic NG tube. 2. Unchanged bilateral airspace opacities, most likely infectious, with small effusions. Signed by: Dr Nuha Hawley MD on 12/29/2017 6:35 AM Dictated By: NUHA HAWLEY MD 4 Transcribed By: NAHOMY on 12/29/17634 COPY TO: JUNITO DEVINE MD ABDOMEN-1VIEW ([facility]) 2017-12-29 06:27:00 [place] [address] Patient Name: JARVIS NESS MR #: [id number] : 1935 Age/Sex: 82/M Req #: [id number] Adm Physician: RAY BERGER MD Ordered by : LEO CELAYA MD Report #: [id number] Location: ICU Room/Bed: ICU 194-1 Procedure: [id number] DX/ABDOMEN-1VIEW (KUB) Exam Date : 12/29/17 Exam Time: 05 REPORT STATUS: Signed ABDOMEN-1VIEW (KUB) Clinical history: Ileus Technique: AP view abdomen Comparison: 12/27/2017 Findings: The hemidiaphragms are excluded from view. NG tube not visualized and may be out of the [id number]. Contrast is again noted within the fundus. Paucity of small bowel gas. Prostate brachytherapy beats. Vascular calcifications. Impression: Persistent paucity of small bowel gas, which limits sensitivity for obstruction. Signed by: Dr Nuha Hawley MD on 12/29/2017 6:33 AM Dictated By: NUHA HAWLEY MD 2 Transcribed By: NAHOMY on 12/29/17632 COPY TO: LEO CELAYA MD CHEST SINGLE (PORTABLE) 2017-12-28 06:49:00 [place] [address] Patient Name: JARVIS NESS MR #: [id number] : 1935 Age/Sex: 82/ M Req #: [id number] Adm Physician: RAY BERGER MD Ordered by: JUNITO DEVINE MD Report #: [id number] Location: ICU Room/Bed: ICU 194- Procedure: DX/CHEST SINGLE (PORTABLE) Exam Date: 12/28/17 Exam Time: 0530 REPORT STATUS: Signed EXAM: CHEST SINGLE (PORTABLE), AP 1 view INDICATION: Shortness of breath COMPARISON: AP view of the chest December 27, 2017 FINDINGS: LINES/TUBES: Stable right subclavian central line, endotracheal tube and nasal/orogastric tube. LUNGS: Stable bilateral airspace opacities. PLEURA: Small bilateral pleural effusions HEART AND MEDIASTINUM: Normal size and contour. BONES AND SOFT TISSUES: No acute findings. IMPRESSION: No interval change. Signed by: Dr. Haylee Ibarra M.D. on 12/28/2017 6:50 AM Dictated By: HAYLEE IBARRA MD 9 Transcribed By: NAHOMY on 12/28/17649 COPY TO: JUNITO DEVINE MD CHEST SINGLE (PORTABLE) 2017-12-27 06:53:00 [place] [address] Patient Name: JARVIS NESS MR #: [id number] : 1935 Age/Sex: 82/ M Req #: [id number] Adm Physician: RAY BERGER MD Ordered by: SASHA ADLER MD Report #: [id number] Location: ICU Room/Bed: [place] [address] Procedure: DX/CHEST SINGLE ( PORTABLE) Exam Date: Exam Time: REPORT STATUS: Signed EXAM: CHEST SINGLE (PORTABLE), AP 1 view INDICATION: Intubated COMPARISON: AP view of the chest December 26, 2017 FINDINGS: LINES/TUBES: Stable right approach PICC, endotracheal tube and nasogastric tube. LUNGS: Persistent bilateral airspace opacities PLEURA: Small bilateral pleural effusions HEART AND MEDIASTINUM: Normal size and contour. BONES AND SOFT TISSUES: No acute findings. IMPRESSION: Stable exam Signed by: Dr. Haylee Ibarra M.D. on 12/27/2017 6:54 AM Dictated By: HAYLEE IBARRA MD 3 Transcribed By: NAHOMY on 12/27/17653 COPY TO: SASHA ADLER MD ABDOMEN-1VIEW (KUB) 2017-12-27 06:51:00 [place] [address] Patient Name: JARVIS NESS MR #: [id number] : 1935 Age/Sex: 82/M Req #: [id number] Adm Physician: RAY BERGER MD Ordered by : LEO CELAYA MD Report #: [id number] Location: ICU Room/Bed: ICU [facility] Procedure: [id number] DX/ABDOMEN-1VIEW (KUB) Exam Date : Exam Time: REPORT STATUS: Signed EXAM: ABDOMEN-1VIEW (KUB), supine INDICATION: ileus, small bowel obstruction COMPARISON: None FINDINGS: LINES/TUBES: Nasogastric tube in the body of the stomach. BOWEL PATTERN: General paucity of bowel gas. Contrast in the fundus of the stomach SOFT TISSUES: No abnormal calcifications. LUNG BASES: Right lower lobe atelectasis. BONES: No acute findings. IMPRESSION: General paucity of bowel gas. Small bowel obstruction with fluid- filled loops is not excluded. Signed by: Dr. Haylee Ibarra M.D. on 12/27/2017 6:53 AM Dictated By: HAYLEE IBARRA MD Transcribed By: NAHOMY on 12/27/17652 COPY TO: LEO CELAYA MD ABDOMEN-1VIEW ([facility]) 2017-12-26 14:58:00 [place] [address] Patient Name: JARVIS NESS MR #: [id number] : 1935 Age/Sex: 82/M Req #: [id number] Adm Physician: RAY BERGER MD Ordered by : SASHA ADLER MD Report #: [id number] Location: ICU Room/Bed: ICU [facility] Procedure: [id number] DX/ABDOMEN-1VIEW ([facility]) Exam Date: Exam Time: REPORT STATUS: Signed EXAM: Abdomen 1 Views INDICATION: COMPARISON: CT abdomen and pelvis 12/24/2017 on KUB 12/24/2017 FINDINGS: TUBES AND LINES: Distal NG -OG tube overlying the gastric body, which is partially filled with contrast. Moderate of stool in the colon. Diffuse posterior bowel with gas. No renal calculi. No abnormal soft tissue masses. Moderate degenerative changes in the lumbar spine and pelvis. Diffuse vascular calcifications. IMPRESSION: 1. NG/OG tube within the gastric body. 2. Diffuse bowel CT of the bowel gas may be consistent with persistent small bowel obstruction. Signed by: Dr. Sparkle Pedersen M.D. on 2017 3:01 PM Dictated By: SPARKLE PEDERSEN MD 1501 Transcribed By: NAHOMY on 12/26/17 1501 COPY TO: SASHA ADLER MD CHEST SINGLE (PORTABLE) 2017-12-26 06:45:00 [place] [address] Patient Name: JARVIS NESS MR #: [id number] : 1935 Age/Sex: 82/ M Req #: [id number] Adm Physician: RAY BERGER MD Ordered by: SASHA ADLER MD Report #: [id number] Location: ICU Room/Bed: ICU [facility] Procedure: [id number] DX/CHEST SINGLE ( PORTABLE) Exam Date: Exam Time: REPORT STATUS: Signed EXAM: CHEST SINGLE (PORTABLE), AP 1 view INDICATION: Intubated COMPARISON: AP view of the chest December 25, 2017 FINDINGS: LINES/TUBES: Stable position endotracheal tube, nasal/orogastric tube and right subclavian line. LUNGS: Stable bilateral airspace opacities. PLEURA: Small bilateral pleural effusions. HEART AND MEDIASTINUM: Normal size and contour. BONES AND SOFT TISSUES: No acute findings. IMPRESSION: No interval change. Signed by: Dr. Haylee Ibarra M.D. on 12/26/2017 6:46 AM Dictated By: HAYLEE IBARRA MD 5 Transcribed By: NAHOMY on 645 COPY TO: SASHA ADLER MD CHEST SINGLE (PORTABLE) 2017-12-25 09:28:00 [place] [address] Patient Name: JARVIS NESS MR #: [id number] : 1935 Age/Sex: 82/ M Req #: [id number] Adm Physician: RAY BERGER MD Ordered by: SASHA ADLER MD Report #: [id number] Location: ICU Room/Bed: ICU [facility] Procedure: [id number] DX/CHEST SINGLE ( PORTABLE) Exam Date: 12/25/17 Exam Time: 0910 REPORT STATUS: Signed PROCEDURE: A single AP view of the chest. COMPARISON: Chest radiograph 12/24/17. INDICATIONS: INTUBATED FINDINGS: Lines/tubes: Endotracheal tube terminates 2.8 cm above the sandeep. Enteric tube courses into the stomach, the tip is not seen. Right subclavian central line terminates at the cavoatrial junction. Overlying EKG leads. Lungs: Bilateral multifocal consolidations, right greater than left, with increasing consolidations in the upper lungs. Pleura: Possible small bilateral pleural effusion. No evidence of pneumothorax. Heart and mediastinum: The cardiomediastinal silhouette is unchanged. Bones: No acute bony abnormality. Upper abdomen: Contrast is noted in the stomach. IMPRESSION: Lines and tubes as above. No evidence of pneumothorax. Bilateral consolidation, increasing in the upper lungs, likely reflecting multifocal pneumonia. Dictated by: LYSSA MANN M.D. on 12/25/2017 at 9:28 Electronically approved by: LYSSA MANN M.D. on 12/25/2017 at 9:28 Dictated By: LYSSA MANN MD 7 Transcribed By: MICHAEL on 12/25/17927 COPY TO: SASHA ADLER MD [facility] 2017-12-24 15:48:00 [facility] [address] [place] [address] Patient Name: JARVIS NESS MR #: [id number] : 1935 Age/Sex: 82/M Req #: [id number] Adm Physician: RAY BERGER MD Ordered by : SASHA ADLER MD Report #: [id number] Location: ICU Room/Bed: ICU [facility] Procedure: [id number] DX/ABDOMEN-1VIEW (KUB) Exam Date: 12/24/17 Exam Time: 1523 REPORT STATUS: Signed Abdomen/KUB INDICATION: Obstruction COMPARISON: CT abdomen/ pelvis 12/24/2017 at 0259 hours FINDINGS: Portable, supine image obtained at 1503 hours. The image is motion degraded. An enteric tube identified on CT is barely visible by x-ray. Surgical clips in the pelvis are stable. Bowel: Enteric contrast remains predominantly in the stomach. There is a small amount of enteric contrast in small bowel loops in the left hemiabdomen. Small bowel loops remain dilated to a diameter of 4 cm. No pneumatosis. Organomegaly: None. Free air: None. Lung bases: Poorly visualized Bones: Unremarkable IMPRESSION: No progression of enteric contrast from the stomach and persistent dilatation of the small bowel consistent with obstruction. No pneumoperitoneum. Signed by: Dr. Caitlin Vega MD on 12/24/2017 3:51 PM Dictated By: CAITLIN VEGA MD 3817 Transcribed By: NAHOMY on 12/24/17 6733 COPY TO: SASHA ADLER MD CT ABDOMEN/PELVIS W 2017-12-24 03:16:00 [place] [address] Patient Name: JARVIS NESS MR #: [id number] : 1935 Age/Sex: 82/M Req #: [id number] Adm Physician: RAY BERGER MD Ordered by : KATELYN ROBLEDO MD Report #: [id number] Location: ICU Room/Bed: ICU [facility] Procedure: [id number] CT/CT ABDOMEN/PELVIS W Exam Date: Exam Time: REPORT STATUS: Signed EXAM: CT ABDOMEN AND PELVIS with IV CONTRAST DATE: 12/24/2017 12:12 AM Time stamp on Exam: 0259 hours INDICATION: Small bowel obstruction COMPARISON: None TECHNIQUE: The abdomen and pelvis were scanned using a multidetector helical scanner. Coronal and sagittal reformations were obtained. Dose modulation, iterative reconstruction, and/or weight based adjustment of the mA /kV was utilized to reduce the radiation dose to as low as reasonably achievable. Routine protocol performed. IV Contrast: 100 cc Isovue-370 Oral Contrast: None FINDINGS: LOWER THORAX: Bilateral centrilobular consolidation/ground glass opacities in the dependent portions of the lungs. Trace bilateral pleural effusions. LIVER: No masses BILIARY: The gallbladder is unremarkable. No ductal dilation. SPLEEN: Not visualized secondary to streak artifact from fundal barium. PANCREAS: Partially visualized, unremarkable ADRENALS: No nodules KIDNEYS: Symmetric perfusion. No enhancing masses. No hydronephrosis. GI TRACT: Barium from prior modified barium swallow is in the fundus of the stomach. The stomach is distended. The small bowel is dilated up to 3.7 cm with obstruction most likely in the lower mid abdomen. The terminal ileum is decompressed. Normal appearance of the colon. Fluid is seen in the partially visualized distal esophagus. VESSELS: Advanced atherosclerotic changes. PERITONEUM/ RETROPERITONEUM: Small volume ascites. No free peritoneal air. 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 BLADDER: The majority of the bladder, which is decompressed by a Jones catheter is within a right inguinal hernia. SOFT TISSUES: There is a small bowel containing umbilical hernia, which does not appear to be the cause of the obstruction. There are few foci of air in the subcutaneous tissues of the anterior right abdomen, most consistent with injection site. BONES: No suspicious bone lesions. Grade 1 anterolisthesis of L4 with respect to L5. IMPRESSION: 1. Small bowel obstruction with the level of obstruction at the mid to distal ileum, most likely secondary to adhesions. The stomach is distended. The nasogastric tube terminates in the body of the stomach. 2. Findings in the dependent portions of the lung is most likely related to aspiration. 3. Trace bilateral pleural effusions and small volume ascites. 4. The majority of the bladder (which is decompressed) is within a right inguinal hernia. Signed by: Dr. Haylee Ibarra M.D. on 12/24/2017 3:36 AM Dictated By: HAYLEE IBARRA MD 5 COPY TO: KATELYN ROBLEDO MD CHEST SINGLE (PORTABLE) 2017-12-24 02:43:00 [place] [address] Patient Name: JARVIS NESS MR #: [id number] : 1935 Age/Sex: 82/ M Req #: [id number] Adm Physician: RAY BERGER MD Ordered by: KATELYN ROBLEDO MD Report #: [id number] Location: ICU Room/Bed: ICU 194 Procedure: [id number] DX/CHEST SINGLE ( PORTABLE) Exam Date: 12/24/17 Exam Time: 0225 REPORT STATUS: Signed EXAM: CHEST SINGLE (PORTABLE), AP 1 view INDICATION: Central line placement COMPARISON: AP view of the chest December 23, 2017 FINDINGS: LINES/TUBES: Interval placement of right subclavian line with tip at the expected location of the atriocaval junction. Interval placement of nasogastric tube with tip in expected location of the body of the stomach. The endotracheal tube terminates 2 cm above the sandeep. LUNGS: Persistent bilateral airspace opacities, right greater than left. PLEURA: No effusions or pneumothorax. HEART AND MEDIASTINUM: Normal size and contour. BONES AND SOFT TISSUES: Persistent dilated loops of small bowel. IMPRESSION: Interval placement of right subclavian central line. No pneumothorax. Interval placement of nasogastric tube with tip in expected location of the body of the stomach. Persistent findings of small bowel obstruction. Persistent bilateral consolidations. Signed by: Dr. Haylee Ibarra M.D. on 12/24/2017 2:45 AM Dictated By: HAYLEE IBARRA MD 4 Transcribed By: NAHOMY on 12/24/17244 COPY TO: KATELYN ROBLEDO MD CHEST SINGLE (PORTABLE) 2017-12-24 00:09:00 [place] [address] Patient Name: JARVIS NESS MR #: [id number] : 1935 Age/Sex: 82/ M Req #: [id number] Adm Physician: RAY BERGER MD Ordered by: KATELYN ROBLEDO MD Report #: [id number] Location: ICU Room/Bed: ICU [facility] Procedure: [id number] DX/CHEST SINGLE ( PORTABLE) Exam Date: 12/23/17 Exam Time: 2340 REPORT STATUS: Signed EXAM: CHEST SINGLE (PORTABLE), AP 1 view INDICATION: Status post intubation COMPARISON: AP view of the chest December 23, 2017 FINDINGS: LINES/TUBES: Interval placement of endotracheal tube with tip at the level of the snadeep. LUNGS: Persistent consolidations in each lung, predominantly on the right. PLEURA: Possible small lateral pleural effusions. HEART AND MEDIASTINUM: Normal size and contour. BONES AND SOFT TISSUES: Partially visualized distended stomach and bowel. IMPRESSION : Interval placement of endotracheal tube with tip at the level of the sandeep. Consolidations in each lung, greatest on the right could represent aspiration or multifocal pneumonia. Partially visualized distended stomach and bowel. This study was discussed with the ER physician November at 1212 hours. Signed by: Dr. Haylee Ibarra M.D. on 2017 12:19 AM Dictated By: HAYLEE IBARRA MD Transcribed By: NAHOMY on 12/24/1718 COPY TO: KATELYN ROBLEDO MD ABDOMEN COMP INCL UPR or 2017-12-23 21:58:00 [place] [address] Patient Name: JARVIS NESS MR #: [id number] : 1935 Age/Sex: 82/ M Req #: [id number] Adm Physician: RAY BERGER MD Ordered by: SASHA ADLER MD Report #: [id number] Location: MED/SURG3 Room /Bed: [facility] Procedure: [id number] DX/ABDOMEN COMP INCL UPR or DECUB Exam Date: 12/23/17 Exam Time: 2144 REPORT STATUS: Signed EXAM: ABDOMEN COMP INCL UPR or DECUB, portable supine and erect INDICATION: Shortness of breath, abdominal distention COMPARISON: None FINDINGS: LINES/TUBES: None BOWEL PATTERN: Marked distention of the stomach and proximal small bowel. SOFT TISSUES: Limited evaluation secondary to motion artifact. Oral contrast seen within the stomach. Generator pack projects over the left upper abdomen. LUNG BASES: Poorly visualized secondary to motion artifact. BONES: No acute findings. IMPRESSION: Marked distention of the stomach and proximal bowel consistent with small bowel obstruction. Signed by: Dr. Haylee Ibarra M.D. on 12/23/2017 9:59 PM Dictated By: HAYLEE IBARRA MD 58 Transcribed By: NAHOMY on 12/23/172158 COPY TO: SASHA ADLER MD CHEST SINGLE (PORTABLE) 2017-12-23 21:55:00 [place] [address] Patient Name: JARVIS NESS MR #: [id number] : 1935 Age/Sex: 82/ M Req #: [id number] Adm Physician: RAY BERGER MD Ordered by: SASHA ADLER MD Report #: [id number] Location: MED/SURG3 Room /Bed: [facility] Procedure: [id number] DX/CHEST SINGLE ( PORTABLE) Exam Date: 12/23/17 Exam Time: 2144 REPORT STATUS: Signed EXAM: CHEST SINGLE (PORTABLE), AP 1 view INDICATION: Shortness of breath, abdominal distention COMPARISON: AP view of the chest December 19, 2017 FINDINGS: LINES/TUBES: None LUNGS: New consolidations in each lung base, right greater than left. PLEURA: No effusions or pneumothorax. HEART AND MEDIASTINUM: Normal size and contour. BONES AND SOFT TISSUES: Partially visualized distended stomach. IMPRESSION: 1. Findings concerning for multifocal pneumonia or aspiration. 2. Partially visualized distended the stomach. Signed by: Dr. Haylee Ibarra M.D. on 12/23/2017 9:59 PM Dictated By: HAYLEE IBARRA MD 58 Transcribed By : NAHOMY on 12/23/172158 COPY TO: SASHA ADLER MD MODIFIED BA. SWALLOW 2017-12-22 15:06:00 [place] [address] Patient Name: JARVIS NESS MR #: [id number] : 1935 Age/Sex: 82/M Req #: [id number] Adm Physician: RAY BERGER MD Ordered by : RAY BERGER MD Report #: [id number] Location: [facility] Room/Bed: [facility] Procedure: [id number] DX/MODIFIED BA. SWALLOW Exam Date: 12/22/17 Exam Time: 1200 REPORT STATUS: Signed EXAM: Modified barium swallow INDICATION: Dysphagia COMPARISON: None FINDINGS This examination was conducted in conjunction with speech pathologist. Patient was given, by mouth, liquids and solids of various consistencies. Examination showed premature spillage over base of tongue, vallecula and piriform sinuses with all consistencies. No laryngeal penetration or aspiration. Moderate vallecular, pyriform sinus residue following swallows of all consistencies. Fluoro time: 02:59 minutes IMPRESSION: <No penetration or aspiration. Please see speech pathology report for detailed description and recommendations.> Signed by : Dr. Vinay Blank M.D. on 12/22/2017 3:07 PM Dictated By: VINAY BLANK MD 1507 Transcribed By: NAHOMY on 12/22/17 1507 COPY TO: RAY BERGER MD US ABDOMEN COMPLETE 2017-12-20 14:23:00 [place] [address] Patient Name: JARVIS NESS MR #: [id number] : 1935 Age/Sex: 82/M Req #: [id number] Adm Physician: RAY BERGER MD Ordered by : LEO CELAYA MD Report #: [id number] Location: [facility] Room/Bed: [facility] Procedure: [id number] US/US ABDOMEN COMPLETE Exam Date: 12/20/17 Exam Time: 1320 REPORT STATUS: Signed EXAM: Complete Abdominal Ultrasound INDICATION: Abdominal pain. . Anorexia/ ca prostate COMPARISON: None. TECHNIQUE: Transverse and longitudinal images of the upper abdomen were obtained. FINDINGS: Liver: Size: 13.8 cm in the right midclavicular line, normal Appearance: Mild coarsened echotexture., smooth contour Mass: No focal masses Spleen : Size: 8.2 cm in length, normal Echogenicity: Normal Mass: No focal masses Gallbladder: Stones/Sludge: None Wall: 0.34 cm which is borderline thickened, likely due to underdistention. Appearance: No wall thickening, pericholecystic fluid or hydrops. Sonographic Hale's Sign: Negative Bile Ducts: Intrahepatic Ducts: No dilatation Extrahepatic Ducts: Common bile duct measures 0.4 cm, no dilatation Pancreas: Not visualized due to shadowing from overlying bowel gas. Kidneys: Length: Right 11.2 cm Left 9.6 cm Echogenicity: Normal Collecting System: No hydronephrosis Stone: None Cyst/Mass: None Vessels: Aorta: Visualized portions are normal Inferior Vena Cava: Not visualized due to shadowing from overlying bowel gas. Main Portal Vein: 0.9 cm, normal size with hepatopetal flow. Free Fluid: No ascites or pleural effusion IMPRESSION: No acute abdominal abnormality. Signed by: Dr. Ibrahima Rodriguez M.D. on 12/20/2017 2:25 PM Dictated By: NATHALIE RODRIGUEZ MD, MD 142 COPY TO: LEO CELAYA MD CT CHEST W 2017-12-19 17:52:00 [place] [address] Patient Name: JARVIS NESS MR #: [id number] : 1935 Age/Sex: 82/M Req #: [id number] Adm Physician: Ordered by: KATELYN ROBLEDO MD Report #: [id number] Location: ER Room/Bed: Procedure: [id number] CT/CT CHEST W Exam Date: Exam Time: REPORT STATUS: Signed EXAM: CT Chest WITH contrast 12/19/2017 4: 12 PM INDICATION: Shortness of breath, weakness COMPARISON: Same-day chest radiograph TECHNIQUE: Chest was scanned utilizing a multidetector helical scanner from the lung apex through the level of the adrenal glands after the uneventful administration of IV contrast. Coronal and sagittal reformations were obtained. Pulmonary embolus protocol was performed. IV CONTRAST: 100 mL of Isovue-370 RADIATION DOSE: Total DLP: 397.31 mGy*cm Estimated effective dose: (DLP x 0.014 x size factor) mSv COMPLICATIONS: None FINDINGS: LINES/ TUBES: None. PULMONARY ARTERIES: Technically adequate examination. There is a filling defect in a right lower lobe segmental pulmonary artery (series 2, image 68), consistent with pulmonary embolus. No other pulmonary emboli are seen. The main pulmonary artery is normal in caliber, measuring 2.2 cm. LUNGS AND AIRWAYS: Biapical and bibasilar subpleural scarring. An irregular nodular opacity in the right upper lobe (series 3, image 40) measures 1.1 cm. No focal consolidations. Tiny centrilobular nodules in the superior segment of the left lower lobe (series 3, image 51) and in the right upper lobe ( image 58) measure up to about 3 mm and are likely inflammatory. The airways are normal. PLEURA: The pleural spaces are clear. HEART AND MEDIASTINUM:No mediastinal, hilar or axillary lymphadenopathy. The heart is normal in size. There is a small pericardial effusion dense atherosclerotic calcifications of the coronary arteries and thoracic aorta. The visualized thyroid gland is normal. UPPER ABDOMEN: Limited evaluation of the upper abdomen. There are dense atherosclerotic calcifications of the aorta and its branches. Thickening of the adrenal glands without discrete nodule may be due to hyperplasia. BONES: No aggressive lytic or blastic lesions. Multilevel degenerative changes of the thoracic spine. SOFT TISSUES: Unremarkable. IMPRESSION: 1. Small right lower lobe segmental pulmonary embolus.This finding was discussed with Dr. Robledo at 6:08 PM on 12/19. 2. 1.1 cm irregular nodular opacity in the right upper lobe. This may be inflammatory. Recommend follow-up CT in 3-6 months to ensure resolution. 3. Biapical and bibasilar scarring. Signed by: Dr. Sunny Weiner M.D. on 12/19/2017 6:09 PM Dictated By: SUNNY WEINER MD 08 Transcribed By: NAHOMY on 12/19/171808 COPY TO: KATELYN ROBLEDO MD CHEST SINGLE (PORTABLE) 2017-12-19 14:06:00 [facility] [address] [place] [address] Patient Name: JARVIS NESS MR #: [id number] : 1935 Age/Sex: 82/ M Req #: [id number] Adm Physician: Ordered by: KATELYN ROBLEDO MD Report #: [id number] Location: ER Room/Bed: Procedure: [id number] DX/CHEST SINGLE (PORTABLE) Exam Date: 12/19/17 Exam Time: 1340 REPORT STATUS: Signed EXAMINATION: CHEST SINGLE (PORTABLE) 12/19/2017 1:00 PM COMPARISON: None INDICATION: Cough, shortness of breath DISCUSSION: LINES: None. LUNGS: Mild biapical scarring. No focal consolidation PLEURA : Blunting of the left costophrenic angle may be related to pleural scarring. No pneumothorax. HEART AND MEDIASTINUM: Normal heart size. Moderate tortuosity of the thoracic aorta. BONES AND SOFT TISSUES: No acute osseous lesion. Multilevel degenerative changes of the thoracic spine IMPRESSION: Biapical pleural/parenchymal scarring as well as pleural scarring in the left lung base. No evidence of infection or pulmonary edema. Sunny Weiner MD Signed by: Dr. Sunny Weiner M.D. on 12/19/2017 2 :09 PM Dictated By: SUNNY WEINER MD 08 Transcribed By: NAHOMY on 12/19/171408 COPY TO: KATELYN ROBLEDO MD RAD, CHEST, PA OR AP, 1 VIEW 2017-07-25 15:44:00 Reason for exam:->FALL FINAL REPORT TECHNIQUE: Frontal view of the chest. INDICATION: 82-year-old man after fall. COMPARISON: Chest radiograph 2016. FINDINGS: LINES/TUBES: None. LUNGS: The lungs are well inflated and clear. PLEURA: No pneumothorax or significant pleural effusion. HEART AND MEDIASTINUM: The cardiomediastinal silhouette is within normal limits. Atherosclerotic calcifications in the tortuous thoracic aorta. SOFT TISSUES AND BONES: Degenerative changes of the visualized spine. No displaced fractures. Soft tissues are unremarkable. IMPRESSION:No acute abnormalities. Signed: Epi Larose MDReport Verified Date/Time: 07/25/2017 15:44:55 Reading Location: [facility] C013Y CT Body Reading Room , SPINE, CERVICAL, WO CONTRAST 2017-07-25 13:45:00 Reason for exam:-> FALLWhat is the patient's sedation requirement?->No Sedation FINAL REPORT CT cervical spine without contrast INDICATION: FALLs/p fall, head injury COMPARISON: No priors TECHNIQUE: Multiple axial CT images of the cervical spine were obtained without contrast. Sagittal and coronal 2D reconstructions were provided as well. This exam was performed according to our departmental dose optimization program which includes automated exposure control , adjustment of the mA and/or kV according [...] C4-C5, likely degenerative etiology. Signed: Haylee Pendleton MDReport Verified Date/Time: 07/25/2017 13:45:12 Reading Location: [facility] C013V Neuro Reading Room Electronically signed by: HAYLEE PENDLETON M.D. on 01:45 PM BASIC METABOLIC PANEL 2017-07-25 13:40:00 SODIUM (BEAKER) (test zmxo=718) 140 meq/L 136-145 POTASSIUM (BEAKER) (test eztg=551) 3.7 meq/L 3.5-5.1 CHLORIDE (BEAKER) (test imkn=256) 104 meq/L 98-107 CO2 (BEAKER) (test ebjj=963) 26 meq/L 22-29 BLOOD UREA NITROGEN (BEAKER) (test xzma=653) 20 mg/dL 7-21 CREATININE (BEAKER) (test yspn=698) 0.70 mg/dL 0.57-1.25 GLUCOSE RANDOM (BEAKER) (test kmfx=836) 144 mg/dL 70-105 CALCIUM (BEAKER) (test gcej=631) 9.3 mg/dL 8.4-10.2 EGFR (BEAKER) (test bgqj=1365) 108 mL/min/1.73 sq m ESTIMATED GFR IS NOT ACCURATE CREATININE CLEARANCE IN PREDICTING GLOMERULAR FILTRATION RATE. ESTIMATED GFR IS NOT APPLICABLE FOR DIALYSIS PATIENTS. CT, BRAIN, WITHOUT [id number] 13:32:00FINAL REPORT CT head without contrast. Reason for [...] and chronic ischemic changes. Signed: Haylee Pendleton MDReport Verified Date/Time: 07/25/2017 13:32:22 Reading Location: [facility] Neuro Reading Room 01: 32 PM CBC W/PLT COUNT & AUTO [id number] 13:07:00* Test Item Value Reference Range Comments WHITE BLOOD CELL COUNT (BEAKER) (test tgvk=044) 7.8 K/ L 3.5-10.5 RED BLOOD CELL COUNT (BEAKER) (test xpsy=076) 4.24 M/ L 4.63-6.08 HEMOGLOBIN (BEAKER) (test tsji=221) 13.0 GM/DL 13.7-17.5 HEMATOCRIT (BEAKER) (test turk=037) 39.2 % 40.1-51.0 MEAN CORPUSCULAR VOLUME (BEAKER) (test fxix=716) 92.5 fL 79.0-92.2 MEAN CORPUSCULAR HEMOGLOBIN (BEAKER) (test tmry=972) 30.7 pg 25.7-32.2 MEAN CORPUSCULAR HEMOGLOBIN CONC (BEAKER) (test ssea=683) 33.2 GM/DL 32.3- 36.5 RED CELL DISTRIBUTION WIDTH (BEAKER) (test nudj=280) 13.2 % 11.6-14.4 PLATELET COUNT (BEAKER) (test rrsr=363) 265 K/CU MM 150-450 MEAN PLATELET VOLUME (BEAKER) (test fcpo=751) 9.9 fL 9.4-12.4 NUCLEATED RED BLOOD CELLS (BEAKER) (test lzsk=273) 0 /100 WBC 0-0 NEUTROPHILS RELATIVE PERCENT (BEAKER) (test rkot=590) 79 % LYMPHOCYTES RELATIVE PERCENT (BEAKER) (test dajx=600) 11 % MONOCYTES RELATIVE PERCENT (BEAKER) (test fijy=048) 8 % EOSINOPHILS RELATIVE PERCENT (BEAKER) (test lwmz=305) 2 % BASOPHILS RELATIVE PERCENT (BEAKER) (test rqpy=030) 1 % NEUTROPHILS ABSOLUTE COUNT (BEAKER) (test agoh=726) 6.19 K/ L 1.78-5.38 LYMPHOCYTES ABSOLUTE COUNT (BEAKER) (test lddp=920) 0.86 K/ L 1.32-3.57 MONOCYTES ABSOLUTE COUNT (BEAKER) (test kctd=973) 0.59 K/ L 0.30-0.82 EOSINOPHILS ABSOLUTE COUNT (BEAKER) (test bdts=075) 0.13 K/ L 0.04-0.54 BASOPHILS ABSOLUTE COUNT (BEAKER) (test vplv=362) 0.05 K/ L 0.01-0.08 IMMATURE GRANULOCYTES-RELATIVE PERCENT (BEAKER) (test ridd=5773) 0 % 0-1 CREATINE KINASE (CK), TOTAL AND [id number] 11:58:00* Test Item Value Reference Range Comments CREATINE KINASE TOTAL (BEAKER) (test jpev=939) 40 U/L 29-200 CREATINE KINASE-MB (BEAKER) (test ckzl=338) 0.8 ng/mL 0.0-6.6 CREATINE KINASE-MB INDEX (BEAKER) (test jumx=889) 2.0 % CK-MB Reference Range:<6.7 Normal6.7-10.0 Borderline>10.0 AbnormalTROPONIN [id number] 11:58:00* Test Item Value Reference Range Comments TROPONIN I (BEAKER) (test qsza=317) 0.01 ng/mL 0.00-0.03 Troponin I (TnI) levels must be interpreted [...] failure, acidosis, acute neurological disease, and persistent tachyarrhythmia.BASIC METABOLIC [id number] 11:51:00 * Test Item Value Reference Range Comments SODIUM (BEAKER) (test tbky=688) 136 meq/L 136-145 POTASSIUM (BEAKER) (test scrk=297) 3.4 meq/L 3.5-5.1 CHLORIDE (BEAKER) (test ldze=712) 100 meq/L 98-107 CO2 (BEAKER) (test mhee=358) 27 meq/L 22-29 BLOOD UREA NITROGEN (BEAKER) (test nkuf=625) 12 mg/dL 7-21 CREATININE (BEAKER) (test qekw=539) 0.71 mg/dL 0.57-1.25 GLUCOSE RANDOM (BEAKER) (test mmqz=887) 112 mg/dL 70-105 CALCIUM (BEAKER) (test wyth=873) 9.1 mg/dL 8.4-10.2 EGFR (BEAKER) (test sdrx=7233) 106 mL/min/1.73 sq m ESTIMATED GFR IS NOT ACCURATE CREATININE CLEARANCE IN PREDICTING GLOMERULAR FILTRATION RATE. ESTIMATED GFR IS NOT APPLICABLE FOR DIALYSIS PATIENTS. CBC W/PLT COUNT & AUTO [id number] 11:34:00* Test Item Value Reference Range Comments WHITE BLOOD CELL COUNT (BEAKER) (test tmxl=988) 7.2 K/ L 3.5-10.5 RED BLOOD CELL COUNT (BEAKER) (test ryal=367) 4.24 M/ L 4.63-6.08 HEMOGLOBIN (BEAKER) (test ivfo=489) 13.0 GM/DL 13.7-17.5 HEMATOCRIT (BEAKER) (test idph=672) 38.7 % 40.1-51.0 MEAN CORPUSCULAR VOLUME (BEAKER) (test lafd=305) 91.3 fL 79.0-92.2 MEAN CORPUSCULAR HEMOGLOBIN (BEAKER) (test xnvo=352) 30.7 pg 25.7-32.2 MEAN CORPUSCULAR HEMOGLOBIN CONC (BEAKER) (test rpnj=365) 33.6 GM/DL 32.3- 36.5 RED CELL DISTRIBUTION WIDTH (BEAKER) (test eedo=534) 13.4 % 11.6-14.4 PLATELET COUNT (BEAKER) (test nqcu=400) 241 K/CU MM 150-450 MEAN PLATELET VOLUME (BEAKER) (test zayp=888) 9.4 fL 9.4-12.4 NUCLEATED RED BLOOD CELLS (BEAKER) (test tyuk=360) 0 /100 WBC 0-0 NEUTROPHILS RELATIVE PERCENT (BEAKER) (test mmkh=041) 79 % LYMPHOCYTES RELATIVE PERCENT (BEAKER) (test wwat=898) 10 % MONOCYTES RELATIVE PERCENT (BEAKER) (test zfsg=273) 8 % EOSINOPHILS RELATIVE PERCENT (BEAKER) (test kkik=006) 3 % BASOPHILS RELATIVE PERCENT (BEAKER) (test rcni=528) 1 % NEUTROPHILS ABSOLUTE COUNT (BEAKER) (test mqht=460) 5.65 K/ L 1.78-5.38 LYMPHOCYTES ABSOLUTE COUNT (BEAKER) (test iuad=641) 0.71 K/ L 1.32-3.57 MONOCYTES ABSOLUTE COUNT (BEAKER) (test zoie=303) 0.55 K/ L 0.30-0.82 EOSINOPHILS ABSOLUTE COUNT (BEAKER) (test ruzg=966) 0.21 K/ L 0.04-0.54 BASOPHILS ABSOLUTE COUNT (BEAKER) (test nign=184) 0.04 K/ L 0.01-0.08 IMMATURE GRANULOCYTES-RELATIVE PERCENT (BEAKER) (test xplc=2668) 0 % 0-1 CT, BRAIN, WITHOUT [id number] 11:22:00Reason for exam:->FALLWhat is the patient's sedation requirement?->No SedationFINAL REPORT CT head without contrast. Reason for exam: Head trauma, headacheFALL Comparisons: April 12, 2017 Discussion: Multiple axial CT images of [...] likely reflects chronic small vessel ischemic disease. 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 Intracranial vascular calcifications are present. No evidence of acute intracranial hemorrhage. Previously seen tiny foci of subarachnoid blood in the bilateral frontal region have resolved. No evidence of mass effect , hydrocephalus, shift or extra-axial collections. The visualized orbital contents, bones and surrounding soft tissues are unremarkable. The visualized paranasal sinuses and mastoid air cells are unremarkable. Impressions: No CT evidence of acute intracranial process. Involutional, and chronic microvascular ischemic changes. Signed: Haylee Pendletonort Verified Date/Time: 06/14/2017 11:22:22 Reading Location: [facility] C013V Neuro Reading Room -GLUCOSE [id number] 12:04:00* Test Item Value Reference Range Comments POC-GLUCOSE METER (BEAKER) (test orcx=8094) 149 mg/dL 70-110 TESTED AT [place] [id number] [facility] [address] [id number] 06:20:00* Test Item Value Reference Range Comments PHOSPHORUS (BEAKER) (test amvy=576) 2.8 mg/dL 2.3-4.7 [id number] 06:20:00* Test Item Value Reference Range Comments MAGNESIUM (BEAKER) (test ucwy=838) 1.7 mg/dL 1.6-2.6 BASIC METABOLIC [id number] 06:20:00* Test Item Value Reference Range Comments SODIUM (BEAKER) (test yymn=220) 135 meq/L 136-145 POTASSIUM (BEAKER) (test jnxd=835) 3.6 meq/L 3.5-5.1 CHLORIDE (BEAKER) (test ynlo=294) 105 meq/L 98-107 CO2 (BEAKER) (test sada=584) 21 meq/L 22-29 BLOOD UREA NITROGEN (BEAKER) (test bnkw=772) 5 mg/dL 7-21 CREATININE (BEAKER) (test bryg=120) 0.62 mg/dL 0.57-1.25 GLUCOSE RANDOM (BEAKER) (test jlnq=998) 86 mg/dL 70-105 CALCIUM (BEAKER) (test vxbh=492) 9.0 mg/dL 8.4-10.2 EGFR (BEAKER) (test xuqb=7835) 124 mL/min/1.73 sq m ESTIMATED GFR IS NOT ACCURATE CREATININE CLEARANCE IN PREDICTING GLOMERULAR FILTRATION RATE. ESTIMATED GFR IS NOT APPLICABLE FOR DIALYSIS PATIENTS. POCT-GLUCOSE [id number] 06:15:00* Test Item Value Reference Range Comments POC-GLUCOSE METER (BEAKER) (test mpkd=8713) 83 mg/dL 70-110 TESTED AT [facility] [address] [facility] [address] CBC W/PLT COUNT & AUTO [id number] 05:22:00* Test Item Value Reference Range Comments WHITE BLOOD CELL COUNT (BEAKER) (test gmkr=476) 7.8 K/ L 3.5-10.5 RED BLOOD CELL COUNT (BEAKER) (test voes=158) 4.33 M/ L 4.63-6.08 HEMOGLOBIN (BEAKER) (test fqjc=890) 13.3 GM/DL 13.7-17.5 HEMATOCRIT (BEAKER) (test yqat=989) 39.5 % 40.1-51.0 MEAN CORPUSCULAR VOLUME (BEAKER) (test volc=148) 91.2 fL 79.0-92.2 MEAN CORPUSCULAR HEMOGLOBIN (BEAKER) (test sqcg=237) 30.7 pg 25.7-32.2 MEAN CORPUSCULAR HEMOGLOBIN CONC (BEAKER) (test ysvj=768) 33.7 GM/DL 32.3- 36.5 RED CELL DISTRIBUTION WIDTH (BEAKER) (test skhw=736) 13.1 % 11.6-14.4 PLATELET COUNT (BEAKER) (test qynl=038) 217 K/CU MM 150-450 MEAN PLATELET VOLUME (BEAKER) (test hdnt=078) 9.9 fL 9.4-12.4 NUCLEATED RED BLOOD CELLS (BEAKER) (test fkzt=697) 0 /100 WBC 0-0 NEUTROPHILS RELATIVE PERCENT (BEAKER) (test vxve=795) 72 % LYMPHOCYTES RELATIVE PERCENT (BEAKER) (test tcqy=739) 12 % MONOCYTES RELATIVE PERCENT (BEAKER) (test yqrj=498) 9 % EOSINOPHILS RELATIVE PERCENT (BEAKER) (test fmgi=203) 6 % BASOPHILS RELATIVE PERCENT (BEAKER) (test qnqp=115) 1 % NEUTROPHILS ABSOLUTE COUNT (BEAKER) (test ybgo=916) 5.60 K/ L 1.78-5.38 LYMPHOCYTES ABSOLUTE COUNT (BEAKER) (test deuh=901) 0.93 K/ L 1.32-3.57 MONOCYTES ABSOLUTE COUNT (BEAKER) (test kfbr=613) 0.69 K/ L 0.30-0.82 EOSINOPHILS ABSOLUTE COUNT (BEAKER) (test zkwr=855) 0.46 K/ L 0.04-0.54 BASOPHILS ABSOLUTE COUNT (BEAKER) (test qofv=889) 0.06 K/ L 0.01-0.08 IMMATURE GRANULOCYTES-RELATIVE PERCENT (BEAKER) (test xplj=0325) 0 % 0-1 POCT-GLUCOSE [id number] 00:23:00* Test Item Value Reference Range Comments POC-GLUCOSE METER (BEAKER) (test uvaq=1792) 83 mg/dL 70-110 TESTED AT [facility] [address] [facility] [address] POCT-GLUCOSE [id number] 18:58:00* Test Item Value Reference Range Comments POC-GLUCOSE METER (BEAKER) (test sbio=1363) 122 mg/dL 70-110 TESTED AT [facility] [address] [facility] [address] CT BRAIN WITHOUT IV CONTRAST - [id number] 13:28:00Reason for exam:->SAH evaluate progressionFINAL REPORT CT head without contrast. Reason for [...] sinuses and mastoid air cells are unremarkable. Impressions : No new intracranial hemorrhage. Stable tiny foci of subarachnoid blood in bilateral frontal region. Signed: Haylee Pendleton Verified Date/Time: 2016 13:28:13 Reading Location: [address] Neuro Reading Room [id number] 05:32:00* Test Item Value Reference Range Comments MAGNESIUM (BEAKER) (test hrms=892) 1.7 mg/dL 1.6-2.6 Specimen slightly hemolyzed [id number] 05:32:00* Test Item Value Reference Range Comments PHOSPHORUS (BEAKER) (test abyn=001) 2.8 mg/dL 2.3-4.7 Specimen slightly hemolyzed BASIC METABOLIC [id number] 05:32:00* Test Item Value Reference Range Comments SODIUM (BEAKER) (test crgz=905) 138 meq/L 136-145 POTASSIUM (BEAKER) (test rgnq=672) 3.6 meq/L 3.5-5.1 Specimen slightly hemolyzed CHLORIDE (BEAKER) (test ukgq=722) 105 meq/L 98-107 CO2 (BEAKER) (test bipi=024) 24 meq/L 22-29 BLOOD UREA NITROGEN (BEAKER) (test vjjk=065) 13 mg/dL 7-21 CREATININE (BEAKER) (test gsgb=994) 0.66 mg/dL 0.57-1.25 Specimen slightly hemolyzed GLUCOSE RANDOM (BEAKER) (test bvqv=696) 113 mg/dL 70-105 CALCIUM (BEAKER) (test awdt=326) 9.1 mg/dL 8.4-10.2 EGFR (BEAKER) (test whtg=4386) 116 mL/min/1.73 sq m ESTIMATED GFR IS NOT ACCURATE CREATININE CLEARANCE IN PREDICTING GLOMERULAR FILTRATION RATE. ESTIMATED GFR IS NOT APPLICABLE FOR DIALYSIS PATIENTS. CBC W/PLT COUNT & AUTO [id number] 05:23:00* Test Item Value Reference Range Comments WHITE BLOOD CELL COUNT (BEAKER) (test mijk=581) 8.1 K/ L 3.5-10.5 RED BLOOD CELL COUNT (BEAKER) (test ahea=597) 4.18 M/ L 4.63-6.08 HEMOGLOBIN (BEAKER) (test djbd=256) 12.8 GM/DL 13.7-17.5 HEMATOCRIT (BEAKER) (test mzpa=140) 38.4 % 40.1-51.0 MEAN CORPUSCULAR VOLUME (BEAKER) (test qyyp=229) 91.9 fL 79.0-92.2 MEAN CORPUSCULAR HEMOGLOBIN (BEAKER) (test msoj=121) 30.6 pg 25.7-32.2 MEAN CORPUSCULAR HEMOGLOBIN CONC (BEAKER) (test ldks=853) 33.3 GM/DL 32.3- 36.5 RED CELL DISTRIBUTION WIDTH (BEAKER) (test wjiw=710) 13.4 % 11.6-14.4 PLATELET COUNT (BEAKER) (test hkbs=520) 226 K/CU MM 150-450 MEAN PLATELET VOLUME (BEAKER) (test wnwg=852) 10.1 fL 9.4-12.4 NUCLEATED RED BLOOD CELLS (BEAKER) (test eron=836) 0 /100 WBC 0-0 NEUTROPHILS RELATIVE PERCENT (BEAKER) (test oesr=972) 77 % LYMPHOCYTES RELATIVE PERCENT (BEAKER) (test hghs=019) 9 % MONOCYTES RELATIVE PERCENT (BEAKER) (test tdgn=381) 9 % EOSINOPHILS RELATIVE PERCENT (BEAKER) (test qlnh=558) 3 % BASOPHILS RELATIVE PERCENT (BEAKER) (test ivtl=016) 1 % NEUTROPHILS ABSOLUTE COUNT (BEAKER) (test cgyo=080) 6.22 K/ L 1.78-5.38 LYMPHOCYTES ABSOLUTE COUNT (BEAKER) (test fodh=876) 0.76 K/ L 1.32-3.57 MONOCYTES ABSOLUTE COUNT (BEAKER) (test jjat=982) 0.76 K/ L 0.30-0.82 EOSINOPHILS ABSOLUTE COUNT (BEAKER) (test tetc=959) 0.26 K/ L 0.04-0.54 BASOPHILS ABSOLUTE COUNT (BEAKER) (test eyhc=818) 0.04 K/ L 0.01-0.08 IMMATURE GRANULOCYTES-RELATIVE PERCENT (BEAKER) (test fstd=1059) 0 % 0-1 TROPONIN [id number] 17:57:00* Test Item Value Reference Range Comments TROPONIN I (BEAKER) (test xgjw=991) 0.02 ng/mL 0.00-0.03 Troponin I (TnI) levels must be interpreted [...] failure, acidosis, acute neurological disease, and persistent tachyarrhythmia.[id number] 17:49:00* Test Item Value Reference Range Comments BLOOD UREA NITROGEN (BEAKER) (test ebvs=170) 17 mg/dL 7-21 [id number] 17:49:00* Test Item Value Reference Range Comments SODIUM (BEAKER) (test twrq=690) 136 meq/L 136-145 POTASSIUM (BEAKER) (test vmpw=502) 3.5 meq/L 3.5-5.1 CHLORIDE (BEAKER) (test mpgf=331) 103 meq/L 98-107 CO2 (BEAKER) (test gxju=509) 22 meq/L 22-29 [id number] 17:49:00* Test Item Value Reference Range Comments CREATININE (BEAKER) (test lgzw=347) 0.73 mg/dL 0.57-1.25 EGFR (BEAKER) (test jfkj=6193) 103 mL/min/1.73 sq m ESTIMATED GFR IS NOT ACCURATE CREATININE CLEARANCE IN PREDICTING GLOMERULAR FILTRATION RATE. ESTIMATED GFR IS NOT APPLICABLE FOR DIALYSIS PATIENTS. [id number] 17:49:00* Test Item Value Reference Range Comments GLUCOSE RANDOM (BEAKER) (test gnmh=111) 184 mg/dL 70-105 [id number] 17:27:00* Test Item Value Reference Range Comments PROTIME (BEAKER) (test jqia=218) 14.3 seconds 11.7-14.7 INR (BEAKER) (test skop=642) 1.1 <=5.9 PARTIAL THROMBOPLASTIN TIME (BEAKER) (test lutx=848) 24.7 seconds 22.5-36.0 RECOMMENDED COUMADIN/WARFARIN INR THERAPY RANGESSTANDARD DOSE: 2.0 - 3.0 Includes: PROPHYLAXIS for venous thrombosis, systemic embolization; TREATMENT for venous thrombosis and/or pulmonary embolus.HIGH RISK: Target INR is 2.5-3.5 for patients with mechanical heart valves.CBC W/PLT COUNT & AUTO [id number] 17:23:00* Test Item Value Reference Range Comments WHITE BLOOD CELL COUNT (BEAKER) (test tlik=031) 9.3 K/ L 3.5-10.5 RED BLOOD CELL COUNT (BEAKER) (test crae=828) 4.24 M/ L 4.63-6.08 HEMOGLOBIN (BEAKER) (test zzml=044) 13.3 GM/DL 13.7-17.5 HEMATOCRIT (BEAKER) (test pyzj=216) 38.6 % 40.1-51.0 MEAN CORPUSCULAR VOLUME (BEAKER) (test sxge=003) 91.0 fL 79.0-92.2 MEAN CORPUSCULAR HEMOGLOBIN (BEAKER) (test jlbn=838) 31.4 pg 25.7-32.2 MEAN CORPUSCULAR HEMOGLOBIN CONC (BEAKER) (test diyj=161) 34.5 GM/DL 32.3- 36.5 RED CELL DISTRIBUTION WIDTH (BEAKER) (test vzst=044) 13.4 % 11.6-14.4 PLATELET COUNT (BEAKER) (test quar=737) 223 K/CU MM 150-450 MEAN PLATELET VOLUME (BEAKER) (test ctjg=621) 9.8 fL 9.4-12.4 NUCLEATED RED BLOOD CELLS (BEAKER) (test cqge=284) 0 /100 WBC 0-0 NEUTROPHILS RELATIVE PERCENT (BEAKER) (test mcgp=815) 83 % LYMPHOCYTES RELATIVE PERCENT (BEAKER) (test gufs=052) 7 % MONOCYTES RELATIVE PERCENT (BEAKER) (test zkhw=601) 7 % EOSINOPHILS RELATIVE PERCENT (BEAKER) (test llux=957) 3 % BASOPHILS RELATIVE PERCENT (BEAKER) (test kefx=962) 1 % NEUTROPHILS ABSOLUTE COUNT (BEAKER) (test cggb=619) 7.70 K/ L 1.78-5.38 LYMPHOCYTES ABSOLUTE COUNT (BEAKER) (test uuby=275) 0.67 K/ L 1.32-3.57 MONOCYTES ABSOLUTE COUNT (BEAKER) (test dpiw=943) 0.63 K/ L 0.30-0.82 EOSINOPHILS ABSOLUTE COUNT (BEAKER) (test tkig=886) 0.23 K/ L 0.04-0.54 BASOPHILS ABSOLUTE COUNT (BEAKER) (test qfkw=239) 0.05 K/ L 0.01-0.08 IMMATURE GRANULOCYTES-RELATIVE PERCENT (BEAKER) (test tnxl=0841) 0 % 0-1 CT, BRAIN, WITHOUT [id number] 17:11:00No IV contrastReason for exam:-> SyncopeWhat is the patient's sedation requirement?->No SedationFINAL REPORT CT head without contrast. Reason for exam: Head trauma, headacheSyncope Comparisons: December 06, 2016 Discussion: Multiple axial CT images of the head are provided without contrast evaluated in brain and bone windows. This exam was performed according to our departmental dose optimization program which includes automated exposure control, adjustment of the mA and/or kV according to patient's size and/or use of iterative reconstructive technique. There is age related generalized brain volume loss. Stable advanced supratentorial white matter hypodensity most likely reflects chronic small vessel ischemic disease. 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 No evidence of acute territorial infarct. There are a few tiny foci of subarachnoid blood in bifrontal lateral frontal region. No hydrocephalus, mass effect, or midline shift. There is right-sided scalp hematoma. No calvarial fracture identified. Visualized orbital contents are unremarkable. The visualized paranasal sinuses and mastoid air cells are unremarkable. Impressions: Small foci of bilateral frontal region subarachnoid blood. Short interval follow-up is suggested. Involutional and chronic microvascular ischemic changes. Right scalp hematoma. No calvarial fracture identified. Signed : Haylee Pendleton Verified Date/Time: 04/11/2017 17:11:22 Reading Location: [facility] C013V Neuro Reading Room , CHEST, 1 VIEW, NON [id number] 16:51: 00Reason for exam:->SyncopeFINAL REPORT AP view of the chest dated 04/11/2017 CLINICAL INFORMATION: Syncope Comment: Heart is normal in size. Thoracic aorta is ectatic. Pulmonary vasculature is unremarkable. Lungs are clear. No pulmonary infiltrate or pleural effusion is present. Impression: No active cardiopulmonary disease. Signed: Sugar Cooper Verified Date/Time: 04/11/2017 16:51:21 Reading Location: [facility] C013Y CT Body Reading Room 04: 51 PM POCT-GLUCOSE [id number] 08:00:00* Test Item Value Reference Range Comments POC-GLUCOSE METER (BEAKER) (test yeul=1755) 136 mg/dL 70-110 TESTED AT [address] [address] POCT-GLUCOSE [id number] 07:34:00* Test Item Value Reference Range Comments POC-GLUCOSE METER (BEAKER) (test dkhr=3501) 160 mg/dL 70-110 TESTED AT [address] [address] BASIC METABOLIC [id number] 07:31:00* Test Item Value Reference Range Comments SODIUM (BEAKER) (test srrq=402) 135 meq/L 136-145 POTASSIUM (BEAKER) (test crmi=753) 4.0 meq/L 3.5-5.1 CHLORIDE (BEAKER) (test iesb=114) 102 meq/L 98-107 CO2 (BEAKER) (test uexp=366) 26 meq/L 22-29 BLOOD UREA NITROGEN (BEAKER) (test zdpm=508) 18 mg/dL 7-21 CREATININE (BEAKER) (test fhaf=457) 0.80 mg/dL 0.57-1.25 GLUCOSE RANDOM (BEAKER) (test kraa=781) 138 mg/dL 70-105 CALCIUM (BEAKER) (test suuu=242) 9.4 mg/dL 8.4-10.2 EGFR (BEAKER) (test xonr=8245) 93 mL/min/1.73 sq m ESTIMATED GFR IS NOT ACCURATE CREATININE CLEARANCE IN PREDICTING GLOMERULAR FILTRATION RATE. ESTIMATED GFR IS NOT APPLICABLE FOR DIALYSIS PATIENTS. POCT-GLUCOSE [id number] 17:00:00* Test Item Value Reference Range Comments POC-GLUCOSE METER (BEAKER) (test eqpn=8440) 157 mg/dL 70-110 TESTED AT [place] [address] URINE [id number] 13:29:00* Test Item Value Reference Range Comments CULTURE (BEAKER) (test zcyb=8012) See comment <10,000 col/mL Gram Negative rods<10,000 col/mL Gram Negative Rods of a second type>100,000 col/mL skin [id number] 13:00:00* Test Item Value Reference Range Comments RPR SCREEN (BEAKER) (test cguj=964) Nonreactive Nonreactive POCT-GLUCOSE [id number] 12:22:00* Test Item Value Reference Range Comments POC-GLUCOSE METER (BEAKER) (test gdjt=8581) 143 mg/dL 70-110 TESTED AT [place] [id number] POCT-GLUCOSE [id number] 09:41:00* Test Item Value Reference Range Comments POC-GLUCOSE METER (BEAKER) (test rphd=8517) 207 mg/dL 70-110 TESTED AT [address] [address] BASIC METABOLIC [id number] 08:26:00* Test Item Value Reference Range Comments SODIUM (BEAKER) (test zbqj=859) 137 meq/L 136-145 POTASSIUM (BEAKER) (test ragt=525) 3.8 meq/L 3.5-5.1 CHLORIDE (BEAKER) (test cvfq=285) 105 meq/L 98-107 CO2 (BEAKER) (test ywod=852) 25 meq/L 22-29 BLOOD UREA NITROGEN (BEAKER) (test oyrj=948) 14 mg/dL 7-21 CREATININE (BEAKER) (test begj=531) 0.89 mg/dL 0.57-1.25 GLUCOSE RANDOM (BEAKER) (test wcpp=495) 97 mg/dL 70-105 CALCIUM (BEAKER) (test ypkw=179) 9.2 mg/dL 8.4-10.2 EGFR (BEAKER) (test uhhp=7277) 82 mL/min/1.73 sq m ESTIMATED GFR IS NOT ACCURATE CREATININE CLEARANCE IN PREDICTING GLOMERULAR FILTRATION RATE. ESTIMATED GFR IS NOT APPLICABLE FOR DIALYSIS PATIENTS. POCT-GLUCOSE [id number] 00:17:00* Test Item Value Reference Range Comments POC-GLUCOSE METER (BEAKER) (test xzoj=5448) 123 mg/dL 70-110 TESTED AT [address] [address] POCT-GLUCOSE [id number] 17:30:00* Test Item Value Reference Range Comments POC-GLUCOSE METER (BEAKER) (test bfkg=1403) 136 mg/dL 70-110 TESTED AT [address] [address] POCT-GLUCOSE [id number] 11:54:00* Test Item Value Reference Range Comments POC-GLUCOSE METER (BEAKER) (test aghp=9727) 191 mg/dL 70-110 TESTED AT [address] [address] URINALYSIS W/ [id number] 11:00:00* Test Item Value Reference Range Comments COLOR (BEAKER) (test eftu=192) Yellow CLARITY (BEAKER) (test kzwn=656) Clear SPECIFIC GRAVITY UA (BEAKER) (test pdww=567) 1.011 1.001-1.035 PH UA (BEAKER) (test boyo=324) 6.0 5.0-8.0 PROTEIN UA (BEAKER) (test ntwi=184) Negative Negative GLUCOSE UA (BEAKER) (test nbdo=405) 70 mg/dL Negative KETONES UA (BEAKER) (test khrc=570) Negative Negative BILIRUBIN UA (BEAKER) (test icnb=818) Negative Negative BLOOD UA (BEAKER) (test vwhs=972) Negative Negative NITRITE UA (BEAKER) (test rxll=461) Negative Negative LEUKOCYTE ESTERASE UA (BEAKER) (test owrz=006) Negative Negative UROBILINOGEN UA (BEAKER) (test trta=770) 0.2 mg/dL 0.2-1.0 RBC UA (BEAKER) (test dzqb=833) 1 /HPF WBC UA (BEAKER) (test onfl=680) < /HPF SQUAMOUS EPITHELIAL (BEAKER) (test vwnd=853) < /HPF SOURCE(BEAKER) (test dxfq=0928) Urine, Voided CREATINE KINASE (CK), TOTAL AND [id number] 10:28:00* Test Item Value Reference Range Comments CREATINE KINASE TOTAL (BEAKER) (test ifhm=101) 155 U/L 29-200 CREATINE KINASE-MB (BEAKER) (test hopo=469) 1.7 ng/mL 0.0-6.6 CREATINE KINASE-MB INDEX (BEAKER) (test exbl=162) 1.1 % Effective 03/14/2014: CK-MB Reference Range ChangeNew: 0.0-6.6 Previous: 0.0- 4.9CK-MB Reference Range:<6.7 Normal6.7-10.0 Borderline>10.0 AbnormalTROPONIN [id number] 10:23:00* Test Item Value Reference Range Comments TROPONIN I (BEAKER) (test aiat=586) < ng/mL 0.00-0.03 Effective 03/14/2014: Reference Range ChangeNew: 0.00-0.03 Previous 0.00- 0.15Troponin I (TnI) levels must be interpreted in [...] failure, acidosis, acute neurological disease, and persistent tachyarrhythmia.POCT-GLUCOSE [id number] 07:58:00* Test Item Value Reference Range Comments POC-GLUCOSE METER (BEAKER) (test rzep=5596) 131 mg/dL 70-110 TESTED AT [facility] [address] [facility] [address] VITAMIN B12 AND [id number] 06:06:00* Test Item Value Reference Range Comments VITAMIN B12 (BEAKER) (test ayoq=353) 189 pg/mL 213-816 FOLATE (BEAKER) (test mcjt=197) 9.0 ng/mL >=7.0 Effective 03/14/2014: Folate Reference Range ChangeNew: >=7.0 Previous: >= 5.4HEMOGLOBIN [id number] 05:35:00* Test Item Value Reference Range Comments HEMOGLOBIN A1C (HONORIO) (test qyab=360) 6.1 % 4.3-6.1 POCT-GLUCOSE [id number] 05:23:00* Test Item Value Reference Range Comments POC-GLUCOSE METER (HONORIO) (test ftcy=2073) 210 mg/dL 70-110 TESTED AT [facility] [address] [facility] [address] TSH/FREE T4 IF [id number] 04:51:00* Test Item Value Reference Range Comments THYROID STIMULATING HORMONE (SIGIFREDOAKER) (test qbxi=458) 2.32 uIU/mL 0.35-4.94 CREATINE KINASE (CK), TOTAL AND [id number] 04:23:00* Test Item Value Reference Range Comments CREATINE KINASE TOTAL (BEAKER) (test okgx=472) 124 U/L 29-200 CREATINE KINASE-MB (BEAKER) (test zklg=153) 1.4 ng/mL 0.0-6.6 CREATINE KINASE-MB INDEX (BEAKER) (test sesn=850) 1.1 % Effective 03/14/2014: CK-MB Reference Range ChangeNew: 0.0-6.6 Previous: 0.0- 4.9CK-MB Reference Range:<6.7 Normal6.7-10.0 Borderline>10.0 AbnormalTROPONIN [id number] 03:33:00* Test Item Value Reference Range Comments TROPONIN I (BEAKER) (test fbuj=032) < ng/mL 0.00-0.03 Effective 03/14/2014: Reference Range ChangeNew: 0.00-0.03 Previous 0.00- 0.15Troponin I (TnI) levels must be interpreted in [...] failure, acidosis, acute neurological disease, and persistent tachyarrhythmia.LIPID [id number] 03:23:00* Test Item Value Reference Range Comments TRIGLYCERIDES (BEAKER) (test nffl=087) 92 mg/dL CHOLESTEROL (BEAKER) (test kttk=599) 179 mg/dL HDL CHOLESTEROL (BEAKER) (test pqcc=074) 37 mg/dL LDL CHOLESTEROL CALCULATED (BEAKER) (test nylh=432) 124 mg/dL Triglyceride Reference Range: Low Risk <150 Borderline 150-199 High Risk 200-499 Very High Risk >=500Cholesterol Reference Range: Low Risk <200 Borderline 200-239 High Risk >240HDL Cholesterol Reference Range: Low Risk >=60 High Risk <40LDL Cholesterol Reference Range: Optimal <100 Near Optimal 100-129 Borderline 130-159 High 160-189 Very High >=190 BASIC METABOLIC [id number] 03:23:00* Test Item Value Reference Range Comments SODIUM (BEAKER) (test pmcw=677) 138 meq/L 136-145 POTASSIUM (BEAKER) (test fdey=466) 3.5 meq/L 3.5-5.1 CHLORIDE (BEAKER) (test rfgj=273) 105 meq/L 98-107 CO2 (BEAKER) (test zrqf=197) 23 meq/L 22-29 BLOOD UREA NITROGEN (BEAKER) (test lekw=061) 13 mg/dL 7-21 CREATININE (BEAKER) (test iddj=561) 0.75 mg/dL 0.57-1.25 GLUCOSE RANDOM (BEAKER) (test ytsc=612) 111 mg/dL 70-105 CALCIUM (BEAKER) (test zesn=513) 8.9 mg/dL 8.4-10.2 EGFR (BEAKER) (test zwbw=7155) 100 mL/min/1.73 sq m ESTIMATED GFR IS NOT ACCURATE CREATININE CLEARANCE IN PREDICTING GLOMERULAR FILTRATION RATE. ESTIMATED GFR IS NOT APPLICABLE FOR DIALYSIS PATIENTS. HEPATIC FUNCTION [id number] 03:23:00* Test Item Value Reference Range Comments TOTAL PROTEIN (BEAKER) (test ufhu=992) 6.6 gm/dL 6.0-8.3 ALBUMIN (BEAKER) (test fpvr=3779) 3.8 g/dL 3.5-5.0 BILIRUBIN TOTAL (BEAKER) (test vbvr=415) 0.8 mg/dL 0.2-1.2 BILIRUBIN DIRECT (BEAKER) (test huqo=997) 0.3 mg/dL 0.1-0.5 ALKALINE PHOSPHATASE (BEAKER) (test xzjq=042) 50 U/L 40-150 AST (SGOT) (BEAKER) (test szen=889) 10 U/L 5-34 ALT (SGPT) (BEAKER) (test ynoc=145) 6 U/L 6-55 POCT-GLUCOSE [id number] 22:37:00* Test Item Value Reference Range Comments POC-GLUCOSE METER (BEAKER) (test tcho=8572) 149 mg/dL 70-110 TESTED AT [facility] [address] [facility] [address] CREATINE KINASE (CK), TOTAL AND [id number] 16:33:00* Test Item Value Reference Range Comments CREATINE KINASE TOTAL (BEAKER) (test ebdr=263) 95 U/L 29-200 CREATINE KINASE-MB (BEAKER) (test alsi=830) 1.4 ng/mL 0.0-6.6 CREATINE KINASE-MB INDEX (BEAKER) (test hrqe=643) 1.5 % Effective 03/14/2014: CK-MB Reference Range ChangeNew: 0.0-6.6 Previous: 0.0- 4.9CK-MB Reference Range:<6.7 Normal6.7-10.0 Borderline>10.0 AbnormalTROPONIN [id number] 16:33:00* Test Item Value Reference Range Comments TROPONIN I (BEAKER) (test sozq=193) < ng/mL 0.00-0.03 Effective 03/14/2014: Reference Range ChangeNew: 0.00-0.03 Previous 0.00- 0.15Troponin I (TnI) levels must be interpreted in [...] failure, acidosis, acute neurological disease, and persistent tachyarrhythmia.B-TYPE NATRIURETIC FACTOR (BNP)2016-12-03 16:32:00* Test Item Value Reference Range Comments B-TYPE NATRIURETIC PEPTIDE (BEAKER) (test blky=856) 23 pg/mL 0-100 [id number] 16:26:00* Test Item Value Reference Range Comments MAGNESIUM (BEAKER) (test dwye=721) 1.9 mg/dL 1.6-2.6 BASIC METABOLIC [id number] 16:26:00* Test Item Value Reference Range Comments SODIUM (BEAKER) (test ehnp=487) 136 meq/L 136-145 POTASSIUM (BEAKER) (test zcli=567) 4.0 meq/L 3.5-5.1 CHLORIDE (BEAKER) (test bdfa=696) 102 meq/L 98-107 CO2 (BEAKER) (test ardq=703) 20 meq/L 22-29 BLOOD UREA NITROGEN (BEAKER) (test myce=343) 18 mg/dL 7-21 CREATININE (BEAKER) (test wglb=952) 0.86 mg/dL 0.57-1.25 GLUCOSE RANDOM (BEAKER) (test djcm=386) 195 mg/dL 70-105 CALCIUM (BEAKER) (test sabf=603) 9.4 mg/dL 8.4-10.2 EGFR (BEAKER) (test brox=1134) 85 mL/min/1.73 sq m ESTIMATED GFR IS NOT ACCURATE CREATININE CLEARANCE IN PREDICTING GLOMERULAR FILTRATION RATE. ESTIMATED GFR IS NOT APPLICABLE FOR DIALYSIS PATIENTS. [id number] 16:09:00* Test Item Value Reference Range Comments PROTIME (BEAKER) (test cpnf=357) 13.4 seconds 11.7-14.7 INR (BEAKER) (test cbuk=269) 1.0 <=5.9 PARTIAL THROMBOPLASTIN TIME (BEAKER) (test urzk=437) 27.2 seconds 22.5-36.0 RECOMMENDED COUMADIN/WARFARIN INR THERAPY RANGESSTANDARD DOSE: 2.0 - 3.0 Includes: PROPHYLAXIS for venous thrombosis, systemic embolization; TREATMENT for venous thrombosis and/or pulmonary embolus.HIGH RISK: Target INR is 2.5-3.5 for patients with mechanical heart valves.CBC W/PLT COUNT & AUTO [id number] 16:00:00* Test Item Value Reference Range Comments WHITE BLOOD CELL COUNT (BEAKER) (test jvqo=039) 7.4 K/ L 3.5-10.5 RED BLOOD CELL COUNT (BEAKER) (test opxi=038) 4.34 M/ L 4.63-6.08 HEMOGLOBIN (BEAKER) (test mazz=768) 13.5 GM/DL 13.7-17.5 HEMATOCRIT (BEAKER) (test hakb=223) 40.1 % 40.1-51.0 MEAN CORPUSCULAR VOLUME (BEAKER) (test zouh=400) 92.4 fL 79.0-92.2 MEAN CORPUSCULAR HEMOGLOBIN (BEAKER) (test jjgz=165) 31.1 pg 25.7-32.2 MEAN CORPUSCULAR HEMOGLOBIN CONC (BEAKER) (test lqrf=708) 33.7 GM/DL 32.3- 36.5 RED CELL DISTRIBUTION WIDTH (BEAKER) (test sjmg=280) 13.1 % 11.6-14.4 PLATELET COUNT (BEAKER) (test gjmg=307) 239 K/CU MM 150-450 MEAN PLATELET VOLUME (BEAKER) (test qctg=089) 9.3 fL 9.4-12.4 NUCLEATED RED BLOOD CELLS (BEAKER) (test msbd=879) 0 /100 WBC 0-0 NEUTROPHILS RELATIVE PERCENT (BEAKER) (test oiyc=835) 72 % LYMPHOCYTES RELATIVE PERCENT (BEAKER) (test oqyh=383) 15 % MONOCYTES RELATIVE PERCENT (BEAKER) (test puii=027) 8 % EOSINOPHILS RELATIVE PERCENT (BEAKER) (test oaln=396) 4 % BASOPHILS RELATIVE PERCENT (BEAKER) (test ohqd=382) 1 % NEUTROPHILS ABSOLUTE COUNT (BEAKER) (test iffc=756) 5.32 K/ L 1.78-5.38 LYMPHOCYTES ABSOLUTE COUNT (BEAKER) (test vdep=446) 1.09 K/ L 1.32-3.57 MONOCYTES ABSOLUTE COUNT (BEAKER) (test myhi=360) 0.61 K/ L 0.30-0.82 EOSINOPHILS ABSOLUTE COUNT (BEAKER) (test dvwl=122) 0.29 K/ L 0.04-0.54 BASOPHILS ABSOLUTE COUNT (BEAKER) (test upep=853) 0.05 K/ L 0.01-0.08 IMMATURE GRANULOCYTES-RELATIVE PERCENT (BEAKER) (test kvzd=5973) 0 % 0-1
--- OUTSIDE RECORDS SUMMARY | 2018-01-28 04:24 | XMS REPORT | Clinical Summary ---
Author Author ASHOK MevioSt. Luke'S Wood River Medical CenterBeijing Eedoo TechnologySt. Anthony's Hospital Address Unknown Phone Unavailable Care Team Providers Care Flight Radio Operator Name Role Phone PCP Unavailable Allergies Active [...] 30 minutes 04/11/2017 or less, initial encounter ([facility]) Delirium 12/06/2016 Vitamin B 12 deficiency 12/06/2016 PAF (paroxysmal atrial fibrillation) (HCC) 12/05/2016 Cerebrovascular accident (CVA), unspecified mechanism (HCC) 12/03/2016 Hypertension Diabetes mellitus ([facility]) Encounters Date Type Specialty Care Team Description [...] of 30 minutes or less, initial encounter ([facility]) (Primary Dx);Coagulopathy (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);PAF (paroxysmal atrial fibrillation) ([facility]) 04/11/2017 Orders Only General Internal Medicine after [...] Procedure Name Priority Date/Time Associated Diagnosis Comments CO RESUP NPTERF WND BODY Routine 07/25/2017 Results for this 2.6-7.5 CM 4:14 PM CDT procedure are in the results section. CRITICAL CARE Routine 04/11/2017 Results for this 7:54 PM SENIOR VICE PRESIDENT & GENERAL COUNSEL procedure are in the results section. after [...] MD Report Verified Date/Time:07/25/2017 15:44:55 Reading Location: [facility] B1 C013Y CT Body Reading Room Procedure [...] Report Verified Date/Time: 07/25/2017 15:44:55 Reading Location: [facility] C013Y CT Body Reading Room * CT spine cervical without IV contrast (07/25/2017 1:36 PM) Specimen Performing Laboratory [employer] Narrative FINAL REPORT CT cervical spine without [...] MD Report Verified Date/Time:07/25/2017 13:45:12 Reading Location: [facility] C013V Neuro Reading Room Procedure Note [...] Report Verified Date/Time: 07/25/2017 13:45:12 Reading Location: [address] Neuro Reading Room * CT brain without IV contrast (07/25/2017 1:36 PM) Only the most recent of 3 results within the time period is included. Specimen Performing Laboratory [employer]IS Narrative FINAL REPORT CT head without [...] MD Report Verified Date/Time:07/25/2017 13:32:22 Reading Location: [address] Neuro Reading Room Procedure Note Interface, [...] Report Verified Date/Time: 07/25/2017 13:32:22 Reading Location: [address] Neuro Reading Room * CBC with [...] Performing Laboratory Blood - Line, Venous [facility] [address] [address] * CBC with platelet count + automated diff (07/25/2017 12:58 PM) Only the most recent of 5 results within the time period is included. Specimen Performing Laboratory Blood Narrative The following orders were created for panel order CBC with platelet count + automated diff. Procedure Abnormality Status --------- - ------ CBC with platelet count ...[[id number]]AbnormalFinal result Please view results for these tests [...] Specimen Performing Laboratory Blood - Line, [place] [address] * Troponin I (not available at [facility]) (06/14/2017 11:24 AM) Only the most recent of 2 results within the time period is included. Component Value Ref Range Troponin I 0.01 0.00 - 0.03 ng/mL Specimen Performing Laboratory Blood [place] [id number] Narrative Troponin I (TnI) levels must be [...] (CK), Total and MB (not available at [facility]) (06/14 11:24 AM) Component Value Ref Range Total CK 40 29 - 200 U/L CK-MB 0.8 0.0 - 6.6 ng/mL MB Relative Index 2.0 % Specimen Performing Laboratory Blood [address] [address] Narrative CK-MB Reference Range: <6.7Normal 6.7-10.0Borderline >10.0 Abnormal * RHYTHM STRIP - SCAN (04/15/2017 10:00 AM) * POC-Glucose meter (04/13/2017 11:59 AM) Only the most recent of 4 results within the time period is included. Component Value Ref Range POC-Glucose Meter 149 (H)Comment: TESTED AT [address] 70 - 110 mg /dL [facility] [address] Specimen Performing [place] [address] * Phosphorus (04/13/2017 4:57 AM) Only the most recent of 2 results within the time period is included. Component Value Ref Range Phosphorus 2.8 2.3 - 4.7 mg/dL Specimen Performing [place] [address] * Magnesium (04/13/2017 4:57 AM) Only the most recent of 2 results within the time period is included. Component Value Ref Range Magnesium 1.7 1.6 - 2.6 mg/dL Specimen Performing [place] [address] * CT brain without IV contrast portable [...] MD Report Verified Date/Time:04/12/2017 13:28:13 Reading Location: [facility] C013V Neuro Reading Room Procedure Note Interface, External Ris In - 04/12/2017 1:30 PM SENIOR VICE PRESIDENT & GENERAL COUNSEL FINAL REPORT CT head without contrast. Reason [...] Report Verified Date/Time: 04/12/2017 13:28:13 Reading Location: [facility] C013V Neuro Reading Room * Critical [...] or life-threatening deterioration of the following conditions: INTELLIGENCE APPLICATIONS failure or compromise. Critical care was time [...] 382 ms QTC Calculation(Bazett) 420 ms P [place] 56 degrees R [place] 52 degrees T [place] 60 degrees Normal sinus rhythm with sinus arrhythmia Normal ECG When compared with ECG of 03-DEC-2016 16:16, Criteria for Septal infarct are no longer Present(Lead V2 is no longer misplaced) Confirmed by MD DEVINE YOCHAI ([id number]) on 04/12/2017 6:25:57 AM Procedure Note Interface, External Ris In - 04/12/2017 6:26 AM SENIOR VICE PRESIDENT & GENERAL COUNSEL Ventricular Rate 73 BPM Atrial Rate 73 BPM P-R Interval 138 ms QRS Duration 80 ms Q-T Interval 382 ms QTC Calculation(Bazett) 420 ms P [place] 56 degrees R [place] 52 degrees T [place] 60 degrees Normal sinus rhythm with sinus [...] Specimen Performing Laboratory Blood - Line, Venous [address] [address] Narrative RECOMMENDED COUMADIN/WARFARIN INR THERAPY RANGES STANDARD DOSE: 2.0 - 3.0 Includes: PROPHYLAXIS for venous thrombosis, systemic embolization; TREATMENT for venous thrombosis and/or pulmonary embolus. HIGH RISK: Target INR is 2.5-3.5 for patients with mechanical heart valves. * BUN (04/11/2017 4:53 PM) Component Value Ref Range BUN 17 7 - 21 mg/dL Specimen Performing Laboratory Blood - Line, Venous [address] [address] * Glucose (04/11/2017 4:53 PM) Component Value Ref Range Glucose 184 (H) 70 - 105 mg/dL Specimen Performing Laboratory Blood - Line, Venous [address] [address] * Creatinine, serum (04/11/2017 4:53 PM) Component Value Ref Range Creatinine 0.73 0.57 - 1.25 mg/dL EGFR 103Comment: ESTIMATED GFR IS NOT ACCURATE mL/min/1.73 sq m CREATININE CLEARANCE IN PREDICTING GLOMERULAR FILTRATION RATE. ESTIMATED GFR IS NOT APPLICABLE FOR DIALYSIS PATIENTS. Specimen Performing Laboratory Blood - Line, Venous [address] [address] * Electrolytes (04/11/2017 4:53 PM) Component Value Ref Range Sodium 136 136 - 145 meq/L Potassium 3.5 3.5 - 5.1 meq/L Chloride 103 98 - 107 meq/L CO2 22 22 - 29 meq/L Specimen Performing Laboratory Blood - Line, Venous [address] [address] * XR chest 1 view portable / [...] MD Report Verified Date/Time:04/11/2017 16:51:21 Reading Location: [facility] C013Y CT Body Reading Room Procedure Note Interface, External Ris In - 04/11/2017 5:05 PM SENIOR VICE PRESIDENT & GENERAL COUNSEL FINAL REPORT AP view of the chest dated 04/11/2017 CLINICAL INFORMATION: Syncope Comment: Heart is normal in size. Thoracic aorta is ectatic. Pulmonary vasculature is unremarkable. Lungs are clear. No pulmonary infiltrate or pleural effusion is present. Impression: No active cardiopulmonary disease. Signed: Sugar Cooper MD Report Verified Date/Time: 04/11/2017 16:51:21 Reading Location: [facility] B1 C013Y CT Body Reading Room * PERIPHERAL VASCULAR REPORT - SCAN (02/18/2017 10:50 AM) after 12/18/2016
--- NOTE | 2018-02-12 06:05 | Discharge Summary ---
CHIEF COMPLAINT: Acute dyspnea, PE. FINAL DIAGNOSES: 1. Chronic respiratory failure. 2. Aspiration pneumonia. 3. Urinary tract infection. 4. Atrial fibrillation. 5. Cerebrovascular accident. 6. Diabetes type 2. 7. Placement of tracheostomy. 8. Placement of percutaneous endoscopic gastrostomy tube. PROCEDURES: 1. Transfusions of blood products. 2. Tracheostomy. 3. PEG placement. DISPOSITION: [facility]. [id number] male presents to the ER, noted to be nonverbal since his stroke earlier this year. Has been bedbound since his stroke. He has had 2 previous strokes in the past. Has history of prostate CA, received radiotherapy a year ago [place]. Has done reasonably well although being bedbound over the last 3 days. He began having a cough with shortness of breath, but no fever. The cough has been with production. Was able to swallow, but he started coughing with worsening sputum production and shortness of breath on morning of admission, was brought to my office the morning of admission. Received an antibiotic injection in the office and was recommended that they present the patient to the ER. Patient is noted to be nonverbal, though can follow verbal commands. Noted to have right-sided hemiparesis with some aphasia. Extensive evaluation was carried out in the ER. Admission is made for evaluation and care regarding issues of cough with shortness of breath secondary to bronchitis versus early pneumonia. Shortness of breath also due to active PE affecting right segmental lower lobe pulmonary artery. History of ischemic stroke with right-sided hemiparesis and aphasia. Patient has had generalized muscle atrophy. Patient has cough with swallowing, request speech therapy review. Laboratory findings in ER showed evidence of ketonuria, has poor oral intake, appears to be somewhat malnutritioned. Has mild diabetes, will place the patient on a sliding scale insulin coverage. Underwent cardiology follow due to x-ray findings of PE, was reviewed by Dr. Jasmine, and his assessment was pulmonary embolism, segmental; negative troponin; normal BNP; hypertension; dyslipidemia; diabetes; history of CVA; arrhythmia, unspecified. Was also being seen by Dr. Rashid, general surgery. Further studies were showing evidence of small-bowel obstruction and the patient did have a rapid event and now on vent status in ICU; and with his further review, his assessment was small-bowel obstruction, but this now seems to be resolving. Recommending continue supportive care. No findings that would warrant surgical intervention at this time. No signs of acute surgical abdomen. Findings of leukocytosis or sepsis was being addressed by Dr. March; and his impression was questionable sepsis due to aspiration pneumonia not present on admission, acute respiratory failure appears to be multifactorial including pneumonia and pulmonary embolism, status post small-bowel obstruction. Recommend changing Zosyn to 3.375 IV piggyback to q.8h. infused over 4 hours, taper off the steroids. Initially, patient was on ER hold, began IV fluids, began Lanoxin, DVT prophylaxis. Early labs were showing sodium and potassium to be stable, kidney function stable, glucose 98, CBC stable. The CT of the chest was showing right lower lobe PE. The patient was now able to go to the med-surg floor where he was put on respiratory treatments, was started on azithromycin. Daily medications were continuing as well. Was put on lispro coverage, also receiving ceftriaxone 1 g IV q.24. Further laboratory studies shows a decrease in the potassium of 3.2 and the patient was started on replenishment and the patient began to look better. No issues of fever or shortness of breath. Still was showing poor p.o. intake. It was also felt on December 20, 2017 the patient was having possible probable oropharyngeal dysphagia, waiting on speech therapy recommendations. Had some issues with vomiting and dysphagia, concerned about questionable aspiration. White blood cell count had increased in 1 day up to 14,000. The Rocephin was then stopped. Patient was switched over to Zosyn and the patient was resting in his bed, is continued on ADA diet. The modified barium swallow was conducted. The patient passed the study. The white cell count was remaining in the low to mid teens. Up until December 23, he was doing fairly well and on this date at 2250 hours, he had a rapid response regarding respiratory distress. Decision was made to intubate the patient. Patient's status was upgraded to ICU. Now receiving respiratory care through Dr. Irby and Dr. Restrepo. Now receiving continued azithromycin and piperacillin. Was on conscious sedation while vented. Also receiving vasopressors for BP support. Patient was showing response to painful stimuli. X-rays of the abdomen were showing evidence of small-bowel obstruction. Recommending supportive care, prognosis is poor. On December 24, 2017, code status was discussed with the family. They request full code for now, even though they were told the prognosis was poor. Patient continued to be intubated and sedated in ICU. He was becoming anemic. On December 26, it was noted hemoglobin of 9.8, white cell count was still at 12,000, was being n.p.o. status since his event. Discussions now were made for NG tube placement. Potassium continued to trend down to 2.6 on December 27, continuing with potassium replenishment, and it was discussed at that time on that date to wean as tolerated, to discontinue the pressors. The NG tube was placed and was started on tube feedings, and it was noted on December 28 that the patient failed weaning procedures. White blood cell count jumped up to 21,000. Followup white cell count fell to 13,000. Discussions were now being addressed for tracheostomy. Dr. Rashid was asked to see the patient regarding this matter to discuss with the family the procedure. Hemoglobin continued to trend down to 8.5, potassium was still noted to be a little difficult to correct, on December 30 the value was 2.5. On December 31, 2017, the potassium was 3.0, white cell count was 15,000, hemoglobin was at 9. Continued to remain on vent. The trach was put on hold for few days. Patient continued to show to be nonresponsive. On January 01, the potassium was 3.9. He is tolerating his tube feeding. On January 01, his white cell count fidel back to 19,000, potassium improved to 3.3. Hemoglobin trended back down to 8.3. With further discussions regarding trach, the family has now declined this procedure. Hemoglobin dropped further to 8.0 on January 04, and on this date Dr. March took the patient off the Zosyn and started on micafungin, failed weaning trial again. Patient noted to be very weak. Agreement was made for PEG tube placement per family and now they have readjusted their concerns. Agreement has been made now for trach as well. On January 06, hemoglobin trended down further to 7.8. Agreement was made to transfuse the patient. The tracheostomy was carried out. PEG was deferred for the time being. On January 07, 2018, the white cell count was 8000. Following transfusion, hemoglobin is now 10.2, potassium continuing to be difficult in obtaining stable levels 2.8 on January 08. The PEG was carried out in the usual fashion on January [address] Woods without difficulty. Discussions were being made for LTAC placement post procedures; and the patient was stable and was able to be discharged to [facility] LT[facility] ICU on January 08, 2018 in guarded condition. EKGs on the patient were showing normal sinus rhythm, nonspecific ST-T-wave abnormalities. Lower extremity Dopplers were showing no evidence of DVT. Left upper extremity Doppler shows possible evidence for the study to reveal positive for DVT in the cephalic and the basilic vein. Procedures were carried out. As mentioned, he was transferred to [facility] ICU. He will continue on his current MARs, continue his diet through his PEG, medication through his PEG. Continue on trach support. I will continue to monitor the patient's care at that facility on daily basis. Will continue to ask cardiology follow, pulmonary follow, infectious disease follow as his care continues in that location. Also the time of his code status will need to be addressed after discussion with the family. Dictated By: CLAUDE Hall RAY BERGER MD Job#: [id number]
== END 2018-01-08 16:18 | DRG 4 ==
LOC: ER 12:44 → ERHOLD 19:09 → MED/SURG3 20:18 → ICU 12-23 22:41
PROVIDERS: ADMIT Internal Medicine; ATTEND Internal Medicine
PROC: 5A1955Z Respiratory Ventilation, Greater than 96 Consecutive Hours (ICD-10-PCS; 2017-12-23)
PROC: 5A1955Z Respiratory Ventilation, Greater than 96 Consecutive Hours (ICD-10-PCS; 2017-12-23)
PROC: 0BH17EZ Insertion of Endotracheal Airway into Trachea, Via Natural or Artificial Opening (ICD-10-PCS; 2017-12-23)
PROC: 30233N1 Transfusion of Nonautologous Red Blood Cells into Peripheral Vein, Percutaneous Approach (ICD-10-PCS; 2018-01-06)
PROC: 0B110F4 Bypass Trachea to Cutaneous with Tracheostomy Device, Open Approach (ICD-10-PCS; principal; 2018-01-06 08:30)
PROC: 0DH63UZ Insertion of Feeding Device into Stomach, Percutaneous Approach (ICD-10-PCS; 2018-01-07)
DX: J69.0 Pneumonitis due to inhalation of food and vomit (principal); B37.49 Other urogenital candidiasis; T83.511A Infection and inflammatory reaction due to indwelling urethral catheter, initial encounter; I26.99 Other pulmonary embolism without acute cor pulmonale; J96.01 Acute respiratory failure with hypoxia; B37.1 Pulmonary candidiasis; B37.7 Candidal sepsis; R65.21 Severe sepsis with septic shock; I46.9 Cardiac arrest, cause unspecified; I69.351 Hemiplegia and hemiparesis following cerebral infarction affecting right dominant side; E46 Unspecified protein-calorie malnutrition; K56.609 Unspecified intestinal obstruction, unspecified as to partial versus complete obstruction; K92.2 Gastrointestinal hemorrhage, unspecified; N17.9 Acute kidney failure, unspecified; D63.8 Anemia in other chronic diseases classified elsewhere; I69.328 Other speech and language deficits following cerebral infarction; I10 Essential (primary) hypertension; F03.90 Unspecified dementia, unspecified severity, without behavioral disturbance, psychotic disturbance, mood disturbance, and anxiety; Z74.01 Bed confinement status; Z85.46 Personal history of malignant neoplasm of prostate; I69.320 Aphasia following cerebral infarction; E78.5 Hyperlipidemia, unspecified; Z88.6 Allergy status to analgesic agent; Z83.3 Family history of diabetes mellitus; Z80.9 Family history of malignant neoplasm, unspecified; E86.0 Dehydration; F01.50 Vascular dementia, unspecified severity, without behavioral disturbance, psychotic disturbance, mood disturbance, and anxiety; Z91.81 History of falling; R91.8 Other nonspecific abnormal finding of lung field; B96.89 Other specified bacterial agents as the cause of diseases classified elsewhere; L89.152 Pressure ulcer of sacral region, stage 2; L89.622 Pressure ulcer of left heel, stage 2; L89.612 Pressure ulcer of right heel, stage 2; I48.0 Paroxysmal atrial fibrillation; E11.65 Type 2 diabetes mellitus with hyperglycemia; D64.9 Anemia, unspecified; E87.6 Hypokalemia; R62.7 Adult failure to thrive; Z68.20 Body mass index [BMI] 20.0-20.9, adult; J20.9 Acute bronchitis, unspecified; R13.12 Dysphagia, oropharyngeal phase; I50.9 Heart failure, unspecified; E83.42 Hypomagnesemia; E88.09 Other disorders of plasma-protein metabolism, not elsewhere classified
CPT/HCPCS: 31500; 36415; 36430; 36600; 43246; 51700; 51701; 71045; 71260; 74018; 74177; 74230; 76700; 80048; 80053; 81001; 82150; 82270; 82550; 82553; 82805; 82948; 83036; 83605; 83690; 83735; 83880; 84100; 84132; 84134; 84152; 84443; 84484; 85025; 85379; 85384; 85610; 85730; 86850; 86900; 86920; 87040; 87070; 87086; 87205; 87493; 93005; 93970; 93971; 94002; 94003; 94640; 96361; 96366; 96372; 97139; 99284; C1751; J0330; J0456; J0610; J0696; J1644; J1650; J1720; J1940; J2060; J2248; J2250; J2370; J2405; J2543; J3475; J3480; J7030; J7040; J7050; J7070; J7799; P9016; Q9967